=== PATIENT | male | born 1950 | race Caucasian/White ===

== ENCOUNTER 2022-09-09 11:35 | Emergency (ER) | payer OTHER ==
--- OUTSIDE RECORDS SUMMARY | 2022-09-09 11:43 | XMS REPORT | Continuity of Care Document ---
:1950 Author Organization [facility] t Address [address] [place] [address] Care Team Providers Name Role Phone Jason Isaias Villa Attending Clinician Unavailable Ryan Lambert Attending Clinician Unavailable Alberto Attending Clinician Unavailable EMANUEL DEL ROSARIO Attending Clinician Unavailable NATALIE CASTILLO Attending Clinician Unavailable Radiology Attending Clinician Unavailable Kristin Mccall Attending Clinician Unavailable Gerard Knutson MD Attending Clinician RADIOLOGY Attending Clinician Unavailable Lan Ledbetter Admitting Clinician Unavailable Alberto Admitting Clinician Unavailable Ryan Lambert Admitting Clinician Unavailable Payers Payer Name Policy Type Policy Number Effective Date Expiration Date Radha magaña MEDICARE B-[place]: [id number] 2017 NOVITAS SOLUTIONS 00:00:00 TRANSAMERICA [id number] [employer] (MEDICARE SUPPLEMENT) TRANSAMERICA C1 [id number] [facility] MEDICARE NOVITAS [id number] [facility] TRANSAMERICA C1 [id number] [facility] MEDICARE NOVITAS MB [id number] [facility] MEDICARE NOVITAS MB [id number] [facility] [place] [id number] [facility] MEDICARE PART A [id number] \\T\\ B - MEDICARE MEDICARE PART A [id number] 2017 \\T\\ B 00:00:00 COMMERCIAL [id number] 2018 NON-CONTRACT 00:00:00 GENERIC Problems Condition Condition Condition Status Onset Resolution Last Treating Co mments Source Name Details Category Date Date Treatment Clinician Date Pain of Pain of Problem Active 2021-09 Sarah left hip Left Hip 0-26 Orthop e joint Joint 00:00: dic 00 Sports Medicin e Situation Situation Problem Active 2016-09 Aza augusto with with 0-20 Orthope explicit Explicit 00:00: dic context Context 00 Sports Medicin e 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 of 9-06 Orthope hip Hip 00:00: dic 00 Sports Medicin e [id number] Atrial Problem Common flutter, Spirit unspecifie - [facility] d type [facility] [id number] Odynophagi Problem Com mon a [facility] - [facility] [id number] Iron Problem Common deficiency Spirit anemia, - [facility] unspecifie [facility] iron [facility] deficiency Medica l anemia Center type [id number] Benign Problem Common prostatic Spirit hyperplasi - [facility] a, St unspecifie [facility] d whether Medical lower Center urinary tract symptoms present Thyroid Thyroid Problem Common nodule nodule [facility] [id number] Atrial Problem Common fibrillati Spirit on, - [facility]I unspecifie [facility] [id number] Mixed Problem Common hyperlipid Spirit emia - [facility] [id number] Essential Problem Comm on (primary) Spirit hypertensi - [facility] on [facility] [id number] Nontraumat Problem C ommon 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 extent Chronic Stage 3a Problem Common kidney chronic Spirit disease kidney - [facility] stage 3A disease [facility] [id number] Gastric Problem Commo n ulcer, Spirit unspecifie - [facility] d [facility] d whether gastric ulcer hemorrhage or perforatio n present [id number] Constipati Problem Com mon on, Spirit unspecifie - [facility] d constipati [facility] on type Medical Center Allergies, Adverse Reactions, Alerts Allergy Allergy Status Severity Reaction(s) Onset Inactive Treating Comm ents Source Name Type Date Date Clinician adhesive DA Active [place] 2019-09 [facility] tape 09-23 00:00: [address] latex DA Active [place] 2019-09 [facility] 09-23 00:00: [address] adhesive DA Active [place] RASH 2019-09 [facility] tape 09-23 00:00: [address] latex DA Active [place] RASH. 2019-09 [facility] 09-23 00:00: [address] adhesive DA Active LA 2016-09 [facility] tape 0 00:00: [address] latex DA Active [place] 2016-09 [facility] 0 00:00: [address] adhesive DA Active [place] RASH 2016-09 [facility] tape 0 00:00: [address] latex DA Active [place] RASH. 2016-09 [facility] 0 00:00: [address] LATEX Allergy Active Sarah GLOVES to 9-06 Orthope substanc 00:00: dic e 00 Sports Medicin e LATEX DRUG Active Rash [facility] INGREDI 6-15 ity of 00:00: [place] [address] [facility] Latex Latex Active Unknown [facility] Social History Social Habit Start Date Stop Date Quantity Comments Source Exposure to Not sure [facility] Haile l[place] SARS-CoV-2 of Medicine (event) History of [facility] - Tobacco Use [facility] Sex Assigned At [facility] markie - [facility] Tobacco use and 2021-06-09 2021-06-09 Former user [facility] [employer]izan ollege exposure 00:00:00 00:00:00 of Medicine Alcohol intake 2021-06-09 2021-06-09 Ex-drinker [facility] Col lege 00:00:00 00:00:00 (finding) of Medicine Smoking Status Start Date Stop Date Source Never Smoker [facility] Former Smoker 2022-07-10 00:00:00 2022-07-10 00:00:00 [facility] Medications Ordered Filled Start Stop Current Ordering Indication Dosage Frequency Signature Comments Components Source Medication Medication Date Date Medication? Clinician (SIG) Name Name Nitazoxanid 2020-09 Yes 500mg Take 500 B aylor e (ALINIA) 0-04 mg by [facility] 500 MG TABS 13:58: mouth two o f 25 times Medicin daily. e Nitazoxanid 2020-09 Yes 500mg Take 500 B aylor e (ALINIA) 0-04 mg by College 500 MG TABS 13:58: mouth two o f 25 times Medicin daily. e doxycycline Yes TAKE ONE [facility] (VIBRA-TABS 05-27 () College ) 100 MG 00:00: TABLET(S) of tablet 00 BY MOUTH Medicin IN THE e EVENING WITH DINNER. levofloxaci Yes TAKE ONE Ba ylor n 05-27 () College (LEVAQUIN) 00:00: TABLET(S) of 250 MG 00 BY MOUTH Medicin tablet DAILY. e doxycycline Yes TAKE ONE [facility] (VIBRA-TABS 05-27 (1) College ) 100 MG 00:00: TABLET(S) of tablet 00 BY MOUTH Medicin IN THE e EVENING WITH DINNER. levofloxaci Yes TAKE ONE Ba ylor n 05-27 () College (LEVAQUIN) 00:00: TABLET(S) of 250 MG 00 BY MOUTH Medicin tablet DAILY. e pantoprazol Yes TAKE ONE Ba ylor e 05-15 () College (PROTONIX) 00:00: TABLET(S) of 40 MG 00 BY MOUTH Medicin tablet EVERY e MORNING. pantoprazol Yes TAKE ONE Ba ylor e 05-15 () [place] (PROTONIX) 00:00: TABLET(S) of 40 MG 00 BY MOUTH Medicin tablet EVERY e MORNING. Bupivicaine Bupivicaine 2020-0 No 5mg Common [place] Woolwine 05-30 Spirit 00:00: - [facility] Kenalog Kenalog 2020-0 No 40mg Common (Triamcinol (Triamcinol 05-30 S pirit one) one) 00:00: - [facility] Bupivicaine Bupivicaine 2020-0 No 5mg Common [place] Woolwine 05-30 Spirit 00:00: - [facility] 00 [facility] Kenalog Kenalog 2020-0 No 40mg Common (Triamcinol (Triamcinol 9-24 S pirit one) one) 00:00: - [facility] 00 [facility] Bupivicaine Bupivicaine 2020-0 No 5mg Common [place] Woolwine 9-24 Spirit 00:00: - [facility] 00 [facility] Kenalog Kenalog 2020-0 No 40mg Common (Triamcinol (Triamcinol 9-24 S pirit one) one) 00:00: - [facility] 00 [facility] Bupivicaine Bupivicaine 2020-0 No 5mg [facility] [place] Wool[place] 9-24 Spirit 00:00: - [facility] 00 [facility] Kenalog Kenalog 2020-0 No 40mg Common (Triamcinol (Triamcinol 9-24 S pirit one) one) 00:00: - [facility] 00 [facility] Bupivicaine Bupivicaine 2020-0 No 5mg [facility] [place] 9-24 Spirit 00:00: - [facility] 00 [facility] Kenalog Kenalog 2020-0 No 40mg Common (Triamcinol (Triamcinol 9-24 S pirit one) one) 00:00: - [facility] 00 [facility] Bupivicaine Bupivicaine 2020-0 No 5mg [facility] [place] 9-24 Spirit 00:00: - [facility] 00 [facility] Kenalog Kenalog 2020-0 No 40mg Common (Triamcinol (Triamcinol 9-24 S pirit one) one) 00:00: - [facility] 00 [facility] Bupivicaine Bupivicaine 2020-0 No 5mg [facility] [place] 9-24 Spirit 00:00: - [facility] 00 [facility] Kenalog Kenalog 2020-0 No 40mg Common (Triamcinol (Triamcinol 9-24 S pirit one) one) 00:00: - [facility] 00 [facility] Bupivicaine Bupivicaine 2020-0 No 5mg [facility] [place] 9-24 Spirit 00:00: - [facility] 00 [facility] Kenalog Kenalog 2020-0 No 40mg Common (Triamcinol (Triamcinol 9-24 S pirit one) one) 00:00: - [facility] 00 [facility] Bupivicaine Bupivicaine 2020-0 No 5mg Common [place] 9-24 Spirit 00:00: - [facility] 00 [facility] Kenalog Kenalog 2020-0 No 40mg Common (Triamcinol (Triamcinol 9-24 S pirit one) one) 00:00: - [facility] 00 [facility] Bupivicaine Bupivicaine 2020-0 No 5mg Common [place] 9-24 Spirit 00:00: - [facility] 00 [facility] Kenalog Kenalog 2020-0 No 40mg Common (Triamcinol (Triamcinol 9-24 S pirit one) one) 00:00: - [facility] 00 [facility] Bupivicaine Bupivicaine 2020-0 No 5mg [facility] [place] 9-24 Spirit 00:00: - [facility] 00 [facility] Kenalog Kenalog 2020-0 No 40mg Common (Triamcinol (Triamcinol 9-24 S pirit one) one) 00:00: - [facility] 00 [facility] Bupivicaine Bupivicaine 2020-0 No 5mg [facility] [place] 9-24 Spirit 00:00: - [facility] 00 [facility] Kenalog Kenalog 2020-0 No 40mg Common (Triamcinol (Triamcinol 9-24 S pirit one) one) 00:00: - [facility] 00 [facility] Bupivicaine Bupivicaine 2020-0 No 5mg [facility] [place] 9-24 Spirit 00:00: - [facility] 00 [facility] Kenalog Kenalog 2020-0 No 40mg Common (Triamcinol (Triamcinol 9-24 S pirit one) one) 00:00: - [facility] 00 [facility] LISINOPRIL 2016- Yes Take by Univ ers ORAL 7-13 mouth. ity of 13:37: [address] IBUPROFEN-F Yes 20mg Take 20 mg Univers AMOTIDINE 7-13 by mouth. ity o f ORAL 13:37: [address] LISINOPRIL Yes Take by Univ ers ORAL 7-13 mouth. ity of 13:37: [address] IBUPROFEN-F 2017-0 Yes 20mg Take 20 mg [facility] AMOTIDINE 7-13 by mouth. ity o f ORAL 13:37: [address] Xarelto Xarelto No Xarelto Pantoprazol Pantoprazol No Pantoprazo e Sodium e Sodium le Sodium Lisinopril Lisinopril No Lisinopril Azithromyci Azithromyci No Azithromyc n n in CoQ-10 100 CoQ-10 100 No 1{capsu CoQ-10 100 MG MG le_with MG _a_meal } Potassium Potassium No Potassium Chloride ER Chloride ER Chloride ER Iron 325 Iron 325 No 1{table Iron 325 (65 Fe) MG (65 Fe) MG t} (65 Fe) MG Furosemide Furosemide No Furosemide Amoxicillin Amoxicillin No Amoxicilli n Cephalexin Cephalexin No Cephalexin Aspirin 81 Aspirin 81 No Aspirin 81 Xarelto Xarelto No Xarelto Pantoprazol Pantoprazol No Pantoprazo e Sodium e Sodium le Sodium Lisinopril Lisinopril No Lisinopril Azithromyci Azithromyci No Azithromyc n n in CoQ-10 100 CoQ-10 100 No 1{capsu CoQ-10 100 MG MG le_with MG _a_meal } Potassium Potassium No Potassium Chloride ER Chloride ER Chloride ER Iron 325 Iron 325 No 1{table Iron 325 (65 Fe) MG (65 Fe) MG t} (65 Fe) MG Furosemide Furosemide No Furosemide Amoxicillin Amoxicillin No Amoxicilli n Cephalexin Cephalexin No Cephalexin Aspirin 81 Aspirin 81 No Aspirin 81 Xarelto Xarelto No Xarelto Pantoprazol Pantoprazol No Pantoprazo e Sodium e Sodium le Sodium Lisinopril Lisinopril No Lisinopril Azithromyci Azithromyci No Azithromyc n n in CoQ-10 100 CoQ-10 100 No 1{capsu CoQ-10 100 MG MG le_with MG _a_meal } Potassium Potassium No Potassium Chloride ER Chloride ER Chloride ER Iron 325 Iron 325 No 1{table Iron 325 (65 Fe) MG (65 Fe) MG t} (65 Fe) MG Furosemide Furosemide No Furosemide Amoxicillin Amoxicillin No Amoxicilli n Cephalexin Cephalexin No Cephalexin Aspirin 81 Aspirin 81 No Aspirin 81 Xarelto Xarelto No Xarelto Pantoprazol Pantoprazol No Pantoprazo e Sodium e Sodium le Sodium Lisinopril Lisinopril No Lisinopril Azithromyci Azithromyci No Azithromyc n n in CoQ-10 100 CoQ-10 100 No 1{capsu CoQ-10 100 MG MG le_with MG _a_meal } Potassium Potassium No Potassium Chloride ER Chloride ER Chloride ER Iron 325 Iron 325 No 1{table Iron 325 (65 Fe) MG (65 Fe) MG t} (65 Fe) MG Furosemide Furosemide No Furosemide Amoxicillin Amoxicillin No Amoxicilli n Cephalexin Cephalexin No Cephalexin Aspirin 81 Aspirin 81 No Aspirin 81 Vitamin E Vitamin E No 1{capsu QD Vitamin E 180 MG (400 180 MG (400 le} 180 MG UNIT) UNIT) (400 UNIT) Amoxicillin Amoxicillin No Amoxicilli n Furosemide Furosemide No Furosemide Xarelto Xarelto No Xarelto Cephalexin Cephalexin No Cephalexin Azithromyci Azithromyci No Azithromyc n n in Potassium Potassium No Potassium Chloride ER Chloride ER Chloride ER Iron 325 Iron 325 No 1{table Iron 325 (65 Fe) MG (65 Fe) MG t} (65 Fe) MG Lisinopril Lisinopril No 1{table Lisinopril 5 MG 5 MG t} 5 MG CoQ-10 100 CoQ-10 100 No 1{capsu CoQ-10 100 MG MG le_with MG _a_meal } Pantoprazol Pantoprazol No Pantoprazo e Sodium e Sodium le Sodium Docusate Docusate No 1{table QD Docusate Sodium 100 Sodium 100 t_as_ne Sodium 100 MG MG eded} MG Aspirin 81 Aspirin 81 No Aspirin 81 Vitamin E Vitamin E No 1{capsu QD Vitamin E 180 MG (400 180 MG (400 le} 180 MG UNIT) UNIT) (400 UNIT) Amoxicillin Amoxicillin No Amoxicilli n Furosemide Furosemide No Furosemide Xarelto Xarelto No Xarelto Cephalexin Cephalexin No Cephalexin Azithromyci Azithromyci No Azithromyc n n in Potassium Potassium No Potassium Chloride ER Chloride ER Chloride ER Iron 325 Iron 325 No 1{table Iron 325 (65 Fe) MG (65 Fe) MG t} (65 Fe) MG Lisinopril Lisinopril No 1{table Lisinopril 5 MG 5 MG t} 5 MG CoQ-10 100 CoQ-10 100 No 1{capsu CoQ-10 100 MG MG le_with MG _a_meal } Pantoprazol Pantoprazol No Pantoprazo e Sodium e Sodium le Sodium Docusate Docusate No 1{table QD Docusate Sodium 100 Sodium 100 t_as_ne Sodium 100 MG MG eded} MG Aspirin 81 Aspirin 81 No Aspirin 81 Vitamin E Vitamin E No 1{capsu QD Vitamin E 180 MG (400 180 MG (400 le} 180 MG UNIT) UNIT) (400 UNIT) Amoxicillin Amoxicillin No Amoxicilli n Furosemide Furosemide No Furosemide Xarelto Xarelto No Xarelto Cephalexin Cephalexin No Cephalexin Azithromyci Azithromyci No Azithromyc n n in Potassium Potassium No Potassium Chloride ER Chloride ER Chloride ER Iron 325 Iron 325 No 1{table Iron 325 (65 Fe) MG (65 Fe) MG t} (65 Fe) MG Lisinopril Lisinopril No 1{table Lisinopril 5 MG 5 MG t} 5 MG CoQ-10 100 CoQ-10 100 No 1{capsu CoQ-10 100 MG MG le_with MG _a_meal } Pantoprazol Pantoprazol No Pantoprazo e Sodium e Sodium le Sodium Docusate Docusate No 1{table QD Docusate Sodium 100 Sodium 100 t_as_ne Sodium 100 MG MG eded} MG Aspirin 81 Aspirin 81 No Aspirin 81 Vitamin E Vitamin E No 1{capsu QD Vitamin E 180 MG (400 180 MG (400 le} 180 MG UNIT) UNIT) (400 UNIT) Amoxicillin Amoxicillin No Amoxicilli n Furosemide Furosemide No Furosemide Xarelto Xarelto No Xarelto Cephalexin Cephalexin No Cephalexin Azithromyci Azithromyci No Azithromyc n n in Potassium Potassium No Potassium Chloride ER Chloride ER Chloride ER Iron 325 Iron 325 No 1{table Iron 325 (65 Fe) MG (65 Fe) MG t} (65 Fe) MG Lisinopril Lisinopril No 1{table Lisinopril 5 MG 5 MG t} 5 MG CoQ-10 100 CoQ-10 100 No 1{capsu CoQ-10 100 MG MG le_with MG _a_meal } Pantoprazol Pantoprazol No Pantoprazo e Sodium e Sodium le Sodium Docusate Docusate No 1{table QD Docusate Sodium 100 Sodium 100 t_as_ne Sodium 100 MG MG eded} MG Aspirin 81 Aspirin 81 No Aspirin 81 Potassium Potassium No Potassium Chloride ER Chloride ER Chloride ER Iron 325 Iron 325 No 1{table Iron 325 (65 Fe) MG (65 Fe) MG t} (65 Fe) MG Aspirin 81 Aspirin 81 No Aspirin 81 Xarelto Xarelto No Xarelto CoQ-10 100 CoQ-10 100 No 1{capsu CoQ-10 100 MG MG le_with MG _a_meal } Amoxicillin Amoxicillin No Amoxicilli n Vitamin E Vitamin E No 1{capsu QD Vitamin E 180 MG (400 180 MG (400 le} 180 MG UNIT) UNIT) (400 UNIT) Furosemide Furosemide No Furosemide Cephalexin Cephalexin No Cephalexin Docusate Docusate No 1{table QD Docusate Sodium 100 Sodium 100 t_as_ne Sodium 100 MG MG eded} MG Pantoprazol Pantoprazol No Pantoprazo e Sodium e Sodium le Sodium Lisinopril Lisinopril No 1{table QD Lisinopril 2.5 MG 2.5 MG t} 2.5 MG Azithromyci Azithromyci No Azithromyc n n in Potassium Potassium No Potassium Chloride ER Chloride ER Chloride ER Iron 325 Iron 325 No 1{table Iron 325 (65 Fe) MG (65 Fe) MG t} (65 Fe) MG Aspirin 81 Aspirin 81 No Aspirin 81 Xarelto Xarelto No Xarelto CoQ-10 100 CoQ-10 100 No 1{capsu CoQ-10 100 MG MG le_with MG _a_meal } Amoxicillin Amoxicillin No Amoxicilli n Vitamin E Vitamin E No 1{capsu QD Vitamin E 180 MG (400 180 MG (400 le} 180 MG UNIT) UNIT) (400 UNIT) Furosemide Furosemide No Furosemide Cephalexin Cephalexin No Cephalexin Docusate Docusate No 1{table QD Docusate Sodium 100 Sodium 100 t_as_ne Sodium 100 MG MG eded} MG Pantoprazol Pantoprazol No Pantoprazo e Sodium e Sodium le Sodium Lisinopril Lisinopril No 1{table QD Lisinopril 2.5 MG 2.5 MG t} 2.5 MG Azithromyci Azithromyci No Azithromyc n n in Potassium Potassium No Potassium Chloride ER Chloride ER Chloride ER Iron 325 Iron 325 No 1{table Iron 325 (65 Fe) MG (65 Fe) MG t} (65 Fe) MG Aspirin 81 Aspirin 81 No Aspirin 81 Xarelto Xarelto No Xarelto Aleve 220 Aleve 220 No Aleve 220 Sarah mg capsule mg capsule mg capsule Orthope RX by other RX by other RX by dic MD MD shasta FRASER Sports Medicin e CoQ-10 100 CoQ-10 100 No 1{capsu CoQ-10 100 MG MG le_with MG _a_meal } Amoxicillin Amoxicillin No Amoxicilli n Vitamin E Vitamin E No 1{capsu QD Vitamin E 180 MG (400 180 MG (400 le} 180 MG UNIT) UNIT) (400 UNIT) Furosemide Furosemide No Furosemide Cephalexin Cephalexin No Cephalexin Docusate Docusate No 1{table QD Docusate Sodium 100 Sodium 100 t_as_ne Sodium 100 MG MG eded} MG Pantoprazol Pantoprazol No Pantoprazo e Sodium e Sodium le Sodium Lisinopril Lisinopril No 1{table QD Lisinopril 2.5 MG 2.5 MG t} 2.5 MG Azithromyci Azithromyci No Azithromyc n n in CoQ-10 100 CoQ-10 100 No 1{capsu CoQ-10 100 MG MG le_with MG _a_meal } Potassium Potassium No Potassium Chloride ER Chloride ER Chloride ER Xarelto Xarelto No Xarelto Aspirin 81 Aspirin 81 No Aspirin 81 Azithromyci Azithromyci No Azithromyc n n in Pantoprazol Pantoprazol No Pantoprazo e Sodium e Sodium le Sodium Digoxin 125 Digoxin 125 No 1{table Digoxin MCG MCG t} 125 MCG Lisinopril Lisinopril No 1{table QD Lisinopril 2.5 MG 2.5 MG t} 2.5 MG Furosemide Furosemide No Furosemide Metoprolol Metoprolol No 1{table QD Metoprolol Succinate Succinate t} Succinate ER 25 MG ER 25 MG ER 25 MG Eliquis 5 Eliquis 5 No Eliquis 5 mg 5 mg mg 5 mg mg 5 mg Cephalexin Cephalexin No Cephalexin Amiodarone Amiodarone No 1{table QD Amiodarone HCl 200 MG HCl 200 MG t} HCl 200 MG Docusate Docusate No 1{table QD Docusate Sodium 100 Sodium 100 t_as_ne Sodium 100 MG MG eded} MG Iron 325 Iron 325 No 1{table Iron 325 (65 Fe) MG (65 Fe) MG t} (65 Fe) MG Amoxicillin Amoxicillin No Amoxicilli n Vitamin E Vitamin E No 1{capsu QD Vitamin E 180 MG (400 180 MG (400 le} 180 MG UNIT) UNIT) (400 UNIT) CoQ-10 100 CoQ-10 100 No 1{capsu CoQ-10 100 MG MG le_with MG _a_meal } Potassium Potassium No Potassium Chloride ER Chloride ER Chloride ER Xarelto Xarelto No Xarelto Aspirin 81 Aspirin 81 No Aspirin 81 Azithromyci Azithromyci No Azithromyc n n in Pantoprazol Pantoprazol No Pantoprazo e Sodium e Sodium le Sodium Digoxin 125 Digoxin 125 No 1{table Digoxin MCG MCG t} 125 MCG Lisinopril Lisinopril No 1{table QD Lisinopril 2.5 MG 2.5 MG t} 2.5 MG Furosemide Furosemide No Furosemide Metoprolol Metoprolol No 1{table QD Metoprolol Succinate Succinate t} Succinate ER 25 MG ER 25 MG ER 25 MG Eliquis 5 Eliquis 5 No Eliquis 5 mg 5 mg mg 5 mg mg 5 mg Cephalexin Cephalexin No Cephalexin Amiodarone Amiodarone No 1{table QD Amiodarone HCl 200 MG HCl 200 MG t} HCl 200 MG Docusate Docusate No 1{table QD Docusate Sodium 100 Sodium 100 t_as_ne Sodium 100 MG MG eded} MG amoxicillin amoxicillin No amoxicilli Sarah 500 mg 500 mg n 500 mg Orthope capsule capsule capsule dic TAKE FOUR TAKE FOUR TAKE FOUR Sports (4) (4) (4) Medicin CAPSULE(S) CAPSULE(S) CAPSULE(S) e BY MOUTH BY MOUTH BY MOUTH ONE HOUR ONE HOUR ONE HOUR PRIOR TO PRIOR TO PRIOR TO APPOINTMENT APPOINTMENT APPOINTMEN . . T. Iron 325 Iron 325 No 1{table Iron 325 (65 Fe) MG (65 Fe) MG t} (65 Fe) MG Amoxicillin Amoxicillin No Amoxicilli n Vitamin E Vitamin E No 1{capsu QD Vitamin E 180 MG (400 180 MG (400 le} 180 MG UNIT) UNIT) (400 UNIT) CoQ-10 100 CoQ-10 100 No 1{capsu CoQ-10 100 MG MG le_with MG _a_meal } Potassium Potassium No Potassium Chloride ER Chloride ER Chloride ER Xarelto Xarelto No Xarelto Aspirin 81 Aspirin 81 No Aspirin 81 Azithromyci Azithromyci No Azithromyc n n in Pantoprazol Pantoprazol No Pantoprazo e Sodium e Sodium le Sodium Digoxin 125 Digoxin 125 No 1{table Digoxin MCG MCG t} 125 MCG Lisinopril Lisinopril No 1{table QD Lisinopril 2.5 MG 2.5 MG t} 2.5 MG Furosemide Furosemide No Furosemide Metoprolol Metoprolol No 1{table QD Metoprolol Succinate Succinate t} Succinate ER 25 MG ER 25 MG ER 25 MG Eliquis 5 Eliquis 5 No Eliquis 5 mg 5 mg mg 5 mg mg 5 mg Cephalexin Cephalexin No Cephalexin Amiodarone Amiodarone No 1{table QD Amiodarone HCl 200 MG HCl 200 MG t} HCl 200 MG Docusate Docusate No 1{table QD Docusate Sodium 100 Sodium 100 t_as_ne Sodium 100 MG MG eded} MG Iron 325 Iron 325 No 1{table Iron 325 (65 Fe) MG (65 Fe) MG t} (65 Fe) MG Amoxicillin Amoxicillin No Amoxicilli n Vitamin E Vitamin E No 1{capsu QD Vitamin E 180 MG (400 180 MG (400 le} 180 MG UNIT) UNIT) (400 UNIT) Lisinopril Lisinopril No Lisinopril Aspirin 81 Aspirin 81 No Aspirin 81 Pantoprazol Pantoprazol No Pantoprazo e Sodium e Sodium le Sodium Azithromyci Azithromyci No Azithromyc n n in CoQ-10 100 CoQ-10 100 No 1{capsu CoQ-10 100 MG MG le_with MG _a_meal } Furosemide Furosemide No Furosemide Iron 325 Iron 325 No 1{table Iron 325 (65 Fe) MG (65 Fe) MG t} (65 Fe) MG Xarelto Xarelto No Xarelto Amoxicillin Amoxicillin No Amoxicilli n Cephalexin Cephalexin No Cephalexin Potassium Potassium No Potassium Chloride ER Chloride ER Chloride ER Lisinopril Lisinopril No Aspirin 81 Aspirin 81 No Pantoprazol Pantoprazol No e Sodium e Sodium Azithromyci Azithromyci No n n CoQ-10 100 CoQ-10 100 No 1{capsu MG MG le_with _a_meal } Furosemide Furosemide No Iron 325 Iron 325 No 1{table (65 Fe) MG (65 Fe) MG t} Xarelto Xarelto No Amoxicillin Amoxicillin No Cephalexin Cephalexin No Potassium Potassium No Chloride ER Chloride ER Duexis 800 Duexis 800 No Duexis 800 Sarah mg-26.6 mg mg-26.6 mg mg-26.6 mg Orthope tablet RX tablet RX tablet RX dic by other MD by other MD by other Sports MD Medicin e lisinopril lisinopril No lisinopril Sarah 5 mg tablet 5 mg tablet 5 mg O rthope TAKE ONE TAKE ONE tablet dic (1) (1) TAKE ONE Sports TABLET(S) TABLET(S) (1) Medic in BY MOUTH BY MOUTH TABLET(S) e ONCE A DAY. ONCE A DAY. BY MOUTH ONCE A DAY. Suprep Suprep No Suprep Sarah Bowel Prep Bowel Prep Bowel Prep Orthope Kit 17.5 Kit 17.5 Kit 17.5 dic gram-3.13 gram-3.13 gram-3.13 Sports gram-1.6 gram-1.6 gram-1.6 Med icin gram oral gram oral gram oral e solution solution solution USE USE USE DIRECTED BY DIRECTED BY DIRECTED THE DOCTORS THE DOCTORS BY THE OFFICE. OFFICE. DOCTORS OFFICE. Immunizations Ordered Immunization Filled Immunization Date Status Commen ts Source Name Name [facility]wa COVID-19 Moderna COVID-19 2022-06-06 Completed [facility], [facility] 2022-06-06 Com[facility] Vaccine, Bivalent Vaccine, Bivalent 08:26:00 [facility] Moderna COVID-19 Moderna COVID-19 2022-06-06 Completed [facility] Vaccine, Bivalent Vaccine, Bivalent 08:26:00 [facility] FLUZONE HIGH DOSE FLUZONE HIGH DOSE 2022-06-06 Completed [facility] OVER 65 OVER 65 08:25:00 [facility] FLUZONE HIGH DOSE FLUZONE HIGH DOSE 2022-06-06 Completed [facility] OVER 65 OVER 65 08:25:00 [facility] FLUZONE HIGH DOSE FLUZONE HIGH DOSE 2022-06-06 Completed [facility] OVER 65 OVER 65 08:25:00 - [facility] Moderna COVID-19 Moderna COVID-19 2020-10-18 Completed [facility] Vaccine Vaccine 08:59:00 - [facility] Moderna COVID-19 Moderna COVID-19 2020-10-18 Completed [facility] Vaccine Vaccine 08:59:00 - [facility] Moderna COVID-19 Moderna COVID-19 2020-10-18 Completed [facility] Vaccine Vaccine 08:59:00 - [facility] Moderna COVID-19 Moderna COVID-19 2020-10-18 Completed [facility] Vaccine Vaccine 08:59:00 - [facility] Moderna COVID-19 Moderna COVID-19 2020-10-18 Completed [facility] Vaccine Vaccine 08:59:00 - [facility] Moderna COVID-19 Moderna COVID-19 2020-10-18 Completed [facility] Vaccine Vaccine 08:59:00 - [facility] Moderna COVID-19 Moderna COVID-19 2020-10-18 Completed [facility] Vaccine Vaccine 08:59:00 - [facility] Moderna COVID-19 Moderna COVID-19 2020-10-18 Completed [facility] Vaccine Vaccine 08:59:00 - [facility] Moderna COVID-19 Moderna COVID-19 2020-10-18 Completed [facility] Vaccine Vaccine 08:59:00 - [facility] Moderna COVID-19 Moderna COVID-19 2020-10-18 Completed [facility] Vaccine Vaccine 08:59:00 - [facility] Moderna COVID-19 Moderna COVID-19 2020-10-18 Completed [facility] Vaccine Vaccine 08:59:00 - [facility] Moderna COVID-19 Moderna COVID-19 2020-10-18 Completed [facility] Vaccine Vaccine 08:59:00 - [facility] Moderna COVID-19 Moderna COVID-19 2020-10-18 Completed [facility] Vaccine Vaccine 08:59:00 - [facility] Moderna COVID-19 Moderna COVID-19 2020-10-18 Completed [facility] Vaccine Vaccine 08:59:00 - [facility] Moderna COVID-19 Moderna COVID-19 2020-10-18 Completed [facility] Vaccine Vaccine 08:59:00 - [facility] Moderna COVID-19 Moderna COVID-19 2020-10-18 Completed [facility] Vaccine Vaccine 08:59:00 - [facility] Moderna COVID-19 Moderna COVID-19 2020-09-20 Completed [facility] Vaccine Vaccine 08:59:00 - [facility] Moderna COVID-19 Moderna COVID-19 2020-09-20 Completed [facility] Vaccine Vaccine 08:59:00 - [facility] Moderna COVID-19 Moderna COVID-19 2020-09-20 Completed [facility] Vaccine Vaccine 08:59:00 - [facility] Moderna COVID-19 Moderna COVID-19 2020-09-20 Completed [facility] Vaccine Vaccine 08:59:00 - [facility] Moderna COVID-19 Moderna COVID-19 2020-09-20 Completed [facility] Vaccine Vaccine 08:59:00 - [facility] Moderna COVID-19 Moderna COVID-19 2020-09-20 Completed [facility] Vaccine Vaccine 08:59:00 - [facility] Moderna COVID-19 Moderna COVID-19 2020-09-20 Completed [facility] Vaccine Vaccine 08:59:00 - [facility] Moderna COVID-19 Moderna COVID-19 2020-09-20 Completed [facility] Vaccine Vaccine 08:59:00 - [facility] Moderna COVID-19 Moderna COVID-19 2020-09-20 Completed [facility] Vaccine Vaccine 08:59:00 - [facility] Moderna COVID-19 Moderna COVID-19 2020-09-20 Completed [facility] Vaccine Vaccine 08:59:00 - [facility] Moderna COVID-19 Moderna COVID-19 2020-09-20 Completed [facility] Vaccine Vaccine 08:59:00 - [facility] Moderna COVID-19 Moderna COVID-19 2020-09-20 Completed [facility] Vaccine Vaccine 08:59:00 - [facility] Moderna COVID-19 Moderna COVID-19 2020-09-20 Completed [facility] Vaccine Vaccine 08:59:00 - [facility] Moderna COVID-19 Moderna COVID-19 2020-09-20 Completed [facility] Vaccine Vaccine 08:59:00 - [facility] Moderna COVID-19 Moderna COVID-19 2020-09-20 Completed [facility] Vaccine Vaccine 08:59:00 - [facility] Moderna COVID-19 Moderna COVID-19 2020-09-20 Completed [facility] Vaccine Vaccine 08:59:00 [facility] Vital Signs Vital Name Observation Time Observation Value Comments Source height 2022-07-13 08:30:00 68 [in_i] [facility] weight 2022-07-13 08:30:00 136.5 [lb_av] Common [facility] temperature 2022-07-13 08:30:00 97.6 [degF] [facility] bmi 2022-07-13 08:30:00 20.75 kg/m2 [facility] oximetry 2022-07-13 08:30:00 99 % [facility] respiratory rate 2022-07-13 08:30:00 17 /min Comm on [facility] blood pressure 2022-07-13 08:30:00 101 mm[Hg] Common [facility] - systolic [facility] blood pressure 2022-07-13 08:30:00 54 mm[Hg] Common [facility] - diastolic [facility] Height 2022-07-08 00:00:00 69 [in_i] [facility] BMI (Body Mass 2022-07-08 00:00:00 25 kg/m2 [facility] Body Weight 2022-07-08 00:00:00 169 [lb_av] [facility] height 2022-03-11 08:50:00 68 [in_i] Common [facility] weight 2022-03-11 08:50:00 134.9 [lb_av] [facility] temperature 2022-03-11 08:50:00 98.4 [degF] Common S pirit [facility] bmi 2022-03-11 08:50:00 20.51 kg/m2 Common [facility] oximetry 2022-03-11 08:50:00 98 % Common [facility] respiratory rate 2022-03-11 08:50:00 17 /min Comm on [facility] blood pressure 2022-03-11 08:50:00 119 mm[Hg] Common [facility] - systolic [facility] blood pressure 2022-03-11 08:50:00 53 mm[Hg] [facility] - diastolic [facility] height 2021-11-13 08:00:00 68 [in_i] Common [facility] weight 2021-11-13 08:00:00 135.3 [lb_av] [facility] temperature 2021-11-13 08:00:00 97.8 [degF] Common [facility] bmi 2021-11-13 08:00:00 20.57 kg/m2 [facility] oximetry 2021-11-13 08:00:00 99 % [facility] respiratory rate 2021-11-13 08:00:00 16 /min Comm on [facility] blood pressure 2021-11-13 08:00:00 121 mm[Hg] [facility] - systolic [facility] blood pressure 2021-11-13 08:00:00 60 mm[Hg] [facility] - diastolic [facility] height 2021-11-13 08:20:00 68 [in_i] Common [facility] weight 2021-11-13 08:20:00 135.3 [lb_av] Common [facility] temperature 2021-11-13 08:20:00 97.8 [degF] Common [facility] bmi 2021-11-13 08:20:00 20.57 kg/m2 Common [facility] oximetry 2021-11-13 08:20:00 99 % Common [facility] respiratory rate 2021-11-13 08:20:00 16 /min Comm on [facility] blood pressure 2021-11-13 08:20:00 121 mm[Hg] Common [facility] - systolic [facility] blood pressure 2021-11-13 08:20:00 60 mm[Hg] Common [facility] - diastolic [facility] height 2021-07-24 08:20:00 68 [in_i] [facility] weight 2021-07-24 08:20:00 135.3 [lb_av] [facility] temperature 2021-07-24 08:20:00 98.2 [degF] Common [facility] bmi 2021-07-24 08:20:00 20.57 kg/m2 [facility] oximetry 2021-07-24 08:20:00 100 % [facility] respiratory rate 2021-07-24 08:20:00 16 /min Comm on [facility] blood pressure 2021-07-24 08:20:00 127 mm[Hg] Common [facility] - systolic [facility] blood pressure 2021-07-24 08:20:00 65 mm[Hg] Common [facility] - diastolic [facility] Body height 2021-06-09 18:54:00 172.7 cm [facility] Body weight 2021-06-09 18:54:00 62.143 kg [facility] BMI 2021-06-09 18:54:00 20.83 kg/m2 [facility] Systolic blood 2021-06-09 18:54:00 100 mm[Hg] [facility] pressure Medicine Diastolic blood 2021-06-09 18:54:00 62 mm[Hg] [facility] pressure Medicine Heart rate 2021-06-09 18:54:00 49 /min [facility] Procedures Procedure Date / Time Performing Clinician Source Performed XR, hip + pelvis, 2022-07-08 00:00:00 Sarah Allen hopedic unilateral, 2 or 3 view Sports M edicine [id number] 2020-07-24 00:00:00 PEPGR [facility] [id number] 2020-07-24 00:00:00 PEPGR [facility] [id number] 2020-07-24 00:00:00 PEPGR [facility] [id number] 2020-07-24 00:00:00 MCKRO [facility] [id number] 2020-07-24 00:00:00 [facility] [place] MODIFIED BARIUM SWALLOW 2020-07-03 18:38:00 Requisition, Yfn david [facility] [place] NOTICE OF BILLING 2020-07-03 18:03:17 Doctor Unassigned, [facility] PRACTICES FOR MEDICARE [facility] PATIENTS [facility] PATIENT FINANCIAL 2020-07-03 18:02:30 Doctor Unassigned, [facility] POLICY [facility] NO SHOW OR MISSED 2020-07-03 18:01:50 Doctor Unassigned, [facility] APPOINTMENT POLICY [facility] ACKNOWLEDGEMENT CONSENT/REFUSAL FOR 2020-07-03 18:01:25 Doctor Unassigned, [facility] DIAGNOSIS AND TREATMENT [facility] ASSIGNMENT OF BENEFITS 2020-07-03 18:00:50 Doctor Unassigned, [facility] Total Hip Arthroplasty 2017-06-10 00:00:00 Kelly yu [facility] Plan of Care Planned Activity Planned Date Details Comments Source Future Scheduled 2021-06-09 TSH [code = 58625-6] Ordered: [facility] Test 14:28:15 06/09/2021 of Medicine Future Scheduled 2021-06-09 T4 FREE [code = Ordered: [facility] jerrell Test 14:28:15 3024-7] 06/09/2021 of Medicine Future Scheduled 2021-06-09 T3 [code = 3053-6] Ordered: [employer] Test 14:28:15 06/09/2021 of Medicine Future Scheduled 2021-06-09 THYROID STIMULATING Ordered: [employer] Test 14:28:15 IMMUNOGLOBULIN [code 06/09/2021 of [employer] = 02538-1] Future Scheduled 2021-06-09 TSH [code = 37429-6] Ordered: [place] [facility] [employer] Test 14:28:15 06/09/2021 of Medicine Future Scheduled 2021-06-09 T4 FREE [code = Ordered: [facility] C [facility]lege Test 14:28:15 3024-7] 06/09/2021 of Medicine Future Scheduled 2021-06-09 T3 [code = 3053-6] Ordered: [employer] Test 14:28:15 06/09/2021 of Medicine Future Scheduled 2021-06-09 THYROID STIMULATING Ordered: [employer] [employer] Test 14:28:15 IMMUNOGLOBULIN [code 06/09/2021 of [employer] = 48430-2] Future Scheduled 2021-06-09 Screening for [facility] Col lege Test 13:55:56 malignant neoplasm of of Med icine colon (procedure) [code = 661885382] Future Scheduled 2021-06-09 TETANUS SHOT (ADULT) [facility] Test 13:55:56 [code = TETANUS SHOT of [facility] cine (ADULT)] Future Scheduled 2021-06-09 Hepatitis C screening [facility] Test 13:55:56 (procedure) [code = of Medic ine 119479917] Future Scheduled 2021-06-09 ZOSTER VACCINE (1 of [place] [employer] Test 13:55:56 2) [code = ZOSTER of Medicin e VACCINE (1 of 2)] Future Scheduled 2021-06-09 MEDICARE AWV [facility] Veronica ege Test 13:55:56 (Initial) [code = of Medicin e MEDICARE AWV (Initial)] Future Scheduled 2021-06-09 FALL SCREEN [code = [employer] Test 13:55:56 FALL SCREEN] of Medicine Future Scheduled 2021-06-09 PNEUMOVAX >=65 [facility] Test 13:55:56 (PPSV23) [code = of Medicine PNEUMOVAX >=65 (PPSV23)] Future Scheduled 2021-06-09 FLU VACCINE > 6 [facility] C [facility]lege Test 13:55:56 MONTHS [code = FLU of Medici ne VACCINE > 6 MONTHS] Future Scheduled 2021-06-09 Screening for [facility] Col [facility]ge Test 13:55:56 malignant neoplasm of of Med icine colon (procedure) [code = 514251753] Future Scheduled 2021-06-09 TETANUS SHOT (ADULT) [place] [employer] Test 13:55:56 [code = TETANUS SHOT of Medi cine (ADULT)] Future Scheduled 2021-06-09 [facility] [place] Test 13:55:56 (procedure) [code = of Medic ine 400849318] Future Scheduled 2021-06-09 ZOSTER VACCINE (1 of [place] [facility] [place] Test 13:55:56 2) [code = ZOSTER of Medicin e VACCINE (1 of 2)] Future Scheduled 2021-06-09 MEDICARE AWV [facility] Test 13:55:56 (Initial) [code = of Medicin e MEDICARE AWV (Initial)] Future Scheduled 2021-06-09 FALL SCREEN [code = [employer] Test 13:55:56 FALL SCREEN] of Medicine Future Scheduled 2021-06-09 PNEUMOVAX >=65 [facility] Test 13:55:56 (PPSV23) [code = of Medicine PNEUMOVAX >=65 (PPSV23)] Future Scheduled 2021-06-09 FLU VACCINE > 6 [facility] C [facility]lege Test 13:55:56 MONTHS [code = FLU of Medici ne VACCINE > 6 MONTHS] Instructions [facility] Encounters Start End Encounter Admission Attending Care Care Encounter Source Date/Time Date/Time Type Type Clinicians Facility Department ID 2022-07-09 Outpatient Gomez, [facility] [id number] Common 10:23:01 Isaias [facility] 2022-03-11 Outpatient Gomez, [facility] [id number] Common 08:41:01 Isaias [facility] 2021-11-13 Outpatient Gomez, [facility] [id number] Common 08:04:00 Isaias [facility] 2021-10-01 Outpatient Gomez, [facility] [id number] Common 13:40:22 Isaias 42610 [facility] 2021-10-01 Outpatient Gomez, STLMLC ST[facility] [id number] Common 13:39:18 Isaias 64143 [facility] 2021-10-01 Outpatient Gomez, [facility]ML[facility] [id number] Common 13:35:14 Isaias 37053 [facility] 2021-10-01 Outpatient Gomez, [facility]ML[facility] ST[facility] [id number] Common 13:28:20 Isaias 64555 [facility] 2021-10-01 Outpatient Gomez, [facility]ML[facility] [id number] Common 13:22:51 Isaias 06869 [facility] 2021-10-01 Outpatient Gomez, [facility]LML[facility] [id number] Common 13:19:37 Isaias 35909 [facility] 2021-10-01 Outpatient Gomez, [facility] [id number] Common 13:05:19 Isaias 45610 [facility] 2021-10-01 Outpatient [facility]ML[facility] [id number] Common 11:48:57 79003 [facility] 2020-07-24 Inpatient EL Petra, [facility] [id number] [facility] 07:30:[address] [facility] 2022-09-02 2022-09-02 (TEL) STLMLC STLMLC [id number] [facility] 00:00:00 00:00:00 [facility] 2022-08-14 2022-08-14 Outpatient FOG_Mathemely AOSM AOSM [id number] Sarah 00:00:00 00:00:00 _Betzy [id number] [facility] 2022-08-03 2022-08-04 Inpatient LORELEI Lambert, [facility] [id number] [facility] 17:28:00 11:35:[address] [facility] 2022-07-20 2022-07-20 (TEL) STLMLC STLMLC [id number] Co mmon 00:00:00 00:00:00 [facility] 2022-07-13 2022-07-13 [facility]ICE [facility] [id number] Co mmon 00:00:00 00:00:00 VISIT [facility] PT - CHI LEVEL 4 [facility] 2022-07-10 2022-07-10 Outpatient FOG_Mathews AOSM AOSM [id number] Sarah 00:00:00 00:00:00 _Betzy [id number] [facility] 2022-07-10 2022-07-10 (WEB) [facility] [id number] Co mmon 00:00:00 00:00:00 [facility] 2022-07-08 2022-07-08 Outpatient FOG_Mathews AOSM AOSM [id number] Sarah 00:00:00 00:00:00 _Betzy [id number] [facility] 2022-07-08 2022-07-08 Rayn AOSM [place] - Ortho [id number] Sarah 00:00:00 00:00:00 Hanane Wiggins MD: [id number] FOG_Ofc dic [facility], [place] [id number] , Ph. [phone] 2022-07-06 2022-07-06 Outpatient FOG_Mathews AOSM AOSM [id number] Sarah 00:00:00 00:00:00 _Betzy [id number] Orth [facility] Medicin e 2022-06-29 2022-06-29 Outpatient FOG_Mathews AOSM AOSM [id number] Sarah 00:00:00 00:00:00 _Betzy [id number] Orth [facility] Medicin e 2022-05-25 2022-05-25 (WEB) [facility] [id number] Co mmon 00:00:00 00:00:00 [facility] 2022-03-11 2022-03-11 OFFICE [facility] [id number] Co mmon 00:00:00 00:00:00 VISIT [facility] PT - CHI LEVEL 4 [facility] 2021-12-31 2021-12-31 (TEL) STLMLC STLMLC [id number] Co mmon 00:00:00 00:00:00 [facility] 2021-11-24 2021-11-24 (TEL) STLMLC STLMLC [id number] Co mmon 00:00:00 00:00:00 [facility] 2021-11-13 2021-11-13 OFFICE STLMLC STL[facility]C [id number] Co mmon 00:00:00 00:00:00 VISIT [facility] PT - CHI LEVEL 4 [facility] 2021-11-13 2021-11-13 SUB ANNUAL STLMLC STLMLC [id number] Common 00:00:00 00:00:00 MCR [facility] WELLNESS - CHI VISIT [facility] 2021-11-03 2021-11-03 (WEB) STLMLC STLMLC [id number] Co mmon 00:00:00 00:00:00 [facility] 2021-11-03 2021-11-03 (WEB) STLMLC STLMLC [id number] Co mmon 00:00:00 00:00:00 [facility] 2021-10-30 2021-10-30 (WEB) STLMLC STLMLC [id number] Co mmon 00:00:00 00:00:00 [facility] 2021-07-24 2021-07-24 OFFICE STLMLC STLMLC [id number] Co mmon 00:00:00 00:00:00 VISIT [facility] PT - CHI LEVEL 4 [facility] 2021-07-21 2021-07-21 (WEB) STLMLC STLMLC [id number] Co mmon 00:00:00 00:00:00 [facility] 2021-06-12 2021-06-12 (TEL) STLMLC STLMLC [id number] Co mmon 00:00:00 00:00:00 [facility] 2021-06-09 2021-06-09 Office CARIN, EMANUEL DOWLING [id number] [facility] 13:36:18 17:11:25 Visit AMBULATOR [id number] College Y 0.2.7.2.686 of [id number] [facility] marla 310 e 2021-04-25 2021-04-25 Outpatient STLMLC STLMLC [id number] Common 00:00:00 00:00:00 [facility] 2021-04-23 2021-04-23 Outpatient STLMLC STL[facility]C [id number] Common 00:00:00 00:00:00 [facility] 2021-04-21 2021-04-21 Outpatient STLMLC STL[facility]C [id number] Common 00:00:00 00:00:00 [facility] 2021-04-15 2021-04-15 Outpatient STLMLC ST[facility]C [id number] Common 00:00:00 00:00:00 [facility] 2021-04-10 2021-04-10 Outpatient STLMLC STL[facility]C [id number] Common 00:00:00 00:00:00 [facility] 2021-04-03 2021-04-03 Outpatient STLMLC ST[facility]C [id number] Common 00:00:00 00:00:00 [facility] 2021-03-26 2021-03-26 Outpatient STLMLC STLMLC [id number] Common 00:00:00 00:00:00 [facility] 2021-03-26 2021-03-26 Outpatient STLMLC STLMLC [id number] Common 00:00:00 00:00:00 [facility] 2021-03-24 2021-03-24 Outpatient STLMLC STLMLC [id number] Common 00:00:00 00:00:00 [facility] 2021-03-21 2021-03-21 Outpatient STLMLC STLMLC [id number] Common 00:00:00 00:00:00 [facility] 2021-03-20 2021-03-20 Outpatient STLMLC STLMLC [id number] Common 00:00:00 00:00:00 [facility] 2021-03-12 2021-03-12 Outpatient STLMLC STLMLC [id number] Common 00:00:00 00:00:00 [facility] 2020-10-11 2020-10-11 Outpatient R ANNA, [facility] [id number] Univers 11:40:00 11:40:00 NATALIE ity [facility] 2020-09-13 2020-09-13 Outpatient R ANNA, [facility] [id number] Univers 13:40:00 13:40:00 NATALIE ity [facility] 2020-09-12 2020-09-12 Outpatient R ANNA, [facility] [id number] Univers 10:00:00 10:00:00 NATALIE ity [facility] 2020-07-03 2020-07-03 [facility] Radiology [facility] [id number] Univers 12:59:57 23:59:00 Encounter [place] [id number] ity of [place] [id number] [address] 2020-07-03 2020-07-03 [facility] Radiology [facility] [id number] 12:59:57 23:59:00 Encounter [place] [id number] [place] 4.2.7.2.686 [place] [id number] [facility] 2020-07-03 2020-07-03 Outpatient R [facility] [id number] Univers 14:30:00 14:[facility] 2020-07-03 Ancillary Kristin [place] [facility] 1.2.8 [id number] Univers 13:41:02 14:26:02 Visit Gerard Knutson [id number] [place] [id number] Sd dical [address] 2020-07-03 2020-07-03 Ancillary Stanislav [facility] [id number] 13:41:02 14:26:02 Visit Kristin Nunez [id number] [place] 4.2.7.2.686 Professio [id number] [address] 2020-07-03 2020-07-03 Outpatient R RADIOLOGY [facility] [id number] Univers 00:00:00 00:00:00 ity of [facility] 2020-05-30 2020-05-30 Outpatient STLMLC STLMLC [id number] Common 00:00:00 00:00:00 [facility] Results Test Description Test Time Test Comments Results Result Comments Source CBC W/AUTO DIFF 2022-08-04 08:51:00 Test Item Value Reference Range Interpretation Comme nts WHITE BLOOD CELL (test code = WBC) 6.4 K/MM3 3.8-9.8 N RED BLOOD CELL (test code = RBC) 3.99 M/MM3 3.95-5.67 HEMOGLOBIN (test code = HGB) 12.6 G/DL 12.4-16.7 HEMATOCRIT (test code = HCT) 38.8 % 35.9-49.5 MEAN CELL VOLUME (test code = MCV) 97 fL 81.7-96.1 H MEAN CELL HGB (test code = MCH) 31.6 pg 27.6-33.2 N MEAN CELL HGB CONCETRATION (test code = MCHC) 32.5 % 32.9-35. 5 L RED CELL DISTRIBUTION WIDTH (test code = RDW) 13.2 % 12.1-15. 2 N PLATELET COUNT (test code = PLT) 170 K/MM3 129-368 N MEAN PLATELET VOLUME (test code = MPV) 10.0 fl 7.4-10.4 N NEUTROPHIL % (test code = NT%) 91.5 % 43-75 H IMMATURE GRANULOCYTE % (test code = IG%) 0.3 % 0.0-2.0 N LYMPHOCYTE % (test code = LY%) 5.2 % 14-44 L MONOCYTE % (test code = MO%) 3.0 % 4-13 L EOSINOPHIL % (test code = EO%) 0.0 % 0-6 N BASOPHIL % (test code = BA%) 0 % 0-2 N NUCLEATED RBC % (test code = NRBC%) 0.0 % 0-1.0 N NEUTROPHIL # (test code = NT#) 5.85 K/mm3 2.0-7.6 N IMMATURE GRANULOCYTE # (test code = IG#) 0.02 x10 3/uL 0-0.03 N LYMPHOCYTE # (test code = LY#) 0.33 K/mm3 1.0-3.8 L MONOCYTE # (test code = MO#) 0.19 K/mm3 0.1-0.8 N EOSINOPHIL # (test code = EO#) 0.00 K/mm3 0.0-0.2 N BASOPHIL # (test code = BA#) 0 K/mm3 0.0-0.2 N NUCLEATED RBC # (test code = NRBC#) 0.00 K/mm3 0.0-0.1 N BASIC METABOLIC [id number] 05:37:00 Test Item Value Reference Range Interpretation Comments SODIUM (test code = 131 MMOL/L 137-145 L NA) POTASSIUM (test code 5.0 MMOL/L 3.5-5.1 N = K) CHLORIDE (test code 107 MMOL/L 98-107 N = CL) CARBON DIOXIDE (test 16 MMOL/L 22-30 L code = CO2) ANION GAP (test code 13 MMOL/L 14-24 L = GAP) GLUCOSE (test code = 142 MG/DL 74-106 H GLU) BLOOD UREA NITROGEN 23 MG/DL 9-20 H (test code = BUN) GLOMERULAR > 60 The Glomerular FILTRATION RATE Filtration R ate is a (test code = GFR) calculated parameterbased on serum Creatinine, pat ient age and sex. GFR va luesless than 60 mL/min/ 1.73 square meters a re indicative ofCh ronic Kidney Disease. Values less than 15 mL/min/1.73squa re meters indicate Kidney failure. The calculation for GFR is based on the CK D-EPI (2020) calculat ion. This formulais race indifferent and is the recommended for afshin for GFRby the Natio nal Kidney Foundati on for Adults.The GFR will not calculate if th e sex is unknown or if thepatient's ag e is <18 years. CREATININE (test 0.90 MG/DL 0.66-1.25 code = CREAT) CALCIUM (test code = 8.7 MG/DL 8.4-10.2 N CA) PROTHROMBIN [id number] 09:48:00 Test Item Value Reference Range Interpretation Comments PROTHROMBIN TIME 14.5 SECONDS 9.4-12.7 H PATIENT (test code = PTP) INTERNATIONAL NORMAL 1.3 0.86-1.14 H The INR is to be RATIO (test code = used only for INR) monitoring oral anticoagulantth erap y. INDICATION I NR VALUE ---- ---- ---- -------1. Prophylaxis, de ep venous thrombos is, including high risk surgery. 2.0 - 3.0 2. Prophylaxis, deep venous thrombosis, hip surgery, treatm ent for deep venous thrombosis or pulmonary prevention of systemic emboli sm in patients wit h valvular heart disease, atrial fibrillation, tissue heart va lve, or acute myocar dial infarction. 2.0 - 3.0 3. Handstitching Machine Collar Feller al prosthesis hear t valves, recurre nt systemic emboli sm. 3.0 - 4.5 PTT [id number] 09:48:00 Test Item Value Reference Range Interpretation Comments PTT ACTIVATED (test code = APTT) 34.8 SECONDS 26.2-35.4 N BASIC METABOLIC [id number] 09:43:00 Test Item Value Reference Range Interpretation Comments SODIUM (test code = 140 MMOL/L 137-145 N NA) POTASSIUM (test code 4.5 MMOL/L 3.5-5.1 N = K) CHLORIDE (test code 105 MMOL/L 98-107 N = CL) CARBON DIOXIDE (test 29 MMOL/L 22-30 N code = CO2) ANION GAP (test code 11 MMOL/L 14-24 L = GAP) GLUCOSE (test code = 110 MG/DL 74-106 H GLU) BLOOD UREA NITROGEN 23 MG/DL 9-20 H (test code = BUN) GLOMERULAR > 60 The Glomerular FILTRATION RATE Filtration R ate is a (test code = GFR) calculated parameterbased on serum Creatinine, pat ient age and sex. GFR va luesless than 60 mL/min/ 1.73 square meters a re indicative ofCh ronic Kidney Disease. Values less than 15 mL/min/1.73squa re meters indicate Kidney failure. The calculation for GFR is based on the CK D-EPI (2020) calculat ion. This formulais race indifferent and is the recommended for afshin for GFRby the Natio nal Kidney Foundati on for Adults.The GFR will not calculate if th e sex is unknown or if thepatient's ag e is <18 years. CREATININE (test 1.10 MG/DL 0.66-1.25 N code = CREAT) CALCIUM (test code = 9.4 MG/DL 8.4-10.2 CA) [id number] 09:43:00 Test Item Value Reference Range Interpretation Comments MAGNESIUM (test code = MAG) 2.0 MG/DL 1.6-2.3 N CBC W/AUTO [id number] 09:19:00 Test Item Value Reference Range Interpretation Comments WHITE BLOOD CELL (test code = 6.4 K/MM3 3.8-9.8 N WBC) RED BLOOD CELL (test code = 4.70 M/MM3 3.95-5.67 N RBC) HEMOGLOBIN (test code = HGB) 14.6 G/DL 12.4-16.7 N HEMATOCRIT (test code = HCT) 44.7 % 35.9-49.5 N MEAN CELL VOLUME (test code = 95 fL 81.7-96.1 N MCV) MEAN CELL HGB (test code = MCH) 31.1 pg 27.6-33.2 N MEAN CELL HGB CONCETRATION 32.7 % 32.9-35.5 L (test code = MCHC) RED CELL DISTRIBUTION WIDTH 13.1 % 12.1-15.2 N (test code = RDW) PLATELET COUNT (test code = 212 K/MM3 129-368 N PLT) MEAN PLATELET VOLUME (test code 9.2 fl 7.4-10.4 N = MPV) NEUTROPHIL % (test code = NT%) 66.0 % 43-75 N IMMATURE GRANULOCYTE % (test 0.2 % 0.0-2.0 N code = IG%) LYMPHOCYTE % (test code = LY%) 19.2 % 14-44 N MONOCYTE % (test code = MO%) 11.8 % 4-13 N EOSINOPHIL % (test code = EO%) 2.0 % 0-6 N BASOPHIL % (test code = BA%) 0.8 % 0-2 N NUCLEATED RBC % (test code = 0.0 % 0-1.0 N NRBC%) NEUTROPHIL # (test code = NT#) 4.20 K/mm3 2.0-7.6 N IMMATURE GRANULOCYTE # (test 0.01 x10 3/uL 0-0.03 N code = IG#) LYMPHOCYTE # (test code = LY#) 1.22 K/mm3 1.0-3.8 N MONOCYTE # (test code = MO#) 0.75 K/mm3 0.1-0.8 N EOSINOPHIL # (test code = EO#) 0.13 K/mm3 0.0-0.2 N BASOPHIL # (test code = BA#) 0.05 K/mm3 0.0-0.2 N NUCLEATED RBC # (test code = 0.00 K/mm3 0.0-0.1 N NRBC#) CBC W/AUTO [id number] 12:51:00 Test Item Value Reference Range Interpretation Comments WHITE BLOOD CELL (test code = 18.6 K/MM3 3.8-9.8 H WBC) RED BLOOD CELL (test code = 3.43 M/MM3 3.95-5.67 L RBC) HEMOGLOBIN (test code = HGB) 10.7 G/DL 12.4-16.7 L HEMATOCRIT (test code = HCT) 33.6 % 35.9-49.5 L MEAN CELL VOLUME (test code = 98 fL 81.7-96.1 H MCV) MEAN CELL HGB (test code = MCH) 31.2 pg 27.6-33.2 N MEAN CELL HGB CONCETRATION 31.8 % 32.9-35.5 L (test code = MCHC) RED CELL DISTRIBUTION WIDTH 15.2 % 12.1-15.2 N (test code = RDW) PLATELET COUNT (test code = 153 K/MM3 129-368 N PLT) MEAN PLATELET VOLUME (test code 10.5 fl 7.4-10.4 H = MPV) NEUTROPHIL % (test code = NT%) 82.5 % 43-75 H IMMATURE GRANULOCYTE % (test 1.5 % 0.0-2.0 N code = IG%) LYMPHOCYTE % (test code = LY%) 5.4 % 14-44 L MONOCYTE % (test code = MO%) 10.0 % 4-13 N EOSINOPHIL % (test code = EO%) 0.4 % 0-6 N BASOPHIL % (test code = BA%) 0.2 % 0-2 N NUCLEATED RBC % (test code = 0.3 % 0-1.0 N NRBC%) NEUTROPHIL # (test code = NT#) 15.33 K/mm3 2.0-7.6 H IMMATURE GRANULOCYTE # (test 0.28 x10 3/uL 0-0.03 H code = IG#) LYMPHOCYTE # (test code = LY#) 1.01 K/mm3 1.0-3.8 N MONOCYTE # (test code = MO#) 1.86 K/mm3 0.1-0.8 H EOSINOPHIL # (test code = EO#) 0.08 K/mm3 0.0-0.2 N BASOPHIL # (test code = BA#) 0.04 K/mm3 0.0-0.2 N NUCLEATED RBC # (test code = 0.06 K/mm3 0.0-0.1 N NRBC#) - XR CHEST [id number] 08:09:00 [facility] : 1950 Sex: M Patient Name: ALEXIS GAUTHIER Unit No: [id number] EXAMS: CPT CODE: [id number] XR CHEST 1V [id number] - XR CHEST 1V. LOCATION: . HISTORY: AFIB. COMPARISON: Radiograph dated 07/28/2020. TECHNIQUE: Single AP view of the chest was obtained. FINDINGS: The heart is normal in size. Small bilateral pleural effusions and bibasilar opacities are unchanged. No acute osseous abnormality is identified. IMPRESSION: Small bilateral pleural effusions with bibasilar opacities, unchanged. at 0809 Reported and signed by: Rachel Gray MD CC: Lan Ledbetter MD; Ryan Lambert Technologist: Peyton Osborne RT(R) Transcrpt Date/Tm/Trnsp: 07/30/2020 (08) [email or web address] Orig Print D/T: S: 07/30/2020 (0812) APRIL [place] NAME: ALEXIS GAUTHIER [id number] PHYS: [place] [address] : 1950 AGE: 70 SEX: M LOC: [id number] A PHONE #: [phone] EXAM DATE: 07/30/2020 STATUS: ADM IN FAX #: [phone] RADIOLOGY NO: PAGE 1 Signed ReportCOMPREHENSIVE METABOLIC [id number] 07:04:00 Test Item Value Reference Range Interpretation Comments SODIUM (test code = 132 MMOL/L 137-145 L NA) POTASSIUM (test code 3.2 MMOL/L 3.5-5.1 L = K) CHLORIDE (test code 92 MMOL/L 98-107 L = CL) CARBON DIOXIDE (test 33 MMOL/L 22-30 H code = CO2) ANION GAP (test code 10 MMOL/L 14-24 L = GAP) GLUCOSE (test code = 118 MG/DL 74-106 H GLU) BLOOD UREA NITROGEN 32 MG/DL 9-20 H (test code = BUN) GLOMERULAR > 60 Reporting units : FILTRATION RATE ml/min/1.73 m2 (test code = GFR) (Modified MDRD Formula)Referen ce Range: > or = 6 0 ml/min/1.73 m2 CREATININE (test 1.00 MG/DL 0.66-1.25 N code = CREAT) TOTAL PROTEIN (test 4.8 G/DL 6.2-7.6 L code = PROT) ALBUMIN (test code = 2.5 G/DL 3.5-5.0 L ALB) CALCIUM (test code = 7.7 MG/DL 8.4-10.2 L CA) BILIRUBIN TOTAL 1.2 MG/DL 0.2-1.3 N Eltrombopag (test code = BILT) Interfere nce for Vitros Product TBil, BuBc: ======= ======= ======A ssay Eltrombopa g Analyte/ Max Ob served Avg. Bias Concentration Concentration Concentration== ======= ======= ======= =======TBil 7mg /dl TBil/ 1.2mg/dl +0.23mg.dl +0.20mg/dlBuBc 3.5mg/dl Bu/0.8 mg/dl +0.25mg/dl +0.24mg/dlBuBc 7 mg/dl Bu/14.2mg/dl +0.38mg/dl +0.25mg/dlBuBc 5mg/dl Bc/0mg/dl +0.25 mg/dl +0.15mg/dlBuBc 3.5mg/dl Bc/2.8 mg/dl +0.25mg/dl +0.2 3mg/dl SGOT/AST (test code 91 UNITS/L 17-59 H = AST) SGPT/ALT (test code 320 UNITS/L <50 = ALT) ALKALINE PHOSPHATASE 75 UNITS/L 38-126 (test code = ALKP) [id number] 07:04:00 Test Item Value Reference Range Interpretation Comments MAGNESIUM (test code = MAG) 2.0 MG/DL 1.6-2.3 N COMPREHENSIVE METABOLIC [id number] 06:56:00 Test Item Value Reference Range Interpretation Comments SODIUM (test code = NA) 132 MMOL/L 137-145 L POTASSIUM (test code = K) 3.2 MMOL/L 3.5-5.1 L CHLORIDE (test code = CL) 92 MMOL/L 98-107 L CARBON DIOXIDE (test code = CO2) MMOL/L 22-30 GLUCOSE (test code = GLU) MG/DL 74-106 BLOOD UREA NITROGEN (test code = MG/DL 9-20 BUN) GLOMERULAR FILTRATION RATE (test code = GFR) CREATININE (test code = CREAT) MG/DL 0.66-1.25 TOTAL PROTEIN (test code = PROT) G/DL 6.2-7.6 ALBUMIN (test code = ALB) 2.5 G/DL 3.5-5.0 L CALCIUM (test code = CA) MG/DL 8.7-9.7 BILIRUBIN TOTAL (test code = BILT) MG/DL 0.2-1.3 SGOT/AST (test code = AST) UNITS/L 15-37 SGPT/ALT (test code = ALT) UNITS/L <50 ALKALINE PHOSPHATASE (test code = UNITS/L 38-126 ALKP) [id number] 06:56:00 Test Item Value Reference Range Interpretation Comments MAGNESIUM (test code = MAG) MG/DL 1.6-2.3 COMPREHENSIVE METABOLIC [id number] 06:55:00 Test Item Value Reference Range Interpretation Comments SODIUM (test code = NA) MMOL/L 137-145 POTASSIUM (test code = K) MMOL/L 3.5-5.1 CHLORIDE (test code = CL) MMOL/L 98-107 CARBON DIOXIDE (test code = CO2) MMOL/L 22-30 GLUCOSE (test code = GLU) MG/DL 74-106 BLOOD UREA NITROGEN (test code = MG/DL 9-20 BUN) GLOMERULAR FILTRATION RATE (test code = GFR) CREATININE (test code = CREAT) MG/DL 0.66-1.25 TOTAL PROTEIN (test code = PROT) G/DL 6.2-7.6 ALBUMIN (test code = ALB) 2.5 G/DL 3.5-5.0 L CALCIUM (test code = CA) MG/DL 8.7-9.7 BILIRUBIN TOTAL (test code = BILT) MG/DL 0.2-1.3 SGOT/AST (test code = AST) UNITS/L 15-37 SGPT/ALT (test code = ALT) UNITS/L <50 ALKALINE PHOSPHATASE (test code = UNITS/L 38-126 ALKP) [id number] 06:55:00 Test Item Value Reference Range Interpretation Comments MAGNESIUM (test code = MAG) MG/DL 1.6-2.3 PROTHROMBIN [id number] 06:47:00 Test Item Value Reference Range Interpretation Comments PROTHROMBIN TIME 18.1 SECONDS 9.4-12.5 H PATIENT (test code = PTP) INTERNATIONAL NORMAL 1.6 The INR is to be RATIO (test code = used only for INR) monitoring oral anticoagulantth erap y. INDICATION I NR VALUE ---- ---- ---- -------1. Prophylaxis, de ep venous thrombos is, including high risk surgery. 2.0 - 3.0 2. Prophylaxis, deep venous thrombosis, hip surgery, treatm ent for deep venous thrombosis or pulmonary prevention of systemic emboli sm in patients wit h valvular heart disease, atrial fibrillation, tissue heart va lve, or acute myocar dial infarction. 2.0 - 3.0 3. Handstitching Machine Collar Feller al prosthesis hear t valves, recurre nt systemic emboli sm. 3.0 - 4.5 CBC W/AUTO [id number] 06:30:00 Test Item Value Reference Range Interpretation Comments WHITE BLOOD CELL (test code = 17.9 K/MM3 3.8-9.8 H WBC) RED BLOOD CELL (test code = 2.86 M/MM3 3.95-5.67 L RBC) HEMOGLOBIN (test code = HGB) 8.9 G/DL 12.4-16.7 L HEMATOCRIT (test code = HCT) 27.3 % 35.9-49.5 L MEAN CELL VOLUME (test code = 96 fL 81.7-96.1 N MCV) MEAN CELL HGB (test code = MCH) 31.1 pg 27.6-33.2 N MEAN CELL HGB CONCETRATION 32.6 % 32.9-35.5 L (test code = MCHC) RED CELL DISTRIBUTION WIDTH 14.5 % 12.1-15.2 N (test code = RDW) PLATELET COUNT (test code = 169 K/MM3 129-368 N PLT) MEAN PLATELET VOLUME (test code 10.2 fl 7.4-10.4 N = MPV) NEUTROPHIL % (test code = NT%) 81.9 % 43-75 H IMMATURE GRANULOCYTE % (test 1.2 % 0.0-2.0 N code = IG%) LYMPHOCYTE % (test code = LY%) 4.7 % 14-44 L MONOCYTE % (test code = MO%) 11.6 % 4-13 N EOSINOPHIL % (test code = EO%) 0.4 % 0-6 N BASOPHIL % (test code = BA%) 0.2 % 0-2 N NUCLEATED RBC % (test code = 0.3 % 0-1.0 N NRBC%) NEUTROPHIL # (test code = NT#) 14.66 K/mm3 2.0-7.6 H IMMATURE GRANULOCYTE # (test 0.21 x10 3/uL 0-0.03 H code = IG#) LYMPHOCYTE # (test code = LY#) 0.85 K/mm3 1.0-3.8 L MONOCYTE # (test code = MO#) 2.08 K/mm3 0.1-0.8 H EOSINOPHIL # (test code = EO#) 0.08 K/mm3 0.0-0.2 N BASOPHIL # (test code = BA#) 0.04 K/mm3 0.0-0.2 N NUCLEATED RBC # (test code = 0.06 K/mm3 0.0-0.1 N NRBC#) ARTERIAL BLOOD [id number] 17:46:00 Test Item Value Reference Range Interpretation Comments ARTERIAL BLOOD GAS PH (test code 7.33 mmHg 7.35-7.45 L = PHA) ARTERIAL BLOOD GAS PCO2 (test 38.9 mmHg 35.0-45.0 N code = PCO2A) ARTERIAL BLOOD GAS PO2 (test code 89.1 mmol/L 80.0-100.0 N = PO2A) BICARBONATE TOTAL HCO3 (test code 20.1 mmol/L 20.0-26.0 N = HCO3) BASE EXCESS (test code = MOON) -5.2 mmol/L -3.0-3.0 L ABG O2 SATURATION (test code = 96.3 % 95.0-100.0 N SATA) ABG DELIVERY (test code = SILAS) VENT ABG VENT MODE (test code = MODEA) A/C ABG VENT RESP RATE (test code = 18.0 /MIN RRA) ABG TIDAL VOLUME (test code = 400 ml TVA) ABG PEEP (test code = PEEPA) 5.0 cmH2O ABG TEMPERATURE (test code = 37.0 C >37 TEMPA) ABG SITE (test code = SITEA) AL ALLENS TEST (test code = ALLENS) NA CHECK FIO2 (test code = COHBGFFIO2) 70 % PaO2/[id number] 17:46:00 Test Item Value Reference Range Interpretation Comments PaO2/FiO2 (test code = [id number]) 127.28 mm/Hg PROTHROMBIN [id number] 11:22:00 Test Item Value Reference Range Interpretation Comments PROTHROMBIN TIME 16.9 SECONDS 9.4-12.5 H PATIENT (test code = PTP) INTERNATIONAL NORMAL 1.5 The INR is to be RATIO (test code = used only for INR) monitoring oral anticoagulantth erap y. INDICATION I NR VALUE ---- ---- ---- -------1. Prophylaxis, de ep venous thrombos is, including high risk surgery. 2.0 - 3.0 2. Prophylaxis, deep venous thrombosis, hip surgery, treatm ent for deep venous thrombosis or pulmonary prevention of systemic emboli sm in patients wit h valvular heart disease, atrial fibrillation, tissue heart va lve, or acute myocar dial infarction. 2. 0 - 3.0 3. Handstitching Machine Collar Feller al prosthesis hear t valves, recurre nt systemic emboli sm. 3.0 - 4.5 UNABLE TO DRAW BLOOD, REASON: HARDSTICKNOTIFIED PATIENT CARE STAFF: DOROTA WILLIAMSON 07/29/20 AT 0819 BY Nick BlackB-TYPE NATRIURETIC [id number] 09:15:00 Test Item Value Reference Range Interpretation Comments B-TYPE NATRIURETIC PEPTIDE (test 2135.0 PG/ML 0-100 H code = BNP) VANCOMYCIN [id number] 09:14:00 Test Item Value Reference Range Interpretation Comments VANCOMYCIN TROUGH (test 21.1 UG/ML 10.0-20.0 CALL ED TO [facility].H& code = VANCT) READBACK ON AT 0914 BY Isha Parnell COMPREHENSIVE METABOLIC [id number] 08:40:00 Test Item Value Reference Range Interpretation Comments SODIUM (test code = 131 MMOL/L 137-145 L NA) POTASSIUM (test code 3.2 MMOL/L 3.5-5.1 L = K) CHLORIDE (test code 94 MMOL/L 98-107 L = CL) CARBON DIOXIDE (test 30 MMOL/L 22-30 N code = CO2) ANION GAP (test code 10 MMOL/L 14-24 L = GAP) GLUCOSE (test code = 108 MG/DL 74-106 H GLU) BLOOD UREA NITROGEN 31 MG/DL 9-20 H (test code = BUN) GLOMERULAR > 60 Reporting units : FILTRATION RATE ml/min/1.73 m2 (test code = GFR) (Modified MDRD Formula)Referen ce Range: > or = 6 0 ml/min/1.73 m2 CREATININE (test 1.00 MG/DL 0.66-1.25 N code = CREAT) TOTAL PROTEIN (test 5.7 G/DL 6.2-7.6 L code = PROT) ALBUMIN (test code = 3.2 G/DL 3.5-5.0 L ALB) CALCIUM (test code = 8.0 MG/DL 8.4-10.2 L CA) BILIRUBIN TOTAL 1.1 MG/DL 0.2-1.3 N Eltrombopag (test code = BILT) Interfere nce for Vitros Product TBil, BuBc: ======= ======= ======A ssay Eltrombopa g Analyte/ Max Ob served Avg. Bias Concentration Concentration Concentration== ======= ======= ======= =======TBil 7mg /dl TBil/ 1.2mg/dl +0.23mg.dl +0.20mg/dlBuBc 3.5mg/dl Bu/0.8 mg/dl +0.25mg/dl +0.24mg/dlBuBc 7 mg/dl Bu/14.2mg/dl +0.38mg/dl +0.25mg/dlBuBc 5mg/dl Bc/0mg/dl +0.25 mg/dl +0.15mg/dlBuBc 3.5mg/dl Bc/2.8 mg/dl +0.25mg/dl +0.2 3mg/dl SGOT/AST (test code 173 UNITS/L 17-59 H = AST) SGPT/ALT (test code 533 UNITS/L <50 = ALT) ALKALINE PHOSPHATASE 97 UNITS/L 38-126 N (test code = ALKP) COMPREHENSIVE METABOLIC [id number] 08:39:00 Test Item Value Reference Range Interpretation Comments SODIUM (test code = NA) 131 MMOL/L 137-145 L POTASSIUM (test code = K) 3.2 MMOL/L 3.5-5.1 L CHLORIDE (test code = CL) 94 MMOL/L 98-107 L CARBON DIOXIDE (test code = CO2) MMOL/L 22-30 GLUCOSE (test code = GLU) MG/DL 74-106 BLOOD UREA NITROGEN (test code = MG/DL 9-20 BUN) GLOMERULAR FILTRATION RATE (test code = GFR) CREATININE (test code = CREAT) MG/DL 0.66-1.25 TOTAL PROTEIN (test code = PROT) 5.7 G/DL 6.2-7.6 L ALBUMIN (test code = ALB) 3.2 G/DL 3.5-5.0 L CALCIUM (test code = CA) MG/DL 8.7-9.7 BILIRUBIN TOTAL (test code = MG/DL 0.2-1.3 BILT) SGOT/AST (test code = AST) 173 UNITS/L 17-59 H SGPT/ALT (test code = ALT) UNITS/L <50 ALKALINE PHOSPHATASE (test code = UNITS/L 38-126 ALKP) COMPREHENSIVE METABOLIC [id number] 08:39:00 Test Item Value Reference Range Interpretation Comments SODIUM (test code = 131 MMOL/L 137-145 L NA) POTASSIUM (test code 3.2 MMOL/L 3.5-5.1 L = K) CHLORIDE (test code 94 MMOL/L 98-107 L = CL) CARBON DIOXIDE (test 30 MMOL/L 22-30 N code = CO2) ANION GAP (test code 10 MMOL/L 14-24 L = GAP) GLUCOSE (test code = MG/DL 74-106 GLU) BLOOD UREA NITROGEN MG/DL 9-20 (test code = BUN) GLOMERULAR > 60 Reporting units : FILTRATION RATE ml/min/1.73 m2 (test code = GFR) (Modified MDRD Formula)Referen ce Range: > or = 6 0 ml/min/1.73 m2 CREATININE (test 1.00 MG/DL 0.66-1.25 N code = CREAT) TOTAL PROTEIN (test 5.7 G/DL 6.2-7.6 L code = PROT) ALBUMIN (test code = 3.2 G/DL 3.5-5.0 L ALB) CALCIUM (test code = MG/DL 8.7-9.7 CA) BILIRUBIN TOTAL 1.1 MG/DL 0.2-1.3 N Eltrombopag (test code = BILT) Interfere nce for Vitros Product TBil, BuBc: ======= ======= ======A ssay Eltrombopa g Analyte/ Max Ob served Avg. Bias Concentration Concentration Concentration== ======= ======= ======= =======TBil 7mg /dl TBil/ 1.2mg/dl +0.23mg.dl +0.20mg/dlBuBc 3.5mg/dl Bu/0.8 mg/dl +0.25mg/dl +0.24mg/dlBuBc 7 mg/dl Bu/14.2mg/dl +0.38mg/dl +0.25mg/dlBuBc 5mg/dl Bc/0mg/dl +0.25 mg/dl +0.15mg/dlBuBc 3.5mg/dl Bc/2.8 mg/dl +0.25mg/dl +0.2 3mg/dl SGOT/AST (test code 173 UNITS/L 17-59 H = AST) SGPT/ALT (test code UNITS/L <50 = ALT) ALKALINE PHOSPHATASE UNITS/L 38-126 (test code = ALKP) COMPREHENSIVE METABOLIC [id number] 08:36:00 Test Item Value Reference Range Interpretation Comments SODIUM (test code = NA) MMOL/L 137-145 POTASSIUM (test code = K) MMOL/L 3.5-5.1 CHLORIDE (test code = CL) MMOL/L 98-107 CARBON DIOXIDE (test code = CO2) MMOL/L 22-30 GLUCOSE (test code = GLU) MG/DL 74-106 BLOOD UREA NITROGEN (test code = MG/DL 9-20 BUN) GLOMERULAR FILTRATION RATE (test code = GFR) CREATININE (test code = CREAT) MG/DL 0.66-1.25 TOTAL PROTEIN (test code = PROT) G/DL 6.2-7.6 ALBUMIN (test code = ALB) 3.2 G/DL 3.5-5.0 L CALCIUM (test code = CA) MG/DL 8.7-9.7 BILIRUBIN TOTAL (test code = BILT) MG/DL 0.2-1.3 SGOT/AST (test code = AST) UNITS/L 15-37 SGPT/ALT (test code = ALT) UNITS/L <50 ALKALINE PHOSPHATASE (test code = UNITS/L 38-126 ALKP) COMPREHENSIVE METABOLIC [id number] 08:36:00 Test Item Value Reference Range Interpretation Comments SODIUM (test code = NA) 131 MMOL/L 137-145 L POTASSIUM (test code = K) 3.2 MMOL/L 3.5-5.1 L CHLORIDE (test code = CL) 94 MMOL/L 98-107 L CARBON DIOXIDE (test code = CO2) MMOL/L 22-30 GLUCOSE (test code = GLU) MG/DL 74-106 BLOOD UREA NITROGEN (test code = MG/DL 9-20 BUN) GLOMERULAR FILTRATION RATE (test code = GFR) CREATININE (test code = CREAT) MG/DL 0.66-1.25 TOTAL PROTEIN (test code = PROT) G/DL 6.2-7.6 ALBUMIN (test code = ALB) 3.2 G/DL 3.5-5.0 L CALCIUM (test code = CA) MG/DL 8.7-9.7 BILIRUBIN TOTAL (test code = BILT) MG/DL 0.2-1.3 SGOT/AST (test code = AST) UNITS/L 15-37 SGPT/ALT (test code = ALT) UNITS/L <50 ALKALINE PHOSPHATASE (test code = UNITS/L 38-126 ALKP) CBC W/AUTO [id number] 08:29:00 Test Item Value Reference Range Interpretation Comments WHITE BLOOD CELL (test code = 23.1 K/MM3 3.8-9.8 H WBC) RED BLOOD CELL (test code = 3.36 M/MM3 3.95-5.67 L RBC) HEMOGLOBIN (test code = HGB) 10.4 G/DL 12.4-16.7 L HEMATOCRIT (test code = HCT) 33.0 % 35.9-49.5 L MEAN CELL VOLUME (test code = 98 fL 81.7-96.1 H MCV) MEAN CELL HGB (test code = MCH) 31.0 pg 27.6-33.2 N MEAN CELL HGB CONCETRATION 31.5 % 32.9-35.5 L (test code = MCHC) RED CELL DISTRIBUTION WIDTH 14.4 % 12.1-15.2 N (test code = RDW) PLATELET COUNT (test code = 151 K/MM3 129-368 PLT) MEAN PLATELET VOLUME (test code 10.2 fl 7.4-10.4 N = MPV) NEUTROPHIL % (test code = NT%) 84.1 % 43-75 H IMMATURE GRANULOCYTE % (test 1.5 % 0.0-2.0 N code = IG%) LYMPHOCYTE % (test code = LY%) 3.4 % 14-44 L MONOCYTE % (test code = MO%) 10.6 % 4-13 N EOSINOPHIL % (test code = EO%) 0.1 % 0-6 N BASOPHIL % (test code = BA%) 0.3 % 0-2 N NUCLEATED RBC % (test code = 0.3 % 0-1.0 N NRBC%) NEUTROPHIL # (test code = NT#) 19.43 K/mm3 2.0-7.6 H IMMATURE GRANULOCYTE # (test 0.35 x10 3/uL 0-0.03 H code = IG#) LYMPHOCYTE # (test code = LY#) 0.78 K/mm3 1.0-3.8 L MONOCYTE # (test code = MO#) 2.46 K/mm3 0.1-0.8 H EOSINOPHIL # (test code = EO#) 0.03 K/mm3 0.0-0.2 N BASOPHIL # (test code = BA#) 0.06 K/mm3 0.0-0.2 N NUCLEATED RBC # (test code = 0.07 K/mm3 0.0-0.1 N NRBC#) - CHEST [id number] 07:31:00 [facility] : 1950 Sex: M Patient Name: ALEXIS GAUTHIER Unit No: [id number] EXAMS: CPT CODE: [id number] XR CHEST 1V [id number] FOR EXAM: Pulmonary contusion COMPARISON: 07/27/2020 Chest, portable single frontal view. Stable positioning of mediastinal drain versus left basilar chest tube. Stable appearance of the lung richards with with diffuse lung haziness, suggestive of pulmonary edema, less likely diffuse pneumonia. H eart size upper normal as before. Trace Bilateral effusions are seen. No pneumothorax. Osseous structures appear to be intact. IMPRESSION: Stable chest/no significant interval change in mild diffuse lung haziness likely pulmonary edema, less likely diffuse pneumonia with trace bilateral effusions. Location: [facility] at 0731 Reported and signed by: Dena Mcfarlane MD CC: Lan Ledebtter MD; Ryan Lambert Technologist: Mayo Overton, RT(R) Transcrpt Date/Tm/Trnsp: 07/28/2020 (0731) [email or web address] Orig Print D/T: S: (0734) [facility] NAME: ALEXIS GAUTHIER [id number] PHYS: [place] [address] : 1950 AGE: 70 SEX: M LOC: [id number] A PHONE #: [phone] EXAM DATE: 07/28/2020 STATUS: ADM IN FAX #: [phone] RADIOLOGY NO: PAGE 1 Signed Report COMPREHENSIVE METABOLIC [id number] 06:15:00 Test Item Value Reference Range Interpretation Comments SODIUM (test code = 131 MMOL/L 137-145 L NA) POTASSIUM (test code 3.7 MMOL/L 3.5-5.1 N = K) CHLORIDE (test code 94 MMOL/L 98-107 L = CL) CARBON DIOXIDE (test 31 MMOL/L 22-30 H code = CO2) ANION GAP (test code 10 MMOL/L 14-24 L = GAP) GLUCOSE (test code = 102 MG/DL 74-106 N GLU) BLOOD UREA NITROGEN 34 MG/DL 9-20 H (test code = BUN) GLOMERULAR > 60 Reporting units : FILTRATION RATE ml/min/1.73 m2 (test code = GFR) (Modified MDRD Formula)Referen ce Range: > or = 6 0 ml/min/1.73 m2 CREATININE (test 0.90 MG/DL 0.66-1.25 N code = CREAT) TOTAL PROTEIN (test 5.0 G/DL 6.2-7.6 L code = PROT) ALBUMIN (test code = 2.7 G/DL 3.5-5.0 L ALB) CALCIUM (test code = 7.6 MG/DL 8.4-10.2 L CA) BILIRUBIN TOTAL 1.1 MG/DL 0.2-1.3 N Eltrombopag (test code = BILT) Interfere nce for Vitros Product TBil, BuBc: ======= ======= ======A ssay Eltrombopa g Analyte/ Max Ob served Avg. Bias Concentration Concentration Concentration== ======= ======= ======= =======TBil 7mg /dl TBil/ 1.2mg/dl +0.23mg.dl +0.20mg/dlBuBc 3.5mg/dl Bu/0.8 mg/dl +0.25mg/dl +0.24mg/dlBuBc 7 mg/dl Bu/14.2mg/dl +0.38mg/dl +0.25mg/dlBuBc 5mg/dl Bc/0mg/dl +0.25 mg/dl +0.15mg/dlBuBc 3.5mg/dl Bc/2.8 mg/dl +0.25mg/dl +0.2 3mg/dl SGOT/AST (test code 241 UNITS/L 17-59 H = AST) SGPT/ALT (test code 585 UNITS/L <50 = ALT) ALKALINE PHOSPHATASE 71 UNITS/L 38-126 (test code = ALKP) COMPREHENSIVE METABOLIC [id number] 06:03:00 Test Item Value Reference Range Interpretation Comments SODIUM (test code = NA) MMOL/L 137-145 POTASSIUM (test code = K) MMOL/L 3.5-5.1 CHLORIDE (test code = CL) 94 MMOL/L 98-107 L CARBON DIOXIDE (test code = CO2) MMOL/L 22-30 GLUCOSE (test code = GLU) MG/DL 74-106 BLOOD UREA NITROGEN (test code = MG/DL 9-20 BUN) GLOMERULAR FILTRATION RATE (test code = GFR) CREATININE (test code = CREAT) MG/DL 0.66-1.25 TOTAL PROTEIN (test code = PROT) G/DL 6.2-7.6 ALBUMIN (test code = ALB) 2.7 G/DL 3.5-5.0 L CALCIUM (test code = CA) MG/DL 8.7-9.7 BILIRUBIN TOTAL (test code = BILT) MG/DL 0.2-1.3 SGOT/AST (test code = AST) UNITS/L 15-37 SGPT/ALT (test code = ALT) UNITS/L <50 ALKALINE PHOSPHATASE (test code = UNITS/L 38-126 ALKP) PROTHROMBIN [id number] 05:51:00 Test Item Value Reference Range Interpretation Comments PROTHROMBIN TIME 17.1 SECONDS 9.4-12.5 H PATIENT (test code = PTP) INTERNATIONAL NORMAL 1.5 The INR is to be RATIO (test code = used only for INR) monitoring oral anticoagulantth erap y. INDICATION I NR VALUE ---- ---- ---- -------1. Prophylaxis, de ep venous thrombos is, including high risk surgery. 2.0 - 3.0 2. Prophylaxis, deep venous thrombosis, hip surgery, treatm ent for deep venous thrombosis or pulmonary prevention of systemic emboli sm in patients wit h valvular heart disease, atrial fibrillation, tissue heart va lve, or acute myocar dial infarction. 2.0 - 3.0 3. Handstitching Machine Collar Feller al prosthesis hear t valves, recurre nt systemic emboli sm. 3.0 - 4.5 CBC W/AUTO [id number] 05:31:00 Test Item Value Reference Range Interpretation Comments WHITE BLOOD CELL (test code = 20.7 K/MM3 3.8-9.8 H WBC) RED BLOOD CELL (test code = 3.26 M/MM3 3.95-5.67 L RBC) HEMOGLOBIN (test code = HGB) 10.2 G/DL 12.4-16.7 L HEMATOCRIT (test code = HCT) 31.1 % 35.9-49.5 L MEAN CELL VOLUME (test code = 95 fL 81.7-96.1 N MCV) MEAN CELL HGB (test code = MCH) 31.3 pg 27.6-33.2 N MEAN CELL HGB CONCETRATION 32.8 % 32.9-35.5 L (test code = MCHC) RED CELL DISTRIBUTION WIDTH 14.5 % 12.1-15.2 N (test code = RDW) PLATELET COUNT (test code = 113 K/MM3 129-368 L PLT) MEAN PLATELET VOLUME (test code 10.9 fl 7.4-10.4 H = MPV) NEUTROPHIL % (test code = NT%) 84.8 % 43-75 H IMMATURE GRANULOCYTE % (test 1.4 % 0.0-2.0 N code = IG%) LYMPHOCYTE % (test code = LY%) 4.4 % 14-44 L MONOCYTE % (test code = MO%) 9.3 % 4-13 N EOSINOPHIL % (test code = EO%) 0.0 % 0-6 N BASOPHIL % (test code = BA%) 0.1 % 0-2 N NUCLEATED RBC % (test code = 0.2 % 0-1.0 N NRBC%) NEUTROPHIL # (test code = NT#) 17.59 K/mm3 2.0-7.6 H IMMATURE GRANULOCYTE # (test 0.28 x10 3/uL 0-0.03 H code = IG#) LYMPHOCYTE # (test code = LY#) 0.91 K/mm3 1.0-3.8 L MONOCYTE # (test code = MO#) 1.92 K/mm3 0.1-0.8 H EOSINOPHIL # (test code = EO#) 0.01 K/mm3 0.0-0.2 N BASOPHIL # (test code = BA#) 0.03 K/mm3 0.0-0.2 N NUCLEATED RBC # (test code = 0.04 K/mm3 0.0-0.1 N NRBC#) VANCOMYCIN [id number] 20:28:00 Test Item Value Reference Range Interpretation Comments VANCOMYCIN TROUGH (test code = 8.3 UG/ML 10.0-20.0 L VANCT) [id number] 15:05:00 Test Item Value Reference Range Interpretation Comments TROPONIN-I (test 2.480 NG/ML 0.012-0.033 CALLED TO Jaylan ROCHA& code = TROPI) READBACK ON AT 1505 BY Travis Amado UNABLE TO DRAW BLOOD, REASON: CBNNOTIFIED PATIENT CARE STAFF: STEPHIE JEAN 07/27/20 AT 1156 BY Marino [id number] 10:00:00 Test Item Value Reference Range Interpretation Comments TROPONIN-I (test 2.840 NG/ML 0.012-0.033 HH CALLED TO Jaylan ROCHA& code = TROPI) READBACK ON AT 1000 BY Travis Amado LIPOPROTEIN LDL [id number] 07:46:00 Test Item Value Reference Range Interpretation Comments LIPOPROTEIN LDL DIRECT 34 mg/dL 100-129 L ===== (test code = LDLDIR) ======= ==Refe rence Interval: mg/dL mmol/L--------- ------ ------ ------ --Optimal <100 <2.6Near/above optimal 100-129 2.6-3.3Borderli ne High 130-159 3.4-4.1High 160 -189 4.1-4.9Very Hig h >=190 >=4.9==== ===== This LDL result is a direct measurement.=== ====== CPK-MB [id number] 07:46:00 Test Item Value Reference Range Interpretation Comments CREATINE KINASE (CK) (test code = 202 UNITS/L 55-170 H CK) CKMB (test code = CKMBT) 6.63 NG/ML 0.0-5.6 H CKMB INDEX (test code = CKMBI) 3.3 % 4.0-4.4 L [id number] 07:46:00 Test Item Value Reference Range Interpretation Comments TROPONIN-I (test 2.850 NG/ML 0.012-0.033 HH CALLED TO Jaylan ROCHA& code = TROPI) READBACK ON AT 0716 BY Travis Amado - US ABDOMEN [id number] 07:41:00 [facility] 1950 Sex: M Patient Name: ALEXIS GAUTHIER Unit No: [id number] EXAMS: CPT CODE: [id number] US ABDOMEN LTD 02822 EXAMINATION: - US ABDOMEN [facility]. LOCATION: [facility]. HISTORY: Elevated LFT. COMPARISON: None. TECHNIQUE:Multiple grayscale, pulse Doppler and color Doppler images of the right upper quadrant of the abdomen were obtained. FINDINGS: Examination is limited due to overlying bandage. The visualized liver pare nchyma is homogeneous in echogenicity. The main portal vein is patent. Small to moderate right pleural effusion. Trace right upper quadrant free fluid. There is no intra or extrahepatic biliary ductal dilatation. The common duct measures 3 mm. The gallbladder is without calculi or wall thickening. Nonvisualization of pancreas due to overlying bowel gas. The right kidney measures 9.6 cm. There is no hydronephrosis. The visualized portions of abdominal aorta and IVC appear unremarkable. IMPRESSION: Limited study. No cholelithiasis. Small to moderate right pleural effusion. Trace right upper quadrantfree fluid. at 0741 Reported and signedby: Otilio Gallegos CC: Lan Ledbetter MD; Oniel Martin MD; Ryan Lambert Technologist: Jessica Dailey RDMS(OB)(AB) Transcrpt Date/Tm/Trnsp: 07/27/2020 (0741) t.[email or web address] Orig Print D/T: S: 07/27/2020 (0744) [facility] NAME: ALEXIS GAUTHIER [id number] PHYS: [place] [address] : 1950 AGE: 70 SEX: M LOC: Z.SI12 A PHONE #: [phone] EXAM DATE: 07/26/2020 STATUS: ADM IN FAX #: [phone] RADIOLOGY NO: PAGE 1 Signed ReportLIPOPROTEIN LDL [id number] 07:16:00 Test Item Value Reference Range Interpretation Comments LIPOPROTEIN LDL DIRECT (test code = mg/dL 100-129 LDLDIR) CPK-MB [id number] 07:16:00 Test Item Value Reference Range Interpretation Comments CREATINE KINASE (CK) (test code = 202 UNITS/L 55-170 H CK) CKMB (test code = CKMBT) 6.63 NG/ML 0.0-5.6 H CKMB INDEX (test code = CKMBI) 3.3 % 4.0-4.4 L [id number] 07:16:00 Test Item Value Reference Range Interpretation Comments TROPONIN-I (test 2.850 NG/ML 0.012-0.033 HH CALLED TO Jaylan ROCHA& code = TROPI) READBACK ON AT 0716 BY Travis Amado COMPREHENSIVE METABOLIC [id number] 07:00:00 Test Item Value Reference Range Interpretation Comments SODIUM (test code = 131 MMOL/L 137-145 L NA) POTASSIUM (test code 4.3 MMOL/L 3.5-5.1 N = K) CHLORIDE (test code 97 MMOL/L 98-107 L = CL) CARBON DIOXIDE (test 31 MMOL/L 22-30 H code = CO2) ANION GAP (test code 7 MMOL/L 14-24 L = GAP) GLUCOSE (test code = 108 MG/DL 74-106 H GLU) BLOOD UREA NITROGEN 35 MG/DL 9-20 H (test code = BUN) GLOMERULAR > 60 Reporting units : FILTRATION RATE ml/min/1.73 m2 (test code = GFR) (Modified MDRD Formula)Referen ce Range: > or = 6 0 ml/min/1.73 m2 CREATININE (test 0.90 MG/DL 0.66-1.25 N code = CREAT) TOTAL PROTEIN (test 4.9 G/DL 6.2-7.6 L code = PROT) ALBUMIN (test code = 2.5 G/DL 3.5-5.0 L ALB) CALCIUM (test code = 7.7 MG/DL 8.4-10.2 L CA) BILIRUBIN TOTAL 1.0 MG/DL 0.2-1.3 Eltrombopag (test code = BILT) Interfere nce for Vitros Product TBil, BuBc: ======= ======= ======A ssay Eltrombopa g Analyte/ Max Ob served Avg. Bias Concentration Concentration Concentration== ======= ======= ======= =======TBil 7mg /dl TBil/ 1.2mg/dl +0.23mg.dl +0.20mg/dlBuBc 3.5mg/dl Bu/0.8 mg/dl +0.25mg/dl +0.24mg/dlBuBc 7 mg/dl Bu/14.2mg/dl +0.38mg/dl +0.25mg/dlBuBc 5mg/dl Bc/0mg/dl +0.25 mg/dl +0.15mg/dlBuBc 3.5mg/dl Bc/2.8 mg/dl +0.25mg/dl +0.2 3mg/dl SGOT/AST (test code 373 UNITS/L 17-59 H = AST) SGPT/ALT (test code 673 UNITS/L <50 = ALT) ALKALINE PHOSPHATASE 43 UNITS/L 38-126 N (test code = ALKP) [id number] 07:00:00 Test Item Value Reference Range Interpretation Comments PHOSPHOROUS (test code = PHOS) 2.5 MG/DL 2.5-4.5 N [id number] 07:00:00 Test Item Value Reference Range Interpretation Comments MAGNESIUM (test code = MAG) 2.2 MG/DL 1.6-2.3 N - XR CHEST [id number] 06:55:00 [facility] : 1950 Sex: M Patient Name: ALEXIS GAUTHIER Unit No: [id number] EXAMS: CPT CODE: [id number] XR CHEST 1V 25057 REASON FOR EXAM: Postop thoracotomy. COMPARISON July 26, 2020. Chest, portable single frontal view. A mediastinal drain may be in place. The gas distended stomach has been decompressed. The lungs are better inflated with diffuse lung haziness that may support pulmonary edema, less likely diffuse p neumonia. Heart size upper normal. Bilateral effusions are seen. No pneumothorax can be seen. Osseous structures appear to be intact. IMPRESSION: Much better inflated lungs now with diffuse lung haziness likely pulmonary edema, less likely diffuse pneumonia. Bilateral effusions are likely. Mediastinaldrain in place. Decompressed stomach. Location: [facility] at 0655 Reported and signed by: ANGEL GOMEZ M.D. CC: Lan Ledbetter MD; Laura WINKLER; Ryan Lambert Technologist: Mayo Overton, (R) Transcrpt Date/Tm/Trnsp: 07/27/2020 (0655) [email or web address] Orig Print D/T: S: 07/27/2020 (0658) [facility] NAME: BRIGIDO GAUTHIER [id number] PHYS: [place] [address] : 1950 AGE: 70 SEX: M LOC: Z.SI12 A PHONE #: [phone] EXAM DATE: 07/27/2020 STATUS: ADM IN FAX #: [phone] RADIOLOGY NO: PAGE 1 Signed ReportCPK-MB [id number] 06:47:00 Test Item Value Reference Range Interpretation Comments CREATINE KINASE (CK) (test code = 202 UNITS/L 55-170 H CK) CKMB (test code = CKMBT) 6.63 NG/ML 0.0-5.6 H CKMB INDEX (test code = CKMBI) 3.3 % 4.0-4.4 L [id number] 06:47:00 Test Item Value Reference Range Interpretation Comments TROPONIN-I (test code = TROPI) NG/ML 0.0-0.045 CPK-MB [id number] 06:38:00 Test Item Value Reference Range Interpretation Comments CREATINE KINASE (CK) (test code = 202 UNITS/L 55-170 H CK) CKMB (test code = CKMBT) NG/ML 0.0-5.6 CKMB INDEX (test code = CKMBI) % 4.0-4.4 [id number] 06:38:00 Test Item Value Reference Range Interpretation Comments TROPONIN-I (test code = TROPI) NG/ML 0.0-0.045 COMPREHENSIVE METABOLIC [id number] 06:37:00 Test Item Value Reference Range Interpretation Comments SODIUM (test code = NA) 131 MMOL/L 137-145 L POTASSIUM (test code = K) 4.3 MMOL/L 3.5-5.1 N CHLORIDE (test code = CL) 97 MMOL/L 98-107 L CARBON DIOXIDE (test code = CO2) MMOL/L 22-30 GLUCOSE (test code = GLU) MG/DL 74-106 BLOOD UREA NITROGEN (test code = MG/DL 9-20 BUN) GLOMERULAR FILTRATION RATE (test code = GFR) CREATININE (test code = CREAT) MG/DL 0.66-1.25 TOTAL PROTEIN (test code = PROT) G/DL 6.2-7.6 ALBUMIN (test code = ALB) 2.5 G/DL 3.5-5.0 L CALCIUM (test code = CA) MG/DL 8.7-9.7 BILIRUBIN TOTAL (test code = BILT) MG/DL 0.2-1.3 SGOT/AST (test code = AST) UNITS/L 15-37 SGPT/ALT (test code = ALT) UNITS/L <50 ALKALINE PHOSPHATASE (test code = UNITS/L 38-126 ALKP) [id number] 06:37:00 Test Item Value Reference Range Interpretation Comments PHOSPHOROUS (test code = PHOS) MG/DL 2.5-4.5 [id number] 06:37:00 Test Item Value Reference Range Interpretation Comments MAGNESIUM (test code = MAG) MG/DL 1.6-2.3 COMPREHENSIVE METABOLIC [id number] 06:36:00 Test Item Value Reference Range Interpretation Comments SODIUM (test code = NA) MMOL/L 137-145 POTASSIUM (test code = K) MMOL/L 3.5-5.1 CHLORIDE (test code = CL) 97 MMOL/L 98-107 L CARBON DIOXIDE (test code = CO2) MMOL/L 22-30 GLUCOSE (test code = GLU) MG/DL 74-106 BLOOD UREA NITROGEN (test code = MG/DL 9-20 BUN) GLOMERULAR FILTRATION RATE (test code = GFR) CREATININE (test code = CREAT) MG/DL 0.66-1.25 TOTAL PROTEIN (test code = PROT) G/DL 6.2-7.6 ALBUMIN (test code = ALB) 2.5 G/DL 3.5-5.0 L CALCIUM (test code = CA) MG/DL 8.7-9.7 BILIRUBIN TOTAL (test code = BILT) MG/DL 0.2-1.3 SGOT/AST (test code = AST) UNITS/L 15-37 SGPT/ALT (test code = ALT) UNITS/L <50 ALKALINE PHOSPHATASE (test code = UNITS/L 38-126 ALKP) [id number] 06:36:00 Test Item Value Reference Range Interpretation Comments PHOSPHOROUS (test code = PHOS) MG/DL 2.5-4.5 [id number] 06:36:00 Test Item Value Reference Range Interpretation Comments MAGNESIUM (test code = MAG) MG/DL 1.6-2.3 PROTHROMBIN [id number] 06:31:00 Test Item Value Reference Range Interpretation Comments PROTHROMBIN TIME 18.5 SECONDS 9.4-12.5 H PATIENT (test code = PTP) INTERNATIONAL NORMAL 1.7 The INR is to be RATIO (test code = used only for INR) monitoring oral anticoagulantth erap y. INDICATION I NR VALUE ---- ---- ---- -------1. Prophylaxis, de ep venous thrombos is, including high risk surgery. 2.0 - 3.0 2. Prophylaxis, deep venous thrombosis, hip surgery, treatm ent for deep venous thrombosis or pulmonary prevention of systemic emboli sm in patients wit h valvular heart disease, atrial fibrillation, tissue heart va lve, or acute myocar dial infarction. 2.0 - 3.0 3. Handstitching Machine Collar Feller al prosthesis hear t valves, recurre nt systemic emboli sm. 3.0 - 4.5 PTT [id number] 06:31:00 Test Item Value Reference Range Interpretation Comments PTT ACTIVATED (test code = APTT) 21.0 SECONDS 25.1-36.5 L CBC W/AUTO [id number] 06:16:00 Test Item Value Reference Range Interpretation Comments WHITE BLOOD CELL (test code = 19.9 K/MM3 3.8-9.8 H WBC) RED BLOOD CELL (test code = 2.62 M/MM3 3.95-5.67 L RBC) HEMOGLOBIN (test code = HGB) 8.3 G/DL 12.4-16.7 L HEMATOCRIT (test code = HCT) 24.7 % 35.9-49.5 L MEAN CELL VOLUME (test code = 94 fL 81.7-96.1 N MCV) MEAN CELL HGB (test code = MCH) 31.7 pg 27.6-33.2 N MEAN CELL HGB CONCETRATION 33.6 % 32.9-35.5 N (test code = MCHC) RED CELL DISTRIBUTION WIDTH 15.1 % 12.1-15.2 N (test code = RDW) PLATELET COUNT (test code = 126 K/MM3 129-368 L PLT) MEAN PLATELET VOLUME (test code 10.6 fl 7.4-10.4 H = MPV) NEUTROPHIL % (test code = NT%) 84.1 % 43-75 H IMMATURE GRANULOCYTE % (test 1.5 % 0.0-2.0 N code = IG%) LYMPHOCYTE % (test code = LY%) 5.1 % 14-44 L MONOCYTE % (test code = MO%) 9.2 % 4-13 N EOSINOPHIL % (test code = EO%) 0.0 % 0-6 N BASOPHIL % (test code = BA%) 0.1 % 0-2 N NUCLEATED RBC % (test code = 0.1 % 0-1.0 N NRBC%) NEUTROPHIL # (test code = NT#) 16.70 K/mm3 2.0-7.6 H IMMATURE GRANULOCYTE # (test 0.29 x10 3/uL 0-0.03 H code = IG#) LYMPHOCYTE # (test code = LY#) 1.01 K/mm3 1.0-3.8 N MONOCYTE # (test code = MO#) 1.83 K/mm3 0.1-0.8 H EOSINOPHIL # (test code = EO#) 0.00 K/mm3 0.0-0.2 N BASOPHIL # (test code = BA#) 0.02 K/mm3 0.0-0.2 N NUCLEATED RBC # (test code = 0.02 K/mm3 0.0-0.1 N NRBC#) ARTERIAL BLOOD [id number] 05:53:00 Test Item Value Reference Range Interpretation Comments ARTERIAL BLOOD GAS PH 7.49 mmHg 7.35-7.45 H (test code = PHA) ARTERIAL BLOOD GAS PCO2 36.8 mmHg 35.0-45.0 N (test code = PCO2A) ARTERIAL BLOOD GAS PO2 73.5 mmol/L 80.0-100.0 L (test code = PO2A) BICARBONATE TOTAL HCO3 27.5 mmol/L 20.0-26.0 H (test code = HCO3) BASE EXCESS (test code 4.3 mmol/L -3.0-3.0 H = MOON) ABG O2 SATURATION (test 95.9 % 95.0-100.0 N All critical values code = SATA) report to and readback by DR. HAM by JUAN at 07/27/2020 5:48 :33 AM ABG L/M (test code = 1 L/MIN L/M) ABG DELIVERY (test code N/C = SILAS) ABG TEMPERATURE (test 37.0 C >37 code = TEMPA) ABG SITE (test code = AL SITEA) ALLENS TEST (test code Y CHECK = ALLENS) FIO2 (test code = 24 % COHBGFFIO2) PaO2/[id number] 05:53:00 Test Item Value Reference Range Interpretation Comments PaO2/FiO2 (test code = [id number]) 306.25 mm/Hg ARTERIAL BLOOD [id number] 05:52:00 Test Item Value Reference Range Interpretation Comments ARTERIAL BLOOD GAS PH 7.49 mmHg 7.35-7.45 H (test code = PHA) ARTERIAL BLOOD GAS PCO2 36.8 mmHg 35.0-45.0 N (test code = PCO2A) ARTERIAL BLOOD GAS PO2 73.5 mmol/L 80.0-100.0 L (test code = PO2A) BICARBONATE TOTAL HCO3 27.5 mmol/L 20.0-26.0 H (test code = HCO3) BASE EXCESS (test code 4.3 mmol/L -3.0-3.0 H = MOON) ABG O2 SATURATION (test 95.9 % 95.0-100.0 N All critical values code = SATA) report to and readback by DR. HAM by JUAN at 07/27/2020 5:48 :33 AM ABG L/M (test code = 1 L/MIN L/M) ABG DELIVERY (test code N/C = SILAS) ABG TEMPERATURE (test 37.0 C >37 code = TEMPA) ABG SITE (test code = AL SITEA) ALLENS TEST (test code Y CHECK = ALLENS) FIO2 (test code = 24 % COHBGFFIO2) PaO2/[id number] 05:52:00 Test Item Value Reference Range Interpretation Comments PaO2/FiO2 (test code = [id number]) mm/Hg LACTIC [id number] 01:30:00 Test Item Value Reference Range Interpretation Comments LACTIC ACID (test code = LACT) 1.4 MMOL/L 0.7-2.1 N LACTIC [id number] 22:41:00 Test Item Value Reference Range Interpretation Comments LACTIC ACID (test code = LACT) 3.1 MMOL/L 0.7-2.1 H UNABLE TO DRAW BLOOD, REASON: CNBNOTIFIED PATIENT CARE STAFF: [facility] 07/26/20 AT 1828 BY Dilan Trammell TO DRAW BLOOD, REASON: CBNNOTIFIED PATIENT CARE STAFF: [facility] 07/26/20 AT 1108 BY Yara Masters ELACTIC [id number] 17:14:00 Test Item Value Reference Range Interpretation Comments LACTIC ACID (test code = LACT) 2.8 MMOL/L 0.7-2.1 H UNABLE TO DRAW BLOOD, REASON: CNBNOTIFIED PATIENT CARE STAFF: [facility] 07/26/20 AT 1459 BY Kendra Trammell- XR ABDOMEN 1 [id number] 16:25:00 [facility] : 1950 Sex: M Patient Name: ALEXIS GAUTHIER Unit No: [id number] EXAMS: CPT CODE: [id number] XR ABDOMEN 1 V 21181 B2 - XR ABDOMEN 1 V HISTORY: NG TUBE PLACEMENT COMPARISON: 07/26/2020 at 1351 FINDINGS: Interval placement of a nasogastric tube with its tip projected below the diaphragm. Pericardial drain in unchanged position. Marked gaseous distention of the stomach. No air-filled dilated loops of bowel are present. Moderate retained stool in the colon. There is no organomegaly. No abnormal abdominal masses or calcifications. No acute osseous abnormalities. IMPRESSION: 1. Nasogastric tube in place. 2. Gaseous distention of the stomach is again noted. 3. Moderate retained stool in the colon. Correlate for con stipation. at 1625 Reported and signed by: Shahzad Sharp MD CC: Lan Ledbetter MD; Ryan Lambert Technologist: EVERARDO Davis, RT(R)Transcrpt Date/Tm/Trnsp: 07/26/2020 (1625) [email or web address] Orig Print D/T: S: 07/26/2020 (7703) [facility] NAME: ALEXIS GAUTHIER [id number] PHYS: [place] [address] : 1950 AGE: 70 SEX: M LOC: Z.SI12 A PHONE #: [phone] EXAM DATE: 07/26/2020 STATUS: ADM IN FAX #: [phone] RADIOLOGY NO: PAGE 1 Signed ReportGLUCOSE BEDSIDE [id number] 16:23:00 Test Item Value Reference Range Interpretation Comments GLUCOSE BEDSIDE TESTING (test code 133 MG/DL 60-99 H = GLUBED) - XR ABD ACUTE [id number] 15:32:00 [facility] : 1950 Sex: M Patient Name: ALEXIS GAUTHIER Unit No: [id number] EXAMS: CPT CODE: [id number] XR ABD ACUTE W/CHEST 72404 B2 - XR ABD ACUTE W/CHEST HISTORY: Abdominal distention, constipation COMPARISON: [facility] 07/26/2020 FINDINGS: Pericardial drain is again noted. Bilateral patchy airspace opacities. Small left pleural effusion. No pneumothorax. The cardiac silhouette is within normal limits. Marked gaseous distention of the stomach. No air-filled dilated loops of bowel are present. There is no organomegaly. No abnormal abdominal masses or calcifications. No acute osseous abnormalities. IMPRESSION: 1. Pulmonary edema with small left pleural effusion. 2. Marked gaseous distention of the stomach. 3. Otherwise, nonspecific bowel gas pattern. [id number] Reported and signed by: Shahzad Sharp MD CC: Lan Ledbetter MD; Ryan Lambert Technologist: Alexis Frausto, RT(R) Transcrpt Date/Tm/Trnsp: 07/26/2020 (153) King.VB7 Orig Print D/T: S: (1535) [facility] NAME: ALEXIS GAUTHIER [id number] PHYS: [place] [address] : 1950 AGE: 70 SEX: M LOC: Z.SI12 A PHONE #: [phone] EXAM DATE: 07/26/2020 STATUS: ADM IN FAX #: [phone] RADIOLOGY NO: PAGE 1 Signed ReportLACTIC ACID 2020-07-26 12:34:00 Test Item Value Reference Range Interpretation Comments LACTIC ACID (test code = LACT) 2.6 MMOL/L 0.7-2.1 H LACTIC [id number] 08:42:00 Test Item Value Reference Range Interpretation Comments LACTIC ACID (test code = LACT) 2.1 MMOL/L 0.7-2.1 N B-TYPE NATRIURETIC [id number] 06:54:00 Test Item Value Reference Range Interpretation Comments B-TYPE NATRIURETIC PEPTIDE (test 589.0 PG/ML 0-100 H code = BNP) COMPREHENSIVE METABOLIC [id number] 06:50:00 Test Item Value Reference Range Interpretation Comments SODIUM (test code = 135 MMOL/L 137-145 L NA) POTASSIUM (test code 4.2 MMOL/L 3.5-5.1 N = K) CHLORIDE (test code 102 MMOL/L 98-107 N = CL) CARBON DIOXIDE (test 30 MMOL/L 22-30 N code = CO2) ANION GAP (test code 7 MMOL/L 14-24 L = GAP) GLUCOSE (test code = 125 MG/DL 74-106 H GLU) BLOOD UREA NITROGEN 27 MG/DL 9-20 H (test code = BUN) GLOMERULAR > 60 Reporting units : FILTRATION RATE ml/min/1.73 m2 (test code = GFR) (Modified MDRD Formula)Referen ce Range: > or = 6 0 ml/min/1.73 m2 CREATININE (test 1.00 MG/DL 0.66-1.25 N code = CREAT) TOTAL PROTEIN (test 4.7 G/DL 6.2-7.6 L code = PROT) ALBUMIN (test code = 2.7 G/DL 3.5-5.0 L ALB) CALCIUM (test code = 7.7 MG/DL 8.4-10.2 L CA) BILIRUBIN TOTAL 0.7 MG/DL 0.2-1.3 N Eltrombopag (test code = BILT) Interfere nce for Vitros Product TBil, BuBc: ======= ======= ======A ssay Eltrombopa g Analyte/ Max Ob served Avg. Bias Concentration Concentration Concentration== ======= ======= ======= =======TBil 7mg /dl TBil/ 1.2mg/dl +0.23mg.dl +0.20mg/dlBuBc 3.5mg/dl Bu/0.8 mg/dl +0.25mg/dl +0.24mg/dlBuBc 7 mg/dl Bu/14.2mg/dl +0.38mg/dl +0.25mg/dlBuBc 5mg/dl Bc/0mg/dl +0.25 mg/dl +0.15mg/dlBuBc 3.5mg/dl Bc/2.8 mg/dl +0.25mg/dl +0.2 3mg/dl SGOT/AST (test code 461 UNITS/L 17-59 H = AST) SGPT/ALT (test code 642 UNITS/L <50 = ALT) ALKALINE PHOSPHATASE 43 UNITS/L 38-126 N (test code = ALKP) [id number] 06:50:00 Test Item Value Reference Range Interpretation Comments MAGNESIUM (test code = MAG) 2.2 MG/DL 1.6-2.3 N PROTHROMBIN [id number] 06:30:00 Test Item Value Reference Range Interpretation Comments PROTHROMBIN TIME 21.2 SECONDS 9.4-12.5 H PATIENT (test code = PTP) INTERNATIONAL NORMAL 1.9 The INR is to be RATIO (test code = used only for INR) monitoring oral anticoagulantth erap y. INDICATION I NR VALUE ---- ---- ---- -------1. Prophylaxis, de ep venous thrombos is, including high risk surgery. 2.0 - 3.0 2. Prophylaxis, deep venous thrombosis, hip surgery, treatm ent for deep venous thrombosis or pulmonary prevention of systemic emboli sm in patients wit h valvular heart disease, atrial fibrillation, tissue heart va lve, or acute myocar dial infarction. 2.0 - 3.0 3. Handstitching Machine Collar Feller al prosthesis hear t valves, recurre nt systemic emboli sm. 3.0 - 4.5 PTT [id number] 06:30:00 Test Item Value Reference Range Interpretation Comments PTT ACTIVATED (test code = APTT) 30.5 SECONDS 25.1-36.5 N - XR CHEST [id number] 06:30:00 [facility] 1950 Sex: M Patient Name: ALEXIS GAUTHIER Unit No: [id number] EXAMS: CPT CODE: [id number] XR CHEST 1V [id number] one view AP 07/26/2020 6:30 AM CLINICAL INDICATION: Ventilator COMPARISON: 07/25/2020 LOCATION: W1 IMPRESSION: Cardiomediastinal contours are within normal limits. The central pulmonary vasculature is not engorged. Hazy bilateral interstitial opacities may reflect pneumonitis. There is a small v olume left pleural effusion. A mediastinal drain is present. at 0630 Reported and signed by: Ronny Romeo MD CC: Lan Ledbetter MD; Oniel Martin MD; Ryan Lambert Technologist: Doris Olea, RT(R) Transcrpt Date/Tm/Trnsp: 07/26/2020 (0630) [id number] Orig Print D/T: S: 07/26/2020 (0634) [facility] NAME: ALEXIS GAUTHIER [id number] PHYS: [place] [address] : 1950 AGE: 70 SEX: M LOC: [id number] PHONE #: [phone] EXAM DATE: 07/26/2020 STATUS: ADM IN FAX #: [phone] RADIOLOGY NO: PAGE 1 Signed ReportCOMPREHENSIVE METABOLIC [id number] 06:28:00 Test Item Value Reference Range Interpretation Comments SODIUM (test code = NA) 135 MMOL/L 137-145 L POTASSIUM (test code = K) 4.2 MMOL/L 3.5-5.1 N CHLORIDE (test code = CL) 102 MMOL/L 98-107 N CARBON DIOXIDE (test code = CO2) MMOL/L 22-30 GLUCOSE (test code = GLU) MG/DL 74-106 BLOOD UREA NITROGEN (test code = MG/DL 9-20 BUN) GLOMERULAR FILTRATION RATE (test code = GFR) CREATININE (test code = CREAT) MG/DL 0.66-1.25 TOTAL PROTEIN (test code = PROT) G/DL 6.2-7.6 ALBUMIN (test code = ALB) 2.7 G/DL 3.5-5.0 L CALCIUM (test code = CA) MG/DL 8.7-9.7 BILIRUBIN TOTAL (test code = BILT) MG/DL 0.2-1.3 SGOT/AST (test code = AST) UNITS/L 15-37 SGPT/ALT (test code = ALT) UNITS/L <50 ALKALINE PHOSPHATASE (test code = UNITS/L 38-126 ALKP) [id number] 06:28:00 Test Item Value Reference Range Interpretation Comments MAGNESIUM (test code = MAG) MG/DL 1.6-2.3 COMPREHENSIVE METABOLIC [id number] 06:27:00 Test Item Value Reference Range Interpretation Comments SODIUM (test code = NA) MMOL/L 137-145 POTASSIUM (test code = K) MMOL/L 3.5-5.1 CHLORIDE (test code = CL) 102 MMOL/L 98-107 N CARBON DIOXIDE (test code = CO2) MMOL/L 22-30 GLUCOSE (test code = GLU) MG/DL 74-106 BLOOD UREA NITROGEN (test code = MG/DL 9-20 BUN) GLOMERULAR FILTRATION RATE (test code = GFR) CREATININE (test code = CREAT) MG/DL 0.66-1.25 TOTAL PROTEIN (test code = PROT) G/DL 6.2-7.6 ALBUMIN (test code = ALB) 2.7 G/DL 3.5-5.0 L CALCIUM (test code = CA) MG/DL 8.7-9.7 BILIRUBIN TOTAL (test code = BILT) MG/DL 0.2-1.3 SGOT/AST (test code = AST) UNITS/L 15-37 SGPT/ALT (test code = ALT) UNITS/L <50 ALKALINE PHOSPHATASE (test code = UNITS/L 38-126 ALKP) [id number] 06:27:00 Test Item Value Reference Range Interpretation Comments MAGNESIUM (test code = MAG) MG/DL 1.6-2.3 CBC W/AUTO [id number] 06:14:00 Test Item Value Reference Range Interpretation Comments WHITE BLOOD CELL (test code = 19.8 K/MM3 3.8-9.8 H WBC) RED BLOOD CELL (test code = 2.92 M/MM3 3.95-5.67 L RBC) HEMOGLOBIN (test code = HGB) 9.1 G/DL 12.4-16.7 L HEMATOCRIT (test code = HCT) 27.4 % 35.9-49.5 L MEAN CELL VOLUME (test code = 94 fL 81.7-96.1 N MCV) MEAN CELL HGB (test code = MCH) 31.2 pg 27.6-33.2 N MEAN CELL HGB CONCETRATION 33.2 % 32.9-35.5 N (test code = MCHC) RED CELL DISTRIBUTION WIDTH 16.1 % 12.1-15.2 H (test code = RDW) PLATELET COUNT (test code = 133 K/MM3 129-368 PLT) MEAN PLATELET VOLUME (test code 10.2 fl 7.4-10.4 N = MPV) NEUTROPHIL % (test code = NT%) 82.0 % 43-75 H IMMATURE GRANULOCYTE % (test 1.3 % 0.0-2.0 N code = IG%) LYMPHOCYTE % (test code = LY%) 5.2 % 14-44 L MONOCYTE % (test code = MO%) 11.0 % 4-13 N EOSINOPHIL % (test code = EO%) 0.3 % 0-6 N BASOPHIL % (test code = BA%) 0.2 % 0-2 N NUCLEATED RBC % (test code = 0.0 % 0-1.0 N NRBC%) NEUTROPHIL # (test code = NT#) 16.21 K/mm3 2.0-7.6 H IMMATURE GRANULOCYTE # (test 0.25 x10 3/uL 0-0.03 H code = IG#) LYMPHOCYTE # (test code = LY#) 1.03 K/mm3 1.0-3.8 N MONOCYTE # (test code = MO#) 2.17 K/mm3 0.1-0.8 H EOSINOPHIL # (test code = EO#) 0.06 K/mm3 0.0-0.2 N BASOPHIL # (test code = BA#) 0.03 K/mm3 0.0-0.2 N NUCLEATED RBC # (test code = 0.00 K/mm3 0.0-0.1 N NRBC#) GLUCOSE BEDSIDE [id number] 03:30:00 Test Item Value Reference Range Interpretation Comments GLUCOSE BEDSIDE TESTING (test code 119 MG/DL 60-99 H = GLUBED) LACTIC [id number] 03:25:00 Test Item Value Reference Range Interpretation Comments LACTIC ACID (test code = LACT) 1.5 MMOL/L 0.7-2.1 N LACTIC [id number] 22:22:00 Test Item Value Reference Range Interpretation Comments LACTIC ACID (test code = LACT) 3.1 MMOL/L 0.7-2.1 H UNABLE TO DRAW BLOOD, REASON: CBNNOTIFIED PATIENT CARE STAFF: AIMEE 07/25/20 AT 1728 BY Audra AndersonLUCOSE BEDSIDE [id number] 22:05:00 Test Item Value Reference Range Interpretation Comments GLUCOSE BEDSIDE TESTING (test code 141 MG/DL 60-99 H = GLUBED) LACTIC [id number] 19:20:00 Test Item Value Reference Range Interpretation Comments LACTIC ACID (test code = LACT) 1.9 MMOL/L 0.7-2.1 N UNABLE TO DRAW BLOOD, REASON: CBNNOTIFIED PATIENT CARE STAFF: AIMEE 07/25/20 AT 1728 BY Audra Anderson AnLACTIC [id number] 16:09:00 Test Item Value Reference Range Interpretation Comments LACTIC ACID (test code = LACT) 2.5 MMOL/L 0.7-2.1 H UNABLE TO DRAW BLOOD, REASON: CBNNOTIFIED PATIENT CARE STAFF: RN AIMEE 07/25/20 AT 1538 BY WayneAngFLUONOFRE [id number] 15:23:00 Test Item Value Reference Range Interpretation Comments FLUID PH (test code = PHFL) 8.0 5.0-14.0 N PERICARDIAL FLUIDFLUID [id number] 15:23:00 Test Item Value Reference Range Interpretation Comments FLUID AMYLASE 53 UNITS/L Reference inte rvals and other (test code = method AMYFL) performancespec ifications have not been establ ished for this test. Thetest r esult should be integrated into the clinical contextfor inte rpretation. PERICARDIAL FLUIDBODY FLUID [id number] 15:23:00 Test Item Value Reference Range Interpretation Comments BODY FLUID 2.7 G/DL Reference inter vals and other ALBUMIN (test method code = ALBF) performancespec ifications have not been establ ished for this test. Thetest r esult should be integrated into the clinical contextfor inte rpretation. PERICARDIAL FLUIDPERICARDIAL FLD CELL [id number] 15:23:00 Test Item Value Reference Range Interpretation Comments DILUENT CHECK FOR CLEAR & pH CLEAR,pH=[address] (test code NEUTRAL = DILUENT) PERICARDIAL FLD RED COLORLESS COLOR (test code = COLPC) PERICARDIAL FLD BLOODY CLEAR APPEARANCE (test code = APPPC) PERICARDIAL FLD WBC 7333 #/MM3 (test code = WBCPC) PERICARDIAL FLD RBC 4146070 /MM3 0-0 H (test code = RBCPC) PERICARDIAL FLD 88 % POLY (test code = POLYPC) PERICARDIAL FLD 2 % 0-78 N LYMPHOCYTE (test code = LYMPHPC) PERICARDIAL FLD 9 % 0-71 N MONOCYTE (test code = MONOPC) PERICARDIAL FLD 1 % EOSINOPHIL (test code = EOSPC) PERICARDIAL FLD PATHOLOGY REVIEW NO MALIG NANT CELLS DIFF COMMENT (test IDENTIFIE D. code = COMPC) REVIEWED BY Dr Ilir patiño ON 07/25/20 PERICARDIAL FLUIDPERICARDIAL FLD [id number] 15:23:00 Test Item Value Reference Range Interpretation Comments PERICARDIAL FLD GLUCOSE (test code 172 MG/DL = GLUPC) PERICARDIAL FLUIDPERICARDIAL FLD TOTAL [id number] 15:23:00 Test Item Value Reference Range Interpretation Comments PERICARDIAL FLD TOTAL PROTEIN (test 4.6 G/DL code = PROTPC) PERICARDIAL FLUIDPERICARDIAL FLD [id number] 15:23:00 Test Item Value Reference Range Interpretation Comments PERICARDIAL FLD LDH (test code = 964 UNITS/L LDHPC) PERICARDIAL FLUIDLACTIC [id number] 13:12:00 Test Item Value Reference Range Interpretation Comments LACTIC ACID (test code = LACT) 4.4 MMOL/L 0.7-2.1 H UNABLE TO DRAW BLOOD, REASON: CBNNOTIFIED PATIENT CARE STAFF: AIMEE 07/25/20 AT 1047 BY Yara Masters EGLUCOSE BEDSIDE [id number] 12:40:00 Test Item Value Reference Range Interpretation Comments GLUCOSE BEDSIDE TESTING (test code 178 MG/DL 60-99 H = GLUBED) LACTIC [id number] 08:54:00 Test Item Value Reference Range Interpretation Comments LACTIC ACID (test 6.7 MMOL/L 0.7-2.1 HH CALLED TO YASSINE& code = LACT) READBACK ON AT 0854 BY Isha Parnell UNABLE TO DRAW BLOOD, REASON: CBNNOTIFIED PATIENT CARE STAFF: AIMEE 07/25/20 AT 0755 BY Yara Masters EPROTHROMBIN [id number] 08:45:00 Test Item Value Reference Range Interpretation Comments PROTHROMBIN TIME 18.0 SECONDS 9.4-12.5 H PATIENT (test code = PTP) INTERNATIONAL NORMAL 1.6 The INR is to be RATIO (test code = used only for INR) monitoring oral anticoagulantth erap y. INDICATION I NR VALUE ---- ---- ---- -------1. Prophylaxis, de ep venous thrombos is, including high risk surgery. 2.0 - 3.0 2. Prophylaxis, deep venous thrombosis, hip surgery, treatm ent for deep venous thrombosis or pulmonary prevention of systemic emboli sm in patients wit h valvular heart disease, atrial fibrillation, tissue heart va lve, or acute myocar dial infarction. 2.0 - 3.0 3. Handstitching Machine Collar Feller al prosthesis hear t valves, recurre nt systemic emboli sm. 3.0 - 4.5 UNABLE TO DRAW BLOOD, REASON: CBNNOTIFIED PATIENT CARE STAFF: AIMEE 07/25/20 AT [facility] BY Yara Masters EPTT [id number] 08:45:00 Test Item Value Reference Range Interpretation Comments PTT ACTIVATED (test code = APTT) 28.8 SECONDS 25.1-36.5 N UNABLE TO DRAW BLOOD, REASON: CBNNOTIFIED PATIENT CARE STAFF: AIMEE 07/25/20 AT [facility] BY Yara Masters [id number] 08:45:00 Test Item Value Reference Range Interpretation Comments FIBRINOGEN (test code = FIB) 211 mg/dL 200-393 N UNABLE TO DRAW BLOOD, REASON: CBNNOTIFIED PATIENT CARE STAFF: AIMEE 07/25/20 AT [facility] BY Yara Masters [id number] 08:45:00 Test Item Value Reference Range Interpretation Comments D-DIMER (test 1350 ng/mLFEU 0-499 H Negative Pred ictive Value code = cutoff for DVT & PE: < 500 DDIMER) ng/mL FEUInterp retation: A value of < 500 ng/mL FEU has a NegativeP redictive Value in ruling out a DVT or PE diagnosis .A value of 500 ng/mL or gr eater is considered Positive.Positi ve result cannot be used for the diagnosis of DV T andPE without using o f standard radiological pr ocedures. UNABLE TO DRAW BLOOD, REASON: CBNNOTIFIED PATIENT CARE STAFF: AIMEE 07/25/20 AT [facility] BY Yara Masters EARTERIAL BLOOD [id number] 08:29:00 Test Item Value Reference Range Interpretation Comments ARTERIAL BLOOD GAS PH (test code 7.38 mmHg 7.35-7.45 N = PHA) ARTERIAL BLOOD GAS PCO2 (test 39.4 mmHg 35.0-45.0 N code = PCO2A) ARTERIAL BLOOD GAS PO2 (test code 89.2 mmol/L 80.0-100.0 N = PO2A) BICARBONATE TOTAL HCO3 (test code 22.8 mmol/L 20.0-26.0 N = HCO3) BASE EXCESS (test code = MOON) -2.1 mmol/L -3.0-3.0 N ABG O2 SATURATION (test code = 96.7 % 95.0-100.0 N SATA) ABG L/M (test code = L/M) 4 L/MIN ABG DELIVERY (test code = SILAS) N/C ABG TEMPERATURE (test code = 37.0 C >37 TEMPA) ABG SITE (test code = SITEA) AL ALLENS TEST (test code = ALLENS) NA CHECK FIO2 (test code = COHBGFFIO2) 36 % PaO2/[id number] 08:29:00 Test Item Value Reference Range Interpretation Comments PaO2/FiO2 (test code = [id number]) mm/Hg ARTERIAL BLOOD [id number] 08:29:00 Test Item Value Reference Range Interpretation Comments ARTERIAL BLOOD GAS PH (test code 7.38 mmHg 7.35-7.45 N = PHA) ARTERIAL BLOOD GAS PCO2 (test 39.4 mmHg 35.0-45.0 N code = PCO2A) ARTERIAL BLOOD GAS PO2 (test code 89.2 mmol/L 80.0-100.0 N = PO2A) BICARBONATE TOTAL HCO3 (test code 22.8 mmol/L 20.0-26.0 N = HCO3) BASE EXCESS (test code = MOON) -2.1 mmol/L -3.0-3.0 N ABG O2 SATURATION (test code = 96.7 % 95.0-100.0 N SATA) ABG L/M (test code = L/M) 4 L/MIN ABG DELIVERY (test code = SILAS) N/C ABG TEMPERATURE (test code = 37.0 C >37 TEMPA) ABG SITE (test code = SITEA) AL ALLENS TEST (test code = ALLENS) NA CHECK FIO2 (test code = COHBGFFIO2) 36 % PaO2/[id number] 08:29:00 Test Item Value Reference Range Interpretation Comments PaO2/FiO2 (test code = [id number]) 247.77 mm/Hg PLATELET [id number] 08:29:00 Test Item Value Reference Range Interpretation Comments PLATELET COUNT (test code = PLT) 169 K/MM3 129-368 N UNABLE TO DRAW BLOOD, REASON: CBNNOTIFIED PATIENT CARE STAFF: AIMEE 07/25/20 AT 0756 BY Yara Masters E- XR CHEST [id number] 08:16:00 [facility] : 1950 Sex: M Patient Name: ALEXIS GAUTHIER Unit No: [id number] EXAMS: CPT CODE: [id number] XR CHEST 1V [id number]: - XR CHEST 1V. LOCATION: . HISTORY: Post Op Thoracotomy. COMPARISON: Radiograph dated109/23/2019 at 1801 hours. TECHNIQUE: Single AP view of the chest was obtained. FINDINGS: Endotracheal tube and mediastinal drain are unchanged in position. Esophogastric tube extend below the left hemidiaphragm. The heart is normal in size. There has been interval development of left basilar opacities. There is hazy opacification of the right hemithorax. No acute osseous abnormality is identified. IMPRESSION: Interval development of left basilar opacities, likely representing atelectasis. Hazy opacification of the right hemithorax, which may be secondary to layering pleural fluid. at 0816 Reported and signed by: Rachel Gray MD CC: Cedric Ledbetter MD; Laura WINKLER; Ryan Lambert Technologist: Peyton Osborne RT(R) Transcrpt Date/Tm/Trnsp: 07/25/2020 (0816) [email or web address] Orig Print D/T: S: 07/25/2020 (0819) [facility] NAME: ALEXIS GAUTHIER [id number] PHYS: [place] [address] : 1950 AGE: 70 SEX: M LOC: [id number].[id number] A PHONE #: [phone] EXAM DATE: 07/25/2020 STATUS:ADM IN FAX #: [phone] RADIOLOGY NO: PAGE 1 Signed ReportCOMPREHENSIVE METABOLIC [id number] 06:00:00 Test Item Value Reference Range Interpretation Comments SODIUM (test code = 146 MMOL/L 137-145 H NA) POTASSIUM (test code 3.8 MMOL/L 3.5-5.1 N = K) CHLORIDE (test code 109 MMOL/L 98-107 H = CL) CARBON DIOXIDE (test 22 MMOL/L 22-30 N code = CO2) ANION GAP (test code 19 MMOL/L 14-24 N = GAP) GLUCOSE (test code = 305 MG/DL 74-106 HH CALLED TO CATRACHO Ramirez& GLU) READBACK ON AT 0553 BY Salinas Guzman BLOOD UREA NITROGEN 16 MG/DL 9-20 N (test code = BUN) GLOMERULAR > 60 Reporting units : FILTRATION RATE ml/min/1.73 m2 (test code = GFR) (Modified MDRD Formula)Referen ce Range: > or = 6 0 ml/min/1.73 m2 CREATININE (test 1.00 MG/DL 0.66-1.25 N code = CREAT) TOTAL PROTEIN (test 4.9 G/DL 6.2-7.6 L code = PROT) ALBUMIN (test code = 3.1 G/DL 3.5-5.0 L ALB) CALCIUM (test code = 7.5 MG/DL 8.4-10.2 L CA) BILIRUBIN TOTAL 1.2 MG/DL 0.2-1.3 Eltrombopag (test code = BILT) Interfere nce for Vitros Product TBil, BuBc: ======= ======= ======A ssay Eltrombopa g Analyte/ Max Ob served Avg. Bias Concentration Concentration Concentration== ======= ======= ======= =======TBil 7mg /dl TBil/ 1.2mg/dl +0.23mg.dl +0.20mg/dlBuBc 3.5mg/dl Bu/0.8 mg/dl +0.25mg/dl +0.24mg/dlBuBc 7 mg/dl Bu/14.2mg/dl +0.38mg/dl +0.25mg/dlBuBc 5mg/dl Bc/0mg/dl +0.25 mg/dl +0.15mg/dlBuBc 3.5mg/dl Bc/2.8 mg/dl +0.25mg/dl +0.2 3mg/dl SGOT/AST (test code 378 UNITS/L 17-59 H = AST) SGPT/ALT (test code 352 UNITS/L <50 = ALT) ALKALINE PHOSPHATASE 39 UNITS/L 38-126 (test code = ALKP) [id number] 06:00:00 Test Item Value Reference Range Interpretation Comments MAGNESIUM (test code = MAG) 2.4 MG/DL 1.6-2.3 H COMPREHENSIVE METABOLIC [id number] 05:59:00 Test Item Value Reference Range Interpretation Comments SODIUM (test code = 146 MMOL/L 137-145 H NA) POTASSIUM (test code 3.8 MMOL/L 3.5-5.1 N = K) CHLORIDE (test code 109 MMOL/L 98-107 H = CL) CARBON DIOXIDE (test 22 MMOL/L 22-30 N code = CO2) ANION GAP (test code 19 MMOL/L 14-24 N = GAP) GLUCOSE (test code = 305 MG/DL 74-106 HH CALLED TO CATRACHO TERRELL) READBACK ON AT 0553 BY Kwake,Salinas er BLOOD UREA NITROGEN 16 MG/DL 9-20 N (test code = BUN) GLOMERULAR > 60 Reporting units : FILTRATION RATE ml/min/1.73 m2 (test code = GFR) (Modified MDRD Formula)Referen ce Range: > or = 6 0 ml/min/1.73 m2 CREATININE (test 1.00 MG/DL 0.66-1.25 N code = CREAT) TOTAL PROTEIN (test 4.9 G/DL 6.2-7.6 L code = PROT) ALBUMIN (test code = 3.1 G/DL 3.5-5.0 L ALB) CALCIUM (test code = 7.5 MG/DL 8.4-10.2 L CA) BILIRUBIN TOTAL 1.2 MG/DL 0.2-1.3 Eltrombopag (test code = BILT) Interfere nce for Vitros Product TBil, BuBc: ======= ======= ======A ssay Eltrombopa g Analyte/ Max Ob served Avg. Bias Concentration Concentration Concentration== ======= ======= ======= =======TBil 7mg /dl TBil/ 1.2mg/dl +0.23mg.dl +0.20mg/dlBuBc 3.5mg/dl Bu/0.8 mg/dl +0.25mg/dl +0.24mg/dlBuBc 7 mg/dl Bu/14.2mg/dl +0.38mg/dl +0.25mg/dlBuBc 5mg/dl Bc/0mg/dl +0.25 mg/dl +0.15mg/dlBuBc 3.5mg/dl Bc/2.8 mg/dl +0.25mg/dl +0.2 3mg/dl SGOT/AST (test code 378 UNITS/L 17-59 H = AST) SGPT/ALT (test code UNITS/L <50 = ALT) ALKALINE PHOSPHATASE 39 UNITS/L 38-126 (test code = ALKP) [id number] 05:59:00 Test Item Value Reference Range Interpretation Comments MAGNESIUM (test code = MAG) 2.4 MG/DL 1.6-2.3 H LACTIC [id number] 05:53:00 Test Item Value Reference Range Interpretation Comments LACTIC ACID (test 10.7 MMOL/L 0.7-2.1 HH CALLED TO CATRACHO Ramirez& code = LACT) READBACK ON AT 0553 BY Salinas Guzman COMPREHENSIVE METABOLIC [id number] 05:53:00 Test Item Value Reference Range Interpretation Comments SODIUM (test code = 146 MMOL/L 137-145 H NA) POTASSIUM (test code 3.8 MMOL/L 3.5-5.1 N = K) CHLORIDE (test code = 109 MMOL/L 98-107 H CL) CARBON DIOXIDE (test 22 MMOL/L 22-30 N code = CO2) ANION GAP (test code 19 MMOL/L 14-24 N = GAP) GLUCOSE (test code = 305 MG/DL 74-106 HH CALLED TO CATRACHO Ramirez& GLU) READBACK ON AT 0553 BY Salinas Guzman BLOOD UREA NITROGEN 16 MG/DL 9-20 N (test code = BUN) GLOMERULAR FILTRATION > 60 Report ing units: RATE (test code = ml/min/1.7 3 m2 GFR) (Modified MDRD Formula)Referen ce Range: > or = 6 0 ml/min/1.73 m2 CREATININE (test code 1.00 MG/DL 0.66-1.25 N = CREAT) TOTAL PROTEIN (test 4.9 G/DL 6.2-7.6 L code = PROT) ALBUMIN (test code = 3.1 G/DL 3.5-5.0 L ALB) CALCIUM (test code = MG/DL 8.7-9.7 CA) BILIRUBIN TOTAL (test 1.2 MG/DL 0.2-1.3 Eltrom bopag code = BILT) Interference fo r Vitros Product TBil, BuBc: ======= ======= ======A ssay Eltrombopa g Analyte/ Max Ob served Avg. Bias Concentration Concentration Concentration== ======= ======= ======= =======TBil 7mg /dl TBil/ 1.2mg/dl +0.23mg.dl +0.20mg/dlBuBc 3.5mg/dl Bu/0.8 mg/dl +0.25mg/dl +0.24mg/dlBuBc 7 mg/dl Bu/14.2mg/dl +0.38mg/dl +0.25mg/dlBuBc 5mg/dl Bc/0mg/dl +0.25 mg/dl +0.15mg/dlBuBc 3.5mg/dl Bc/2.8 mg/dl +0.25mg/dl +0.2 3mg/dl SGOT/AST (test code = UNITS/L 15-37 AST) SGPT/ALT (test code = UNITS/L <50 ALT) ALKALINE PHOSPHATASE 39 UNITS/L 38-126 (test code = ALKP) [id number] 05:53:00 Test Item Value Reference Range Interpretation Comments MAGNESIUM (test code = MAG) MG/DL 1.6-2.3 COMPREHENSIVE METABOLIC [id number] 05:53:00 Test Item Value Reference Range Interpretation Comments SODIUM (test code = 146 MMOL/L 137-145 H NA) POTASSIUM (test code 3.8 MMOL/L 3.5-5.1 N = K) CHLORIDE (test code = 109 MMOL/L 98-107 H CL) CARBON DIOXIDE (test 22 MMOL/L 22-30 N code = CO2) ANION GAP (test code 19 MMOL/L 14-24 N = GAP) GLUCOSE (test code = 305 MG/DL 74-106 HH CALLED TO CATRACHO TERRELL) READBACK ON AT 0553 BY Salinas Guzman BLOOD UREA NITROGEN 16 MG/DL 9-20 N (test code = BUN) GLOMERULAR FILTRATION > 60 Report ing units: RATE (test code = ml/min/1.7 3 m2 GFR) (Modified MDRD Formula)Referen ce Range: > or = 6 0 ml/min/1.73 m2 CREATININE (test code 1.00 MG/DL 0.66-1.25 N = CREAT) TOTAL PROTEIN (test 4.9 G/DL 6.2-7.6 L code = PROT) ALBUMIN (test code = 3.1 G/DL 3.5-5.0 L ALB) CALCIUM (test code = 7.5 MG/DL 8.4-10.2 L CA) BILIRUBIN TOTAL (test 1.2 MG/DL 0.2-1.3 Eltrom bopag code = BILT) Interference fo r Vitros Product TBil, BuBc: ======= ======= ======A ssay Eltrombopa g Analyte/ Max Ob served Avg. Bias Concentration Concentration Concentration== ======= ======= ======= =======TBil 7mg /dl TBil/ 1.2mg/dl +0.23mg.dl +0.20mg/dlBuBc 3.5mg/dl Bu/0.8 mg/dl +0.25mg/dl +0.24mg/dlBuBc 7 mg/dl Bu/14.2mg/dl +0.38mg/dl +0.25mg/dlBuBc 5mg/dl Bc/0mg/dl +0.25 mg/dl +0.15mg/dlBuBc 3.5mg/dl Bc/2.8 mg/dl +0.25mg/dl +0.2 3mg/dl SGOT/AST (test code = UNITS/L 15-37 AST) SGPT/ALT (test code = UNITS/L <50 ALT) ALKALINE PHOSPHATASE 39 UNITS/L 38-126 (test code = ALKP) [id number] 05:53:00 Test Item Value Reference Range Interpretation Comments MAGNESIUM (test code = MAG) 2.4 MG/DL 1.6-2.3 H COMPREHENSIVE METABOLIC [id number] 05:52:00 Test Item Value Reference Range Interpretation Comments SODIUM (test code = 146 MMOL/L 137-145 H NA) POTASSIUM (test code 3.8 MMOL/L 3.5-5.1 N = K) CHLORIDE (test code = 109 MMOL/L 98-107 H CL) CARBON DIOXIDE (test 22 MMOL/L 22-30 N code = CO2) ANION GAP (test code 19 MMOL/L 14-24 N = GAP) GLUCOSE (test code = MG/DL 74-106 GLU) BLOOD UREA NITROGEN 16 MG/DL 9-20 N (test code = BUN) GLOMERULAR FILTRATION > 60 Report ing units: RATE (test code = ml/min/1.7 3 m2 GFR) (Modified MDRD Formula)Referen ce Range: > or = 6 0 ml/min/1.73 m2 CREATININE (test code 1.00 MG/DL 0.66-1.25 N = CREAT) TOTAL PROTEIN (test 4.9 G/DL 6.2-7.6 L code = PROT) ALBUMIN (test code = 3.1 G/DL 3.5-5.0 L ALB) CALCIUM (test code = MG/DL 8.7-9.7 CA) BILIRUBIN TOTAL (test 1.2 MG/DL 0.2-1.3 Eltrom bopag code = BILT) Interference fo r Vitros Product TBil, BuBc: ======= ======= ======A ssay Eltrombopa g Analyte/ Max Ob served Avg. Bias Concentration Concentration Concentration== ======= ======= ======= =======TBil 7mg /dl TBil/ 1.2mg/dl +0.23mg.dl +0.20mg/dlBuBc 3.5mg/dl Bu/0.8 mg/dl +0.25mg/dl +0.24mg/dlBuBc 7 mg/dl Bu/14.2mg/dl +0.38mg/dl +0.25mg/dlBuBc 5mg/dl Bc/0mg/dl +0.25 mg/dl +0.15mg/dlBuBc 3.5mg/dl Bc/2.8 mg/dl +0.25mg/dl +0.2 3mg/dl SGOT/AST (test code = UNITS/L 15-37 AST) SGPT/ALT (test code = UNITS/L <50 ALT) ALKALINE PHOSPHATASE UNITS/L 38-126 (test code = ALKP) [id number] 05:52:00 Test Item Value Reference Range Interpretation Comments MAGNESIUM (test code = MAG) MG/DL 1.6-2.3 COMPREHENSIVE METABOLIC [id number] 05:49:00 Test Item Value Reference Range Interpretation Comments SODIUM (test code = NA) 146 MMOL/L 137-145 H POTASSIUM (test code = K) 3.8 MMOL/L 3.5-5.1 N CHLORIDE (test code = CL) 109 MMOL/L 98-107 H CARBON DIOXIDE (test code = CO2) MMOL/L 22-30 GLUCOSE (test code = GLU) MG/DL 74-106 BLOOD UREA NITROGEN (test code = MG/DL 9-20 BUN) GLOMERULAR FILTRATION RATE (test code = GFR) CREATININE (test code = CREAT) MG/DL 0.66-1.25 TOTAL PROTEIN (test code = PROT) G/DL 6.2-7.6 ALBUMIN (test code = ALB) 3.1 G/DL 3.5-5.0 L CALCIUM (test code = CA) MG/DL 8.7-9.7 BILIRUBIN TOTAL (test code = BILT) MG/DL 0.2-1.3 SGOT/AST (test code = AST) UNITS/L 15-37 SGPT/ALT (test code = ALT) UNITS/L <50 ALKALINE PHOSPHATASE (test code = UNITS/L 38-126 ALKP) [id number] 05:49:00 Test Item Value Reference Range Interpretation Comments MAGNESIUM (test code = MAG) MG/DL 1.6-2.3 PROTHROMBIN [id number] 05:38:00 Test Item Value Reference Range Interpretation Comments PROTHROMBIN TIME 17.3 SECONDS 9.4-12.5 H PATIENT (test code = PTP) INTERNATIONAL NORMAL 1.6 The INR is to be RATIO (test code = used only for INR) monitoring oral anticoagulantth erap y. INDICATION I NR VALUE ---- ---- ---- -------1. Prophylaxis, de ep venous thrombos is, including high risk surgery. 2.0 - 3.0 2. Prophylaxis, deep venous thrombosis, hip surgery, treatm ent for deep venous thrombosis or pulmonary prevention of systemic emboli sm in patients wit h valvular heart disease, atrial fibrillation, tissue heart va lve, or acute myocar dial infarction. 2. 0 - 3.0 3. Handstitching Machine [employer] Feller al prosthesis hear t valves, recurre nt systemic emboli sm. 3.0 - 4.5 PTT [id number] 05:38:00 Test Item Value Reference Range Interpretation Comments PTT ACTIVATED (test code = APTT) 28.7 SECONDS 25.1-36.5 N CBC W/AUTO [id number] 05:30:00 Test Item Value Reference Range Interpretation Comments WHITE BLOOD CELL (test code = 18.9 K/MM3 3.8-9.8 H WBC) RED BLOOD CELL (test code = 3.33 M/MM3 3.95-5.67 L RBC) HEMOGLOBIN (test code = HGB) 10.4 G/DL 12.4-16.7 L HEMATOCRIT (test code = HCT) 31.4 % 35.9-49.5 L MEAN CELL VOLUME (test code = 94 fL 81.7-96.1 N MCV) MEAN CELL HGB (test code = MCH) 31.2 pg 27.6-33.2 N MEAN CELL HGB CONCETRATION 33.1 % 32.9-35.5 N (test code = MCHC) RED CELL DISTRIBUTION WIDTH 16.5 % 12.1-15.2 H (test code = RDW) PLATELET COUNT (test code = 180 K/MM3 129-368 N PLT) MEAN PLATELET VOLUME (test code 9.4 fl 7.4-10.4 N = MPV) NEUTROPHIL % (test code = NT%) 89.7 % 43-75 H IMMATURE GRANULOCYTE % (test 0.8 % 0.0-2.0 N code = IG%) LYMPHOCYTE % (test code = LY%) 1.9 % 14-44 L MONOCYTE % (test code = MO%) 7.4 % 4-13 N EOSINOPHIL % (test code = EO%) 0.0 % 0-6 N BASOPHIL % (test code = BA%) 0.2 % 0-2 N NUCLEATED RBC % (test code = 0.0 % 0-1.0 N NRBC%) NEUTROPHIL # (test code = NT#) 16.95 K/mm3 2.0-7.6 H IMMATURE GRANULOCYTE # (test 0.15 x10 3/uL 0-0.03 H code = IG#) LYMPHOCYTE # (test code = LY#) 0.36 K/mm3 1.0-3.8 L MONOCYTE # (test code = MO#) 1.39 K/mm3 0.1-0.8 H EOSINOPHIL # (test code = EO#) 0.00 K/mm3 0.0-0.2 N BASOPHIL # (test code = BA#) 0.03 K/mm3 0.0-0.2 N NUCLEATED RBC # (test code = 0.00 K/mm3 0.0-0.1 N NRBC#) ARTERIAL BLOOD [id number] 03:58:00 Test Item Value Reference Range Interpretation Comments ARTERIAL BLOOD GAS PH (test code 7.33 mmHg 7.35-7.45 L = PHA) ARTERIAL BLOOD GAS PCO2 (test 38.9 mmHg 35.0-45.0 N code = PCO2A) ARTERIAL BLOOD GAS PO2 (test code 89.1 mmol/L 80.0-100.0 N = PO2A) BICARBONATE TOTAL HCO3 (test code 20.1 mmol/L 20.0-26.0 N = HCO3) BASE EXCESS (test code = MOON) -5.2 mmol/L -3.0-3.0 L ABG O2 SATURATION (test code = 96.3 % 95.0-100.0 N SATA) ABG DELIVERY (test code = SILAS) VENT ABG VENT RESP RATE (test code = 18.0 /MIN RRA) ABG TIDAL VOLUME (test code = 400 ml TVA) ABG PEEP (test code = PEEPA) 5.0 cmH2O ABG TEMPERATURE (test code = 37.0 C >37 TEMPA) ABG SITE (test code = SITEA) AL ALLENS TEST (test code = ALLENS) NA CHECK FIO2 (test code = COHBGFFIO2) 70 % PaO2/[id number] 03:58:00 Test Item Value Reference Range Interpretation Comments PaO2/FiO2 (test code = [id number]) mm/Hg ARTERIAL BLOOD [id number] 03:58:00 Test Item Value Reference Range Interpretation Comments ARTERIAL BLOOD GAS PH (test code 7.33 mmHg 7.35-7.45 L = PHA) ARTERIAL BLOOD GAS PCO2 (test 38.9 mmHg 35.0-45.0 N code = PCO2A) ARTERIAL BLOOD GAS PO2 (test code 89.1 mmol/L 80.0-100.0 N = PO2A) BICARBONATE TOTAL HCO3 (test code 20.1 mmol/L 20.0-26.0 N = HCO3) BASE EXCESS (test code = MOON) -5.2 mmol/L -3.0-3.0 L ABG O2 SATURATION (test code = 96.3 % 95.0-100.0 N SATA) ABG DELIVERY (test code = SILAS) VENT ABG VENT RESP RATE (test code = 18.0 /MIN RRA) ABG TIDAL VOLUME (test code = 400 ml TVA) ABG PEEP (test code = PEEPA) 5.0 cmH2O ABG TEMPERATURE (test code = 37.0 C >37 TEMPA) ABG SITE (test code = SITEA) AL ALLENS TEST (test code = ALLENS) NA CHECK FIO2 (test code = COHBGFFIO2) 70 % PaO2/[id number] 03:58:00 Test Item Value Reference Range Interpretation Comments PaO2/FiO2 (test code = [id number]) 127.28 mm/Hg GLUCOSE BEDSIDE [id number] 03:32:00 Test Item Value Reference Range Interpretation Comments GLUCOSE BEDSIDE TESTING (test code 304 MG/DL 60-99 HH = GLUBED) LACTIC [id number] 00:02:00 Test Item Value Reference Range Interpretation Comments LACTIC ACID (test 11.4 MMOL/L 0.7-2.1 HH CALLED TO CATRACHO E.& code = LACT) READBACK ON AT 0002 BY [place] GLUCOSE BEDSIDE [id number] 23:54:00 Test Item Value Reference Range Interpretation Comments GLUCOSE BEDSIDE TESTING (test code 319 MG/DL 60-99 HH = GLUBED) FLUID [id number] 23:26:00 Test Item Value Reference Range Interpretation Comments FLUID PH (test code = PHFL) 8.0 5.0-14.0 N PERICARDIAL FLUIDFLUID [id number] 23:26:00 Test Item Value Reference Range Interpretation Comments FLUID AMYLASE 53 UNITS/L Reference inte rvals and other (test code = method AMYFL) performancespec ifications have not been establ ished for this test. Thetest r esult should be integrated into the clinical contextfor inte rpretation. PERICARDIAL FLUIDBODY FLUID [id number] 23:26:00 Test Item Value Reference Range Interpretation Comments BODY FLUID 2.7 G/DL Reference inter vals and other ALBUMIN (test method code = ALBF) performancespec ifications have not been establ ished for this test. Thetest r esult should be integrated into the clinical contextfor inte rpretation. PERICARDIAL FLUIDPERICARDIAL FLD CELL [id number] 23:26:00 Test Item Value Reference Range Interpretation Comments DILUENT CHECK FOR CELL CT CLEAR & pH NEUTRAL CLEAR,pH=7 (test code = DILUENT) PERICARDIAL FLD COLOR RED COLORLESS (test code = COLPC) PERICARDIAL FLD APPEARANCE BLOODY CLEAR (test code = APPPC) PERICARDIAL FLD WBC (test 7333 #/MM3 code = WBCPC) PERICARDIAL FLD RBC (test 5920287 /MM3 0-0 H code = RBCPC) PERICARDIAL FLD POLY (test 88 % code = POLYPC) PERICARDIAL FLD LYMPHOCYTE 2 % 0-78 N (test code = LYMPHPC) PERICARDIAL FLD MONOCYTE 9 % 0-71 N (test code = MONOPC) PERICARDIAL FLD EOSINOPHIL 1 % (test code = EOSPC) PERICARDIAL FLUIDPERICARDIAL FLD [id number] 23:26:00 Test Item Value Reference Range Interpretation Comments PERICARDIAL FLD GLUCOSE (test code 172 MG/DL = GLUPC) PERICARDIAL FLUIDPERICARDIAL FLD TOTAL [id number] 23:26:00 Test Item Value Reference Range Interpretation Comments PERICARDIAL FLD TOTAL PROTEIN (test 4.6 G/DL code = PROTPC) PERICARDIAL FLUIDPERICARDIAL FLD [id number] 23:26:00 Test Item Value Reference Range Interpretation Comments PERICARDIAL FLD LDH (test code = 964 UNITS/L LDHPC) PERICARDIAL FLUIDARTERIAL BLOOD [id number] 21:50:00 Test Item Value Reference Range Interpretation Comments ARTERIAL BLOOD GAS PH 7.16 mmHg 7.35-7.45 LL (test code = PHA) ARTERIAL BLOOD GAS 37.7 mmHg 35.0-45.0 N PCO2 (test code = PCO2A) ARTERIAL BLOOD GAS PO2 137.6 mmol/L 80.0-100.0 H (test code = PO2A) BICARBONATE TOTAL HCO3 13.1 mmol/L 20.0-26.0 L (test code = HCO3) BASE EXCESS (test code -14.8 mmol/L -3.0-3.0 L = MOON) ABG O2 SATURATION 98.0 % 95.0-100.0 N All critic al values (test code = SATA) report to and readback by DR. LAMBERT by LY EL at 07/24/2020 9:45:53 PM ABG DELIVERY (test VENT code = SILAS) ABG VENT MODE (test A/C code = MODEA) ABG VENT RESP RATE 18.0 /MIN (test code = RRA) ABG TIDAL VOLUME (test 400 ml code = TVA) ABG PEEP (test code = 5.0 cmH2O PEEPA) ABG TEMPERATURE (test 37.0 C >37 code = TEMPA) ABG SITE (test code = AL SITEA) ALLENS TEST (test code NA CHECK = ALLENS) FIO2 (test code = 70 % COHBGFFIO2) PaO2/[id number] 21:50:00 Test Item Value Reference Range Interpretation Comments PaO2/FiO2 (test code = [id number]) 196.57 mm/Hg ARTERIAL BLOOD [id number] 21:49:00 Test Item Value Reference Range Interpretation Comments ARTERIAL BLOOD GAS PH 7.16 mmHg 7.35-7.45 LL (test code = PHA) ARTERIAL BLOOD GAS 37.7 mmHg 35.0-45.0 N PCO2 (test code = PCO2A) ARTERIAL BLOOD GAS PO2 137.6 mmol/L 80.0-100.0 H (test code = PO2A) BICARBONATE TOTAL HCO3 13.1 mmol/L 20.0-26.0 L (test code = HCO3) BASE EXCESS (test code -14.8 mmol/L -3.0-3.0 L = MOON) ABG O2 SATURATION 98.0 % 95.0-100.0 N All critic al values (test code = SATA) report to and readback by DR. LAMBERT by LY EL at 07/24/2020 9:45:53 PM ABG DELIVERY (test VENT code = SILAS) ABG VENT MODE (test A/C code = MODEA) ABG VENT RESP RATE 18.0 /MIN (test code = RRA) ABG TIDAL VOLUME (test 400 ml code = TVA) ABG PEEP (test code = 5.0 cmH2O PEEPA) ABG TEMPERATURE (test 37.0 C >37 code = TEMPA) ABG SITE (test code = AL SITEA) ALLENS TEST (test code NA CHECK = ALLENS) FIO2 (test code = 70 % COHBGFFIO2) PaO2/[id number] 21:49:00 Test Item Value Reference Range Interpretation Comments PaO2/FiO2 (test code = [id number]) mm/Hg FLUID [id number] 21:46:00 Test Item Value Reference Range Interpretation Comments FLUID PH (test code = PHFL) 8.0 5.0-14.0 N PERICARDIAL FLUIDFLUID [id number] 21:46:00 Test Item Value Reference Range Interpretation Comments FLUID AMYLASE 53 UNITS/L Reference inte rvals and other (test code = method AMYFL) performancespec ifications have not been establ ished for this test. Thetest r esult should be integrated into the clinical contextfor inte rpretation. PERICARDIAL FLUIDBODY FLUID [id number] 21:46:00 Test Item Value Reference Range Interpretation Comments BODY FLUID 2.7 G/DL Reference inter vals and other ALBUMIN (test method code = ALBF) performancespec ifications have not been establ ished for this test. Thetest r esult should be integrated into the clinical contextfor inte rpretation. PERICARDIAL FLUIDPERICARDIAL FLD CELL [id number] 21:46:00 Test Item Value Reference Range Interpretation Comments DILUENT CHECK FOR CELL CT CLEAR & pH NEUTRAL CLEAR,pH=7 (test code = DILUENT) PERICARDIAL FLD COLOR RED COLORLESS (test code = COLPC) PERICARDIAL FLD APPEARANCE BLOODY CLEAR (test code = APPPC) PERICARDIAL FLD WBC (test 7333 #/MM3 code = WBCPC) PERICARDIAL FLD RBC (test 8104396 /MM3 0-0 H code = RBCPC) PERICARDIAL FLUIDPERICARDIAL FLD [id number] 21:46:00 Test Item Value Reference Range Interpretation Comments PERICARDIAL FLD GLUCOSE (test code 172 MG/DL = GLUPC) PERICARDIAL FLUIDPERICARDIAL FLD TOTAL [id number] 21:46:00 Test Item Value Reference Range Interpretation Comments PERICARDIAL FLD TOTAL PROTEIN (test 4.6 G/DL code = PROTPC) PERICARDIAL FLUIDPERICARDIAL FLD [id number] 21:46:00 Test Item Value Reference Range Interpretation Comments PERICARDIAL FLD LDH (test code = 964 UNITS/L LDHPC) PERICARDIAL FLUIDBASIC METABOLIC [id number] 21:11:00 Test Item Value Reference Range Interpretation Comments SODIUM (test code = 141 MMOL/L 137-145 N NA) POTASSIUM (test code = 3.6 MMOL/L 3.5-5.1 N K) CHLORIDE (test code = 110 MMOL/L 98-107 H CL) CARBON DIOXIDE (test 15 MMOL/L 22-30 L code = CO2) GLUCOSE (test code = 309 MG/DL 74-106 HH CALLED TO CLEMENT Cabrera& XANDER) READBACK ON AT 211 BY Lyle Chambers BLOOD UREA NITROGEN 15 MG/DL 9-20 N (test code = BUN) GLOMERULAR FILTRATION > 60 Report ing units: RATE (test code = GFR) ml/mi n/1.73 m2 (Modified MDRD Formula)Referen ce Range: > or = 6 0 ml/min/1.73 m2 CREATININE (test code 0.90 MG/DL 0.66-1.25 N = CREAT) CALCIUM (test code = 7.1 MG/DL 8.4-10.2 L CA) UNABLE TO DRAW BLOOD, REASON: CBNNOTIFIED PATIENT CARE STAFF: REMEDIOS 07/24/20 AT 1958 BY Audra Anderson NO GREEN TOP WERE SENT.NOTIFIED DOROTA HIGHTOWER AT 2040 [id number] 21:11:00 Test Item Value Reference Range Interpretation Comments MAGNESIUM (test code = MAG) 1.5 MG/DL 1.6-2.3 L UNABLE TO DRAW BLOOD, REASON: CBNNOTIFIED PATIENT CARE STAFF: REMEDIOS 07/24/20 AT 1957 BY Audra Anderson An NO GREEN TOP WERE SENT.NOTIFIED DOROTA HIGHTOWER AT 2040 BASIC METABOLIC [id number] 21:09:00 Test Item Value Reference Range Interpretation Comments SODIUM (test code = 141 MMOL/L 137-145 N NA) POTASSIUM (test code = 3.6 MMOL/L 3.5-5.1 N K) CHLORIDE (test code = 110 MMOL/L 98-107 H CL) CARBON DIOXIDE (test 15 MMOL/L 22-30 L code = CO2) GLUCOSE (test code = MG/DL 74-106 GLU) BLOOD UREA NITROGEN MG/DL 9-20 (test code = BUN) GLOMERULAR FILTRATION > 60 Report ing units: RATE (test code = GFR) ml/mi n/1.73 m2 (Modified MDRD Formula)Referen ce Range: > or = 6 0 ml/min/1.73 m2 CREATININE (test code 0.90 MG/DL 0.66-1.25 N = CREAT) CALCIUM (test code = MG/DL 8.7-9.7 CA) UNABLE TO DRAW BLOOD, REASON: CBNNOTIFIED PATIENT CARE STAFF: REMEDIOS 07/24/20 AT 1957 BY Audra Anderson An NO GREEN TOP WERE SENT.NOTIFIED DOROTA HIGHTOWER AT 2040 [id number] 21:09:00 Test Item Value Reference Range Interpretation Comments MAGNESIUM (test code = MAG) MG/DL 1.6-2.3 UNABLE TO DRAW BLOOD, REASON: CBNNOTIFIED PATIENT CARE STAFF: REMEDIOS 07/24/20 AT 1957 BY Audra Anderson An NO GREEN TOP WERE SENT.NOTIFIED DOROTA HIGHTOWER AT 2040 BASIC METABOLIC [id number] 21:07:00 Test Item Value Reference Range Interpretation Comments SODIUM (test code = NA) 141 MMOL/L 137-145 N POTASSIUM (test code = K) 3.6 MMOL/L 3.5-5.1 N CHLORIDE (test code = CL) 110 MMOL/L 98-107 H CARBON DIOXIDE (test code = CO2) MMOL/L 22-30 GLUCOSE (test code = GLU) MG/DL 74-106 BLOOD UREA NITROGEN (test code = MG/DL 9-20 BUN) GLOMERULAR FILTRATION RATE (test code = GFR) CREATININE (test code = CREAT) MG/DL 0.66-1.25 CALCIUM (test code = CA) MG/DL 8.7-9.7 UNABLE TO DRAW BLOOD, REASON: CBNNOTIFIED PATIENT CARE STAFF: REMEDIOS 07/24/20 AT 1957 BY Audra Anderson An NO GREEN TOP WERE SENT.NOTIFIED DOROTA HIGHTOWER AT 2040 [id number] 21:07:00 Test Item Value Reference Range Interpretation Comments MAGNESIUM (test code = MAG) MG/DL 1.6-2.3 UNABLE TO DRAW BLOOD, REASON: CBNNOTIFIED PATIENT CARE STAFF: REMEDIOS 07/24/20 AT 1957 BY Audra Anderson An NO GREEN TOP WERE SENT.NOTIFIED DOROTA HIGHTOWER AT 2040 BASIC METABOLIC [id number] 21:06:00 Test Item Value Reference Range Interpretation Comments SODIUM (test code = NA) 141 MMOL/L 137-145 N POTASSIUM (test code = K) MMOL/L 3.5-5.1 CHLORIDE (test code = CL) 110 MMOL/L 98-107 H CARBON DIOXIDE (test code = CO2) MMOL/L 22-30 GLUCOSE (test code = GLU) MG/DL 74-106 BLOOD UREA NITROGEN (test code = MG/DL 9-20 BUN) GLOMERULAR FILTRATION RATE (test code = GFR) CREATININE (test code = CREAT) MG/DL 0.66-1.25 CALCIUM (test code = CA) MG/DL 8.7-9.7 UNABLE TO DRAW BLOOD, REASON: CBNNOTIFIED PATIENT CARE STAFF: REMEDIOS 07/24/20 AT 1957 BY Audra Anderson An NO GREEN TOP WERE SENT.NOTIFIED DOROTA HIGHTOWER AT 2040 [id number] 21:06:00 Test Item Value Reference Range Interpretation Comments MAGNESIUM (test code = MAG) MG/DL 1.6-2.3 UNABLE TO DRAW BLOOD, REASON: CBNNOTIFIED PATIENT CARE STAFF: REMEDIOS 07/24/20 AT 1957 BY Audra Anderson An NO GREEN TOP WERE SENT.NOTIFIED DOROTA HIGHTOWER AT 2040 LACTIC [id number] 21:06:00 Test Item Value Reference Range Interpretation Comments LACTIC ACID (test 8.5 MMOL/L 0.7-2.1 HH CALLED TO CLEMENT Cabrera& code = LACT) READBACK ON AT 2106 BY Lyle Chambers UNABLE TO DRAW BLOOD, REASON: CBNNOTIFIED PATIENT CARE STAFF: REMEDIOS 07/24/20 AT 1958 BY Audra Anderson AnPROTHROMBIN [id number] 21:01:00 Test Item Value Reference Range Interpretation Comments PROTHROMBIN TIME 17.8 SECONDS 9.4-12.5 H PATIENT (test code = PTP) INTERNATIONAL NORMAL 1.6 The INR is to be RATIO (test code = used only for INR) monitoring oral anticoagulantth erap y. INDICATION I NR VALUE ---- ---- ---- -------1. Prophylaxis, de ep venous thrombos is, including high risk surgery. 2.0 - 3.0 2. Prophylaxis, deep venous thrombosis, hip surgery, treatm ent for deep venous thrombosis or pulmonary prevention of systemic emboli sm in patients wit h valvular heart disease, atrial fibrillation, tissue heart va lve, or acute myocar dial infarction. 2.0 - 3.0 3. Handstitching Machine Collar Feller al prosthesis hear t valves, recurre nt systemic emboli sm. 3.0 - 4.5 PTT [id number] 21:01:00 Test Item Value Reference Range Interpretation Comments PTT ACTIVATED (test code = APTT) 38.9 SECONDS 25.1-36.5 H CBC W/AUTO [id number] 20:56:00 Test Item Value Reference Range Interpretation Comments WHITE BLOOD CELL (test code = 21.9 K/MM3 3.8-9.8 H WBC) RED BLOOD CELL (test code = 3.35 M/MM3 3.95-5.67 L RBC) HEMOGLOBIN (test code = HGB) 10.4 G/DL 12.4-16.7 L HEMATOCRIT (test code = HCT) 32.6 % 35.9-49.5 L MEAN CELL VOLUME (test code = 97 fL 81.7-96.1 H MCV) MEAN CELL HGB (test code = MCH) 31.0 pg 27.6-33.2 N MEAN CELL HGB CONCETRATION 31.9 % 32.9-35.5 L (test code = MCHC) RED CELL DISTRIBUTION WIDTH 15.7 % 12.1-15.2 H (test code = RDW) PLATELET COUNT (test code = 180 K/MM3 129-368 N PLT) MEAN PLATELET VOLUME (test code 9.0 fl 7.4-10.4 N = MPV) NEUTROPHIL % (test code = NT%) 86.4 % 43-75 H IMMATURE GRANULOCYTE % (test 1.5 % 0.0-2.0 N code = IG%) LYMPHOCYTE % (test code = LY%) 2.4 % 14-44 L MONOCYTE % (test code = MO%) 9.5 % 4-13 N EOSINOPHIL % (test code = EO%) 0.0 % 0-6 N BASOPHIL % (test code = BA%) 0.2 % 0-2 N NUCLEATED RBC % (test code = 0.0 % 0-1.0 N NRBC%) NEUTROPHIL # (test code = NT#) 18.91 K/mm3 2.0-7.6 H IMMATURE GRANULOCYTE # (test 0.32 x10 3/uL 0-0.03 H code = IG#) LYMPHOCYTE # (test code = LY#) 0.52 K/mm3 1.0-3.8 L MONOCYTE # (test code = MO#) 2.08 K/mm3 0.1-0.8 H EOSINOPHIL # (test code = EO#) 0.01 K/mm3 0.0-0.2 N BASOPHIL # (test code = BA#) 0.04 K/mm3 0.0-0.2 N NUCLEATED RBC # (test code = 0.00 K/mm3 0.0-0.1 N NRBC#) FLUID [id number] 20:45:00 Test Item Value Reference Range Interpretation Comments FLUID PH (test code = PHFL) 5.0-14.0 PERICARDIAL FLUIDFLUID [id number] 20:45:00 Test Item Value Reference Range Interpretation Comments FLUID AMYLASE 53 UNITS/L Reference inte rvals and other (test code = method AMYFL) performancespec ifications have not been establ ished for this test. Thetest r esult should be integrated into the clinical contextfor inte rpretation. PERICARDIAL FLUIDBODY FLUID [id number] 20:45:00 Test Item Value Reference Range Interpretation Comments BODY FLUID 2.7 G/DL Reference inter vals and other ALBUMIN (test method code = ALBF) performancespec ifications have not been establ ished for this test. Thetest r esult should be integrated into the clinical contextfor inte rpretation. PERICARDIAL FLUIDPERICARDIAL FLD CELL [id number] 20:45:00 Test Item Value Reference Range Interpretation Comments DILUENT CHECK FOR CELL CT CLEAR & pH NEUTRAL CLEAR,pH=7 (test code = DILUENT) PERICARDIAL FLD COLOR RED COLORLESS (test code = COLPC) PERICARDIAL FLD APPEARANCE BLOODY CLEAR (test code = APPPC) PERICARDIAL FLD WBC (test 7333 #/MM3 code = WBCPC) PERICARDIAL FLD RBC (test 4501264 /MM3 0-0 H code = RBCPC) PERICARDIAL FLUIDPERICARDIAL FLD [id number] 20:45:00 Test Item Value Reference Range Interpretation Comments PERICARDIAL FLD GLUCOSE (test code 172 MG/DL = GLUPC) PERICARDIAL FLUIDPERICARDIAL FLD TOTAL [id number] 20:45:00 Test Item Value Reference Range Interpretation Comments PERICARDIAL FLD TOTAL PROTEIN (test 4.6 G/DL code = PROTPC) PERICARDIAL FLUIDPERICARDIAL FLD [id number] 20:45:00 Test Item Value Reference Range Interpretation Comments PERICARDIAL FLD LDH (test code = 964 UNITS/L LDHPC) PERICARDIAL FLUIDGLUCOSE BEDSIDE [id number] 20:09:00 Test Item Value Reference Range Interpretation Comments GLUCOSE BEDSIDE TESTING (test code 246 MG/DL 60-99 H = GLUBED) FLUID [id number] 19:58:00 Test Item Value Reference Range Interpretation Comments FLUID PH (test code = PHFL) 5.0-14.0 PERICARDIAL FLUIDFLUID [id number] 19:58:00 Test Item Value Reference Range Interpretation Comments FLUID AMYLASE 53 UNITS/L Reference inte rvals and other (test code = method AMYFL) performancespec ifications have not been establ ished for this test. Thetest r esult should be integrated into the clinical contextfor inte rpretation. PERICARDIAL FLUIDBODY FLUID [id number] 19:58:00 Test Item Value Reference Range Interpretation Comments BODY FLUID 2.7 G/DL Reference inter vals and other ALBUMIN (test method code = ALBF) performancespec ifications have not been establ ished for this test. Thetest r esult should be integrated into the clinical contextfor inte rpretation. PERICARDIAL FLUIDPERICARDIAL FLD CELL [id number] 19:58:00 Test Item Value Reference Range Interpretation Comments DILUENT CHECK FOR CELL CT CLEAR & pH NEUTRAL CLEAR,pH=7 (test code = DILUENT) PERICARDIAL FLD COLOR RED COLORLESS (test code = COLPC) PERICARDIAL FLD APPEARANCE BLOODY CLEAR (test code = APPPC) PERICARDIAL FLD WBC (test #/MM3 code = WBCPC) PERICARDIAL FLD RBC (test 1452705 /MM3 0-0 H code = RBCPC) PERICARDIAL FLUIDPERICARDIAL FLD [id number] 19:58:00 Test Item Value Reference Range Interpretation Comments PERICARDIAL FLD GLUCOSE (test code 172 MG/DL = GLUPC) PERICARDIAL FLUIDPERICARDIAL FLD TOTAL [id number] 19:58:00 Test Item Value Reference Range Interpretation Comments PERICARDIAL FLD TOTAL PROTEIN (test 4.6 G/DL code = PROTPC) PERICARDIAL FLUIDPERICARDIAL FLD [id number] 19:58:00 Test Item Value Reference Range Interpretation Comments PERICARDIAL FLD LDH (test code = 964 UNITS/L LDHPC) PERICARDIAL FLUIDARTERIAL BLOOD [id number] 19:41:00 Test Item Value Reference Range Interpretation Comments ARTERIAL BLOOD GAS PH 7.01 mmHg 7.35-7.45 LL (test code = PHA) ARTERIAL BLOOD GAS 41.7 mmHg 35.0-45.0 N PCO2 (test code = PCO2A) ARTERIAL BLOOD GAS PO2 197.8 mmol/L 80.0-100.0 H (test code = PO2A) BICARBONATE TOTAL HCO3 10.3 mmol/L 20.0-26.0 L (test code = HCO3) BASE EXCESS (test code -20.4 mmol/L -3.0-3.0 L = MOON) ABG O2 SATURATION 98.7 % 95.0-100.0 N All critic al values (test code = SATA) report to and readback by DR MARTIN by DELMY YADAV at 07/24/2020 6:36:00 PM ABG DELIVERY (test VENT code = SILAS) ABG VENT MODE (test A/C code = MODEA) ABG VENT RESP RATE 18.0 /MIN (test code = RRA) ABG TIDAL VOLUME (test 400 ml code = TVA) ABG PEEP (test code = 5.0 cmH2O PEEPA) ABG TEMPERATURE (test 37.0 C >37 code = TEMPA) ABG SITE (test code = AL SITEA) ALLENS TEST (test code NA CHECK = ALLENS) FIO2 (test code = 70 % COHBGFFIO2) PaO2/[id number] 19:41:00 Test Item Value Reference Range Interpretation Comments PaO2/FiO2 (test code = [id number]) mm/Hg ARTERIAL BLOOD [id number] 19:41:00 Test Item Value Reference Range Interpretation Comments ARTERIAL BLOOD GAS PH 7.01 mmHg 7.35-7.45 LL (test code = PHA) ARTERIAL BLOOD GAS 41.7 mmHg 35.0-45.0 N PCO2 (test code = PCO2A) ARTERIAL BLOOD GAS PO2 197.8 mmol/L 80.0-100.0 H (test code = PO2A) BICARBONATE TOTAL HCO3 10.3 mmol/L 20.0-26.0 L (test code = HCO3) BASE EXCESS (test code -20.4 mmol/L -3.0-3.0 L = MOON) ABG O2 SATURATION 98.7 % 95.0-100.0 N All critic al values (test code = SATA) report to and readback by DR MARTIN by DELMY YADAV at 07/24/2020 6:36:00 PM ABG DELIVERY (test VENT code = SILAS) ABG VENT MODE (test A/C code = MODEA) ABG VENT RESP RATE 18.0 /MIN (test code = RRA) ABG TIDAL VOLUME (test 400 ml code = TVA) ABG PEEP (test code = 5.0 cmH2O PEEPA) ABG TEMPERATURE (test 37.0 C >37 code = TEMPA) ABG SITE (test code = AL SITEA) ALLENS TEST (test code NA CHECK = ALLENS) FIO2 (test code = 70 % COHBGFFIO2) PaO2/[id number] 19:41:00 Test Item Value Reference Range Interpretation Comments PaO2/FiO2 (test code = [id number]) 282.57 mm/Hg PROTHROMBIN [id number] 18:50:00 Test Item Value Reference Range Interpretation Comments PROTHROMBIN TIME 21.2 SECONDS 9.4-12.5 H PATIENT (test code = PTP) INTERNATIONAL NORMAL 1.9 The INR is to be RATIO (test code = used only for INR) monitoring oral anticoagulantth erap y. INDICATION INR VALUE ---- ---- ---- -------1. Prophylaxis, de ep venous thrombos is, including high risk surgery. 2.0 - 3.0 2. Prophylaxis, deep venous thrombosis, hip surgery, treatm ent for deep venous thrombosis or pulmonary prevention of systemic emboli sm in patients wit h valvular heart disease, atrial fibrillation, tissue heart va lve, or acute myocar dial infarction. 2.0 - 3.0 3. Handstitching Machine Collar Feller al prosthesis hear t valves, recurre nt systemic emboli sm. 3.0 - 4.5 PTT [id number] 18:50:00 Test Item Value Reference Range Interpretation Comments PTT ACTIVATED (test 96.7 SECONDS 25.1-36.5 HH CALLED Abhishek Durbni& code = APTT) READBACK ON AT 1850 BY Sadaf Bingham LACTIC [id number] 18:50:00 Test Item Value Reference Range Interpretation Comments LACTIC ACID (test 6.1 MMOL/L 0.7-2.1 HH CALLED AUREA Durbin& code = LACT) READBACK ON AT 1850 BY Lyle Chambers BASIC METABOLIC [id number] 18:44:00 Test Item Value Reference Range Interpretation Comments SODIUM (test code = 139 MMOL/L 137-145 N NA) POTASSIUM (test code = 3.8 MMOL/L 3.5-5.1 N K) CHLORIDE (test code = 113 MMOL/L 98-107 H CL) CARBON DIOXIDE (test 12 MMOL/L 22-30 L code = CO2) ANION GAP (test code = 18 MMOL/L 14-24 N GAP) GLUCOSE (test code = 262 MG/DL 74-106 H GLU) BLOOD UREA NITROGEN 14 MG/DL 9-20 N (test code = BUN) GLOMERULAR FILTRATION > 60 Report ing units: RATE (test code = GFR) ml/mi n/1.73 m2 (Modified MDRD Formula)Referen ce Range: > or = 6 0 ml/min/1.73 m2 CREATININE (test code 0.90 MG/DL 0.66-1.25 N = CREAT) CALCIUM (test code = 6.3 MG/DL 8.4-10.2 LL CALLED TO STEPHIE PALMA.& CA) READBACK ON AT 1844 BY Lyle Chambers HEPATIC FUNCTION [id number] 18:44:00 Test Item Value Reference Range Interpretation Comments TOTAL PROTEIN (test 4.2 G/DL 6.2-7.6 L code = PROT) ALBUMIN (test code = 2.5 G/DL 3.5-5.0 L ALB) BILIRUBIN TOTAL 1.5 MG/DL 0.2-1.3 H Eltrombopag (test code = BILT) Interfere nce for Vitros Product TBil, BuBc: ======= ======= ======A ssay Eltrombopa g Analyte/ Max Ob served Avg. Bias Concentration Concentration Concentration== ======= ======= ======= =======TBil 7mg /dl TBil/ 1.2mg/dl +0.23mg.dl +0.20mg/dlBuBc 3.5mg/dl Bu/0.8 mg/dl +0.25mg/dl +0.24mg/dlBuBc 7 mg/dl Bu/14.2mg/dl +0.38mg/dl +0.25mg/dlBuBc 5mg/dl Bc/0mg/dl +0.25 mg/dl +0.15mg/dlBuBc 3.5mg/dl Bc/2.8 mg/dl +0.25mg/dl +0.2 3mg/dl BILIRUBIN DIRECT 0.4 MG/DL 0.0-0.3 H Eltrombopag (test code = BILD) Interfere nce for Vitros Product TBil, BuBc: ======= ======= ======A ssay Eltrombopa g Analyte/ Max Ob served Avg. Bias Concentration Concentration Concentration== ======= ======= ======= =======TBil 7mg /dl TBil/ 1.2mg/dl +0.23mg.dl +0.20mg/dlBuBc 3.5mg/dl Bu/0.8 mg/dl +0.25mg/dl +0.24mg/dlBuBc 7 mg/dl Bu/14.2mg/dl +0.38mg/dl +0.25mg/dlBuBc 5mg/dl Bc/0mg/dl +0.25 mg/dl +0.15mg/dlBuBc 3.5mg/dl Bc/2.8 mg/dl +0.25mg/dl +0.2 3mg/dl SGOT/AST (test code 105 UNITS/L 17-59 H = AST) SGPT/ALT (test code 79 UNITS/L <50 = ALT) ALKALINE PHOSPHATASE 25 UNITS/L 38-126 L (test code = ALKP) BASIC METABOLIC [id number] 18:42:00 Test Item Value Reference Range Interpretation Comments SODIUM (test code = 139 MMOL/L 137-145 N NA) POTASSIUM (test code = 3.8 MMOL/L 3.5-5.1 N K) CHLORIDE (test code = 113 MMOL/L 98-107 H CL) CARBON DIOXIDE (test MMOL/L 22-30 code = CO2) GLUCOSE (test code = MG/DL 74-106 GLU) BLOOD UREA NITROGEN MG/DL 9-20 (test code = BUN) GLOMERULAR FILTRATION > 60 Report ing units: RATE (test code = GFR) ml/mi n/1.73 m2 (Modified MDRD Formula)Referen ce Range: > or = 6 0 ml/min/1.73 m2 CREATININE (test code 0.90 MG/DL 0.66-1.25 N = CREAT) CALCIUM (test code = MG/DL 8.7-9.7 CA) HEPATIC FUNCTION [id number] 18:42:00 Test Item Value Reference Range Interpretation Comments TOTAL PROTEIN (test G/DL 6.2-7.6 code = PROT) ALBUMIN (test code = 2.5 G/DL 3.5-5.0 L ALB) BILIRUBIN TOTAL (test MG/DL 0.2-1.3 code = BILT) BILIRUBIN DIRECT 0.4 MG/DL 0.0-0.3 H Eltrombopag (test code = BILD) Interfere nce for Vitros Product TBil, BuBc: ======== ======== ====Assa y Eltrombopag A nalyte/ Max Observed Av g. Bias Concentration Concentration Concentration== ======== ======== ======== ====TBil 7mg/dl TBil/ 1.2mg/dl +0.23m g.dl +0.20mg/dlBuBc 3.5mg/dl Bu/0.8mg/dl +0. 25mg/dl +0.24mg/dlBuBc 7 mg/dl Bu/14.2mg/dl +0 .38mg/dl +0.25mg/dlBuBc 5mg/dl Bc/0mg/dl +0.25 mg/dl +0.15mg/dlBuBc 3.5mg/dl Bc/2.8mg/dl +0. 25mg/dl +0.23mg/dl SGOT/AST (test code = UNITS/L 15-37 AST) SGPT/ALT (test code = UNITS/L <50 ALT) ALKALINE PHOSPHATASE UNITS/L 38-126 (test code = ALKP) BASIC METABOLIC [id number] 18:42:00 Test Item Value Reference Range Interpretation Comments SODIUM (test code = 139 MMOL/L 137-145 N NA) POTASSIUM (test code = 3.8 MMOL/L 3.5-5.1 N K) CHLORIDE (test code = 113 MMOL/L 98-107 H CL) CARBON DIOXIDE (test 12 MMOL/L 22-30 L code = CO2) ANION GAP (test code = 18 MMOL/L 14-24 N GAP) GLUCOSE (test code = MG/DL 74-106 GLU) BLOOD UREA NITROGEN MG/DL 9-20 (test code = BUN) GLOMERULAR FILTRATION > 60 Report ing units: RATE (test code = GFR) ml/mi n/1.73 m2 (Modified MDRD Formula)Referen ce Range: > or = 6 0 ml/min/1.73 m2 CREATININE (test code 0.90 MG/DL 0.66-1.25 N = CREAT) CALCIUM (test code = MG/DL 8.7-9.7 CA) HEPATIC FUNCTION [id number] 18:42:00 Test Item Value Reference Range Interpretation Comments TOTAL PROTEIN (test G/DL 6.2-7.6 code = PROT) ALBUMIN (test code = 2.5 G/DL 3.5-5.0 L ALB) BILIRUBIN TOTAL (test 1.5 MG/DL 0.2-1.3 H Eltrom bopag code = BILT) Interference fo r Vitros Product TBil, BuBc: ======== ======== ====Assa y Eltrombopag A nalyte/ Max Observed Av g. Bias Concentration Concentration Concentration== ======== ======== ======== ====TBil 7mg/dl TBil/ 1.2mg/dl +0.23m g.dl +0.20mg/dlBuBc 3.5mg/dl Bu/0.8mg/dl +0. 25mg/dl +0.24mg/dlBuBc 7 mg/dl Bu/14.2mg/dl +0 .38mg/dl +0.25mg/dlBuBc 5mg/dl Bc/0mg/dl +0.25 mg/dl +0.15mg/dlBuBc 3.5mg/dl Bc/2.8mg/dl +0. 25mg/dl +0.23mg/dl BILIRUBIN DIRECT 0.4 MG/DL 0.0-0.3 H Eltrombopag (test code = BILD) Interfere nce for Vitros Product TBil, BuBc: ======== ======== ====Assa y Eltrombopag A nalyte/ Max Observed Av g. Bias Concentration Concentration Concentration== ======== ======== ======== ====TBil 7mg/dl TBil/ 1.2mg/dl +0.23m g.dl +0.20mg/dlBuBc 3.5mg/dl Bu/0.8mg/dl +0. 25mg/dl +0.24mg/dlBuBc 7 mg/dl Bu/14.2mg/dl +0 .38mg/dl +0.25mg/dlBuBc 5mg/dl Bc/0mg/dl +0.25 mg/dl +0.15mg/dlBuBc 3.5mg/dl Bc/2.8mg/dl +0 .25mg/dl +0.23mg/dl SGOT/AST (test code = UNITS/L 15-37 AST) SGPT/ALT (test code = UNITS/L <50 ALT) ALKALINE PHOSPHATASE UNITS/L 38-126 (test code = ALKP) BASIC METABOLIC [id number] 18:42:00 Test Item Value Reference Range Interpretation Comments SODIUM (test code = 139 MMOL/L 137-145 N NA) POTASSIUM (test code = 3.8 MMOL/L 3.5-5.1 N K) CHLORIDE (test code = 113 MMOL/L 98-107 H CL) CARBON DIOXIDE (test 12 MMOL/L 22-30 L code = CO2) ANION GAP (test code = 18 MMOL/L 14-24 N GAP) GLUCOSE (test code = MG/DL 74-106 GLU) BLOOD UREA NITROGEN MG/DL 9-20 (test code = BUN) GLOMERULAR FILTRATION > 60 Report ing units: RATE (test code = GFR) ml/mi n/1.73 m2 (Modified MDRD Formula)Referen ce Range: > or = 6 0 ml/min/1.73 m2 CREATININE (test code 0.90 MG/DL 0.66-1.25 N = CREAT) CALCIUM (test code = MG/DL 8.7-9.7 CA) HEPATIC FUNCTION [id number] 18:42:00 Test Item Value Reference Range Interpretation Comments TOTAL PROTEIN (test 4.2 G/DL 6.2-7.6 L code = PROT) ALBUMIN (test code = 2.5 G/DL 3.5-5.0 L ALB) BILIRUBIN TOTAL 1.5 MG/DL 0.2-1.3 H Eltrombopag (test code = BILT) Interfere nce for Vitros Product TBil, BuBc: ======= ======= ======A ssay Eltrombopa g Analyte/ Max Ob served Avg. Bias Concentration Concentration Concentration== ======= ======= ======= =======TBil 7mg /dl TBil/ 1.2mg/dl +0.23mg.dl +0.20mg/dlBuBc 3.5mg/dl Bu/0.8 mg/dl +0.25mg/dl +0.24mg/dlBuBc 7 mg/dl Bu/14.2mg/dl +0.38mg/dl +0.25mg/dlBuBc 5mg/dl Bc/0mg/dl +0.25 mg/dl +0.15mg/dlBuBc 3.5mg/dl Bc/2.8 mg/dl +0.25mg/dl +0.2 3mg/dl BILIRUBIN DIRECT 0.4 MG/DL 0.0-0.3 H Eltrombopag (test code = BILD) Interfere nce for Vitros Product TBil, BuBc: ======= ======= ======A ssay Eltrombopa g Analyte/ Max Ob served Avg. Bias Concentration Concentration Concentration== ======= ======= ======= =======TBil 7mg /dl TBil/ 1.2mg/dl +0.23mg.dl +0.20mg/dlBuBc 3.5mg/dl Bu/0.8 mg/dl +0.25mg/dl +0.24mg/dlBuBc 7 mg/dl Bu/14.2mg/dl +0.38mg/dl +0.25mg/dlBuBc 5mg/dl Bc/0mg/dl +0.25 mg/dl +0.15mg/dlBuBc 3.5mg/dl Bc/2.8 mg/dl +0.25mg/dl +0.2 3mg/dl SGOT/AST (test code 105 UNITS/L 17-59 H = AST) SGPT/ALT (test code UNITS/L <50 = ALT) ALKALINE PHOSPHATASE UNITS/L 38-126 (test code = ALKP) BASIC METABOLIC [id number] 18:40:00 Test Item Value Reference Range Interpretation Comments SODIUM (test code = NA) 139 MMOL/L 137-145 N POTASSIUM (test code = K) 3.8 MMOL/L 3.5-5.1 N CHLORIDE (test code = CL) 113 MMOL/L 98-107 H CARBON DIOXIDE (test code = CO2) MMOL/L 22-30 GLUCOSE (test code = GLU) MG/DL 74-106 BLOOD UREA NITROGEN (test code = MG/DL 9-20 BUN) GLOMERULAR FILTRATION RATE (test code = GFR) CREATININE (test code = CREAT) MG/DL 0.66-1.25 CALCIUM (test code = CA) MG/DL 8.7-9.7 HEPATIC FUNCTION [id number] 18:40:00 Test Item Value Reference Range Interpretation Comments TOTAL PROTEIN (test code = PROT) G/DL 6.2-7.6 ALBUMIN (test code = ALB) 2.5 G/DL 3.5-5.0 L BILIRUBIN TOTAL (test code = BILT) MG/DL 0.2-1.3 BILIRUBIN DIRECT (test code = BILD) MG/DL 0.0-0.3 SGOT/AST (test code = AST) UNITS/L 15-37 SGPT/ALT (test code = ALT) UNITS/L <50 ALKALINE PHOSPHATASE (test code = UNITS/L 38-126 ALKP) BASIC METABOLIC [id number] 18:39:00 Test Item Value Reference Range Interpretation Comments SODIUM (test code = NA) MMOL/L 137-145 POTASSIUM (test code = K) MMOL/L 3.5-5.1 CHLORIDE (test code = CL) 113 MMOL/L 98-107 H CARBON DIOXIDE (test code = CO2) MMOL/L 22-30 GLUCOSE (test code = GLU) MG/DL 74-106 BLOOD UREA NITROGEN (test code = MG/DL 9-20 BUN) GLOMERULAR FILTRATION RATE (test code = GFR) CREATININE (test code = CREAT) MG/DL 0.66-1.25 CALCIUM (test code = CA) MG/DL 8.7-9.7 HEPATIC FUNCTION [id number] 18:39:00 Test Item Value Reference Range Interpretation Comments TOTAL PROTEIN (test code = PROT) G/DL 6.2-7.6 ALBUMIN (test code = ALB) 2.5 G/DL 3.5-5.0 L BILIRUBIN TOTAL (test code = BILT) MG/DL 0.2-1.3 BILIRUBIN DIRECT (test code = BILD) MG/DL 0.0-0.3 SGOT/AST (test code = AST) UNITS/L 15-37 SGPT/ALT (test code = ALT) UNITS/L <50 ALKALINE PHOSPHATASE (test code = UNITS/L 38-126 ALKP) FLUID [id number] 18:39:00 Test Item Value Reference Range Interpretation Comments FLUID PH (test code = PHFL) 5.0-14.0 PERICARDIAL FLUIDFLUID [id number] 18:39:00 Test Item Value Reference Range Interpretation Comments FLUID AMYLASE 53 UNITS/L Reference inte rvals and other (test code = method AMYFL) performancespec ifications have not been establ ished for this test. Thetest r esult should be integrated into the clinical contextfor inte rpretation. PERICARDIAL FLUIDBODY FLUID [id number] 18:39:00 Test Item Value Reference Range Interpretation Comments BODY FLUID 2.7 G/DL Reference inter vals and other ALBUMIN (test method code = ALBF) performancespec ifications have not been establ ished for this test. Thetest r esult should be integrated into the clinical contextfor inte rpretation. PERICARDIAL FLUIDPERICARDIAL FLD CELL [id number] 18:39:00 Test Item Value Reference Range Interpretation Comments DILUENT CHECK FOR CELL CT (test code = CLEAR,pH=7 DILUENT) PERICARDIAL FLD COLOR (test code = COLORLESS COLPC) PERICARDIAL FLD APPEARANCE (test code CLEAR = APPPC) PERICARDIAL FLD WBC (test code = #/MM3 WBCPC) PERICARDIAL FLD RBC (test code = /MM3 0-0 RBCPC) PERICARDIAL FLUIDPERICARDIAL FLD [id number] 18:39:00 Test Item Value Reference Range Interpretation Comments PERICARDIAL FLD GLUCOSE (test code 172 MG/DL = GLUPC) PERICARDIAL FLUIDPERICARDIAL FLD TOTAL [id number] 18:39:00 Test Item Value Reference Range Interpretation Comments PERICARDIAL FLD TOTAL PROTEIN (test 4.6 G/DL code = PROTPC) PERICARDIAL FLUIDPERICARDIAL FLD [id number] 18:39:00 Test Item Value Reference Range Interpretation Comments PERICARDIAL FLD LDH (test code = 964 UNITS/L LDHPC) PERICARDIAL FLUIDBASIC METABOLIC [id number] 18:38:00 Test Item Value Reference Range Interpretation Comments SODIUM (test code = NA) MMOL/L 137-145 POTASSIUM (test code = K) MMOL/L 3.5-5.1 CHLORIDE (test code = CL) 113 MMOL/L 98-107 H CARBON DIOXIDE (test code = CO2) MMOL/L 22-30 GLUCOSE (test code = GLU) MG/DL 74-106 BLOOD UREA NITROGEN (test code = MG/DL 9-20 BUN) GLOMERULAR FILTRATION RATE (test code = GFR) CREATININE (test code = CREAT) MG/DL 0.66-1.25 CALCIUM (test code = CA) MG/DL 8.7-9.7 HEPATIC FUNCTION [id number] 18:38:00 Test Item Value Reference Range Interpretation Comments TOTAL PROTEIN (test code = PROT) G/DL 6.2-7.6 ALBUMIN (test code = ALB) G/DL 3.5-5.0 BILIRUBIN TOTAL (test code = BILT) MG/DL 0.2-1.3 BILIRUBIN DIRECT (test code = BILD) MG/DL 0.0-0.3 SGOT/AST (test code = AST) UNITS/L 15-37 SGPT/ALT (test code = ALT) UNITS/L <50 ALKALINE PHOSPHATASE (test code = UNITS/L 38-126 ALKP) FLUID [id number] 18:38:00 Test Item Value Reference Range Interpretation Comments FLUID PH (test code = PHFL) 5.0-14.0 PERICARDIAL FLUIDFLUID [id number] 18:38:00 Test Item Value Reference Range Interpretation Comments FLUID AMYLASE 53 UNITS/L Reference inte rvals and other (test code = method AMYFL) performancespec ifications have not been establ ished for this test. Thetest r esult should be integrated into the clinical contextfor inte rpretation. PERICARDIAL FLUIDBODY FLUID [id number] 18:38:00 Test Item Value Reference Range Interpretation Comments BODY FLUID 2.7 G/DL Reference inter vals and other ALBUMIN (test method code = ALBF) performancespec ifications have not been establ ished for this test. Thetest r esult should be integrated into the clinical contextfor inte rpretation. PERICARDIAL FLUIDPERICARDIAL FLD CELL [id number] 18:38:00 Test Item Value Reference Range Interpretation Comments DILUENT CHECK FOR CELL CT (test code = CLEAR,pH=7 DILUENT) PERICARDIAL FLD COLOR (test code = COLORLESS COLPC) PERICARDIAL FLD APPEARANCE (test code CLEAR = APPPC) PERICARDIAL FLD WBC (test code = #/MM3 WBCPC) PERICARDIAL FLD RBC (test code = /MM3 0-0 RBCPC) PERICARDIAL FLUIDPERICARDIAL FLD [id number] 18:38:00 Test Item Value Reference Range Interpretation Comments PERICARDIAL FLD GLUCOSE (test code = MG/DL GLUPC) PERICARDIAL FLUIDPERICARDIAL FLD TOTAL [id number] 18:38:00 Test Item Value Reference Range Interpretation Comments PERICARDIAL FLD TOTAL PROTEIN (test 4.6 G/DL code = PROTPC) PERICARDIAL FLUIDPERICARDIAL FLD [id number] 18:38:00 Test Item Value Reference Range Interpretation Comments PERICARDIAL FLD LDH (test code = 964 UNITS/L LDHPC) PERICARDIAL FLUIDFLUID [id number] 18:36:00 Test Item Value Reference Range Interpretation Comments FLUID PH (test code = PHFL) 5.0-14.0 PERICARDIAL FLUIDFLUID [id number] 18:36:00 Test Item Value Reference Range Interpretation Comments FLUID AMYLASE (test code = AMYFL) UNITS/L PERICARDIAL FLUIDBODY FLUID [id number] 18:36:00 Test Item Value Reference Range Interpretation Comments BODY FLUID 2.7 G/DL Reference inter vals and other ALBUMIN (test method code = ALBF) performancespec ifications have not been establ ished for this test. Thetest r esult should be integrated into the clinical contextfor inte rpretation. PERICARDIAL FLUIDPERICARDIAL FLD CELL [id number] 18:36:00 Test Item Value Reference Range Interpretation Comments DILUENT CHECK FOR CELL CT (test code = CLEAR,pH=7 DILUENT) PERICARDIAL FLD COLOR (test code = COLORLESS COLPC) PERICARDIAL FLD APPEARANCE (test code CLEAR = APPPC) PERICARDIAL FLD WBC (test code = #/MM3 WBCPC) PERICARDIAL FLD RBC (test code = /MM3 0-0 RBCPC) PERICARDIAL FLUIDPERICARDIAL FLD [id number] 18:36:00 Test Item Value Reference Range Interpretation Comments PERICARDIAL FLD GLUCOSE (test code = MG/DL GLUPC) PERICARDIAL FLUIDPERICARDIAL FLD TOTAL [id number] 18:36:00 Test Item Value Reference Range Interpretation Comments PERICARDIAL FLD TOTAL PROTEIN (test G/DL code = PROTPC) PERICARDIAL FLUIDPERICARDIAL FLD [id number] 18:36:00 Test Item Value Reference Range Interpretation Comments PERICARDIAL FLD LDH (test code = UNITS/L LDHPC) PERICARDIAL FLUIDCBC W/AUTO [id number] 18:27:00 Test Item Value Reference Range Interpretation Comments WHITE BLOOD CELL (test code = 19.0 K/MM3 3.8-9.8 H WBC) RED BLOOD CELL (test code = 3.62 M/MM3 3.95-5.67 L RBC) HEMOGLOBIN (test code = HGB) 11.1 G/DL 12.4-16.7 L HEMATOCRIT (test code = HCT) 36.4 % 35.9-49.5 N MEAN CELL VOLUME (test code = 101 fL 81.7-96.1 H MCV) MEAN CELL HGB (test code = MCH) 30.7 pg 27.6-33.2 N MEAN CELL HGB CONCETRATION 30.5 % 32.9-35.5 L (test code = MCHC) RED CELL DISTRIBUTION WIDTH 15.4 % 12.1-15.2 H (test code = RDW) PLATELET COUNT (test code = 172 K/MM3 129-368 N PLT) MEAN PLATELET VOLUME (test code 8.9 fl 7.4-10.4 N = MPV) NEUTROPHIL % (test code = NT%) 83.9 % 43-75 H IMMATURE GRANULOCYTE % (test 2.6 % 0.0-2.0 H code = IG%) LYMPHOCYTE % (test code = LY%) 4.9 % 14-44 L MONOCYTE % (test code = MO%) 8.0 % 4-13 N EOSINOPHIL % (test code = EO%) 0.3 % 0-6 N BASOPHIL % (test code = BA%) 0.3 % 0-2 N NUCLEATED RBC % (test code = 0.0 % 0-1.0 N NRBC%) NEUTROPHIL # (test code = NT#) 15.92 K/mm3 2.0-7.6 H IMMATURE GRANULOCYTE # (test 0.50 x10 3/uL 0-0.03 H code = IG#) LYMPHOCYTE # (test code = LY#) 0.94 K/mm3 1.0-3.8 L MONOCYTE # (test code = MO#) 1.52 K/mm3 0.1-0.8 H EOSINOPHIL # (test code = EO#) 0.06 K/mm3 0.0-0.2 N BASOPHIL # (test code = BA#) 0.05 K/mm3 0.0-0.2 N NUCLEATED RBC # (test code = 0.00 K/mm3 0.0-0.1 N NRBC#) - XR CHEST [id number] 18:27:00 [facility] : 1950 Sex: M Patient Name: ALEXIS GAUTHIER Unit No: [id number] EXAMS: CPT CODE: [id number] XR CHEST 1V [id number] Chest Radiograph History: intubation Comparison: July 24, earlier the same day Location: H45 A single frontal view of the chest is submitted. The heart appears unchanged in size. There is mild pulmonary vascular congestion. There is a minimal patchy opacity in the right lung base. The bones appear u nchanged. IMPRESSION: There is mild pulmonary vascular congestion. Minimal patchy opacity right lung base. This could be due to atelectasis or pneumonia. There has been interval intubation. The endotracheal tube terminates at a satisfactory level. There has been interval placement of an nasogastric tube, terminating in the fundus of the stomach. The sidehole of the nasogastric tube resides in the distal esophagus and the nasogastric tube should be advanced about 10 cm. at 1827 Reported and signed by: Pawan Nava MD CC: Cedric Ledbetter MD; Oniel Martin MD; Ryan Lambert Technologist: Elin Avalos RT(R) Transcrpt Date/Tm/Trnsp: 07/24/2020 (1826) t.SDR.PMT Orig Print D/T: S: 07/24/2020 (1829) [facility] NAME: BRIGIDO GAUTHIER [id number] PHYS: [place] [address] : 1950 AGE: 70 SEX: MACCT NO: [id number] LOC: [id number].[id number] PHONE #: [phone] EXAM DATE: 07/24/2020 STATUS: ADM IN FAX #: [phone] RADIOLOGY NO: PAGE 1 Signed ReportPROTHROMBIN [id number] 18:20:00 Test Item Value Reference Range Interpretation Comments PROTHROMBIN TIME 20.8 SECONDS 9.4-12.5 H PATIENT (test code = PTP) INTERNATIONAL NORMAL 1.9 The INR is to be RATIO (test code = used only for INR) monitoring oral anticoagulantth erap y. INDICATION INR VALUE ---- ---- ---- -------1. Prophylaxis, de ep venous thrombos is, including high risk surgery. 2.0 - 3.0 2. Prophylaxis, deep venous thrombosis, hip surgery, treatm ent for deep venous thrombosis or pulmonary prevention of systemic emboli sm in patients wit h valvular heart disease, atrial fibrillation, tissue heart va lve, or acute myocar dial infarction. 2.0 - 3.0 3. Handstitching Machine [employer]eller al prosthesis hear t valves, recurre nt systemic emboli sm. 3.0 - 4.5 PTT [id number] 18:20:00 Test Item Value Reference Range Interpretation Comments PTT ACTIVATED (test 97.5 SECONDS 25.1-36.5 HH CALLED Abhishek Durbin& code = APTT) READBACK ON AT 1820 BY Sadaf Bingham [id number] 18:20:00 Test Item Value Reference Range Interpretation Comments FIBRINOGEN (test code = FIB) 166 mg/dL 200-393 L BASIC METABOLIC [id number] 18:19:00 Test Item Value Reference Range Interpretation Comments SODIUM (test code = 140 MMOL/L 137-145 N NA) POTASSIUM (test code = 3.6 MMOL/L 3.5-5.1 N K) CHLORIDE (test code = 114 MMOL/L 98-107 H CL) CARBON DIOXIDE (test 12 MMOL/L 22-30 L code = CO2) ANION GAP (test code = 18 MMOL/L 14-24 N GAP) GLUCOSE (test code = 282 MG/DL 74-106 H GLU) BLOOD UREA NITROGEN 15 MG/DL 9-20 N (test code = BUN) GLOMERULAR FILTRATION > 60 Report ing units: RATE (test code = GFR) ml/mi n/1.73 m2 (Modified MDRD Formula)Referen ce Range: > or = 6 0 ml/min/1.73 m2 CREATININE (test code 0.90 MG/DL 0.66-1.25 N = CREAT) CALCIUM (test code = 6.1 MG/DL 8.4-10.2 LL CALLED TO HYUN Durbin& CA) READBACK ON AT 1819 BY Lyle Chambers CBC W/AUTO [id number] 18:15:00 Test Item Value Reference Range Interpretation Comments WHITE BLOOD CELL (test code = 15.0 K/MM3 3.8-9.8 H WBC) RED BLOOD CELL (test code = 3.68 M/MM3 3.95-5.67 L RBC) HEMOGLOBIN (test code = HGB) 11.4 G/DL 12.4-16.7 L HEMATOCRIT (test code = HCT) 36.8 % 35.9-49.5 N MEAN CELL VOLUME (test code = 100 fL 81.7-96.1 H MCV) MEAN CELL HGB (test code = MCH) 31.0 pg 27.6-33.2 N MEAN CELL HGB CONCETRATION 31.0 % 32.9-35.5 L (test code = MCHC) RED CELL DISTRIBUTION WIDTH 15.3 % 12.1-15.2 H (test code = RDW) PLATELET COUNT (test code = 178 K/MM3 129-368 PLT) MEAN PLATELET VOLUME (test code 8.8 fl 7.4-10.4 N = MPV) NEUTROPHIL % (test code = NT%) 83.1 % 43-75 H IMMATURE GRANULOCYTE % (test 2.6 % 0.0-2.0 H code = IG%) LYMPHOCYTE % (test code = LY%) 5.9 % 14-44 L MONOCYTE % (test code = MO%) 7.9 % 4-13 N EOSINOPHIL % (test code = EO%) 0.2 % 0-6 N BASOPHIL % (test code = BA%) 0.3 % 0-2 N NUCLEATED RBC % (test code = 0.0 % 0-1.0 N NRBC%) NEUTROPHIL # (test code = NT#) 12.49 K/mm3 2.0-7.6 H IMMATURE GRANULOCYTE # (test 0.39 x10 3/uL 0-0.03 H code = IG#) LYMPHOCYTE # (test code = LY#) 0.88 K/mm3 1.0-3.8 L MONOCYTE # (test code = MO#) 1.19 K/mm3 0.1-0.8 H EOSINOPHIL # (test code = EO#) 0.03 K/mm3 0.0-0.2 N BASOPHIL # (test code = BA#) 0.05 K/mm3 0.0-0.2 N NUCLEATED RBC # (test code = 0.00 K/mm3 0.0-0.1 N NRBC#) BASIC METABOLIC [id number] 18:08:00 Test Item Value Reference Range Interpretation Comments SODIUM (test code = 140 MMOL/L 137-145 N NA) POTASSIUM (test code = 3.6 MMOL/L 3.5-5.1 N K) CHLORIDE (test code = 114 MMOL/L 98-107 H CL) CARBON DIOXIDE (test MMOL/L 22-30 code = CO2) GLUCOSE (test code = MG/DL 74-106 GLU) BLOOD UREA NITROGEN MG/DL 9-20 (test code = BUN) GLOMERULAR FILTRATION > 60 Report ing units: RATE (test code = GFR) ml/mi n/1.73 m2 (Modified MDRD Formula)Referen ce Range: > or = 6 0 ml/min/1.73 m2 CREATININE (test code 0.90 MG/DL 0.66-1.25 N = CREAT) CALCIUM (test code = MG/DL 8.7-9.7 CA) BASIC METABOLIC [id number] 18:05:00 Test Item Value Reference Range Interpretation Comments SODIUM (test code = NA) 140 MMOL/L 137-145 N POTASSIUM (test code = K) 3.6 MMOL/L 3.5-5.1 N CHLORIDE (test code = CL) 114 MMOL/L 98-107 H CARBON DIOXIDE (test code = CO2) MMOL/L 22-30 GLUCOSE (test code = GLU) MG/DL 74-106 BLOOD UREA NITROGEN (test code = MG/DL 9-20 BUN) GLOMERULAR FILTRATION RATE (test code = GFR) CREATININE (test code = CREAT) MG/DL 0.66-1.25 CALCIUM (test code = CA) MG/DL 8.7-9.7 BASIC METABOLIC [id number] 18:04:00 Test Item Value Reference Range Interpretation Comments SODIUM (test code = NA) MMOL/L 137-145 POTASSIUM (test code = K) MMOL/L 3.5-5.1 CHLORIDE (test code = CL) 114 MMOL/L 98-107 H CARBON DIOXIDE (test code = CO2) MMOL/L 22-30 GLUCOSE (test code = GLU) MG/DL 74-106 BLOOD UREA NITROGEN (test code = MG/DL 9-20 BUN) GLOMERULAR FILTRATION RATE (test code = GFR) CREATININE (test code = CREAT) MG/DL 0.66-1.25 CALCIUM (test code = CA) MG/DL 8.7-9.7 [id number] 17:22:00 Test Item Value Reference Range Interpretation Comments ACT-ISTAT (test code = ACTI) 329 SEC 74-137 H [id number] 17:22:00 Test Item Value Reference Range Interpretation Comments ACT-ISTAT (test code = ACTI) 296 SEC 74-137 H [id number] 17:22:00 Test Item Value Reference Range Interpretation Comments ACT-ISTAT (test code = ACTI) 312 SEC 74-137 H CBC W/AUTO [id number] 16:25:00 Test Item Value Reference Range Interpretation Comments WHITE BLOOD CELL (test code = 11.2 K/MM3 3.8-9.8 H WBC) RED BLOOD CELL (test code = 3.94 M/MM3 3.95-5.67 L RBC) HEMOGLOBIN (test code = HGB) 12.5 G/DL 12.4-16.7 HEMATOCRIT (test code = HCT) 39.0 % 35.9-49.5 MEAN CELL VOLUME (test code = 99 fL 81.7-96.1 H MCV) MEAN CELL HGB (test code = MCH) 31.7 pg 27.6-33.2 N MEAN CELL HGB CONCETRATION 32.1 % 32.9-35.5 L (test code = MCHC) RED CELL DISTRIBUTION WIDTH 13.5 % 12.1-15.2 N (test code = RDW) PLATELET COUNT (test code = 267 K/MM3 129-368 N PLT) MEAN PLATELET VOLUME (test code 9.6 fl 7.4-10.4 N = MPV) NEUTROPHIL % (test code = NT%) 93.7 % 43-75 H IMMATURE GRANULOCYTE % (test 0.9 % 0.0-2.0 N code = IG%) LYMPHOCYTE % (test code = LY%) 3.7 % 14-44 L MONOCYTE % (test code = MO%) 1.1 % 4-13 L EOSINOPHIL % (test code = EO%) 0.2 % 0-6 N BASOPHIL % (test code = BA%) 0.4 % 0-2 N NUCLEATED RBC % (test code = 0.0 % 0-1.0 N NRBC%) NEUTROPHIL # (test code = NT#) 10.51 K/mm3 2.0-7.6 H IMMATURE GRANULOCYTE # (test 0.10 x10 3/uL 0-0.03 H code = IG#) LYMPHOCYTE # (test code = LY#) 0.42 K/mm3 1.0-3.8 L MONOCYTE # (test code = MO#) 0.12 K/mm3 0.1-0.8 N EOSINOPHIL # (test code = EO#) 0.02 K/mm3 0.0-0.2 N BASOPHIL # (test code = BA#) 0.04 K/mm3 0.0-0.2 N NUCLEATED RBC # (test code = 0.00 K/mm3 0.0-0.1 N NRBC#) BASIC METABOLIC [id number] 14:54:00 Test Item Value Reference Range Interpretation Comments SODIUM (test code = 136 MMOL/L 137-145 L NA) POTASSIUM (test code = 4.2 MMOL/L 3.5-5.1 N K) CHLORIDE (test code = 112 MMOL/L 98-107 H CL) CARBON DIOXIDE (test 15 MMOL/L 22-30 L code = CO2) ANION GAP (test code = 13 MMOL/L 14-24 L GAP) GLUCOSE (test code = 242 MG/DL 74-106 H GLU) BLOOD UREA NITROGEN 15 MG/DL 9-20 N (test code = BUN) GLOMERULAR FILTRATION > 60 Report ing units: RATE (test code = GFR) ml/mi n/1.73 m2 (Modified MDRD Formula)Referen ce Range: > or = 6 0 ml/min/1.73 m2 CREATININE (test code 0.80 MG/DL 0.66-1.25 = CREAT) CALCIUM (test code = 7.2 MG/DL 8.4-10.2 L CA) BASIC METABOLIC [id number] 14:45:00 Test Item Value Reference Range Interpretation Comments SODIUM (test code = NA) 136 MMOL/L 137-145 L POTASSIUM (test code = K) 4.2 MMOL/L 3.5-5.1 N CHLORIDE (test code = CL) 112 MMOL/L 98-107 H CARBON DIOXIDE (test code = CO2) MMOL/L 22-30 GLUCOSE (test code = GLU) MG/DL 74-106 BLOOD UREA NITROGEN (test code = MG/DL 9-20 BUN) GLOMERULAR FILTRATION RATE (test code = GFR) CREATININE (test code = CREAT) MG/DL 0.66-1.25 CALCIUM (test code = CA) MG/DL 8.7-9.7 CBC W/AUTO [id number] 14:43:00 Test Item Value Reference Range Interpretation Comments WHITE BLOOD CELL (test code = 12.4 K/MM3 3.8-9.8 H WBC) RED BLOOD CELL (test code = 4.03 M/MM3 3.95-5.67 RBC) HEMOGLOBIN (test code = HGB) 12.5 G/DL 12.4-16.7 HEMATOCRIT (test code = HCT) 39.9 % 35.9-49.5 MEAN CELL VOLUME (test code = 99 fL 81.7-96.1 H MCV) MEAN CELL HGB (test code = MCH) 31.0 pg 27.6-33.2 N MEAN CELL HGB CONCETRATION 31.3 % 32.9-35.5 L (test code = MCHC) RED CELL DISTRIBUTION WIDTH 13.3 % 12.1-15.2 N (test code = RDW) PLATELET COUNT (test code = 266 K/MM3 129-368 N PLT) MEAN PLATELET VOLUME (test code 8.9 fl 7.4-10.4 N = MPV) NEUTROPHIL % (test code = NT%) 93.9 % 43-75 H IMMATURE GRANULOCYTE % (test 1.1 % 0.0-2.0 N code = IG%) LYMPHOCYTE % (test code = LY%) 3.1 % 14-44 L MONOCYTE % (test code = MO%) 1.4 % 4-13 L EOSINOPHIL % (test code = EO%) 0.1 % 0-6 N BASOPHIL % (test code = BA%) 0.4 % 0-2 N NUCLEATED RBC % (test code = 0.0 % 0-1.0 N NRBC%) NEUTROPHIL # (test code = NT#) 11.68 K/mm3 2.0-7.6 H IMMATURE GRANULOCYTE # (test 0.14 x10 3/uL 0-0.03 H code = IG#) LYMPHOCYTE # (test code = LY#) 0.38 K/mm3 1.0-3.8 L MONOCYTE # (test code = MO#) 0.18 K/mm3 0.1-0.8 N EOSINOPHIL # (test code = EO#) 0.01 K/mm3 0.0-0.2 N BASOPHIL # (test code = BA#) 0.05 K/mm3 0.0-0.2 N NUCLEATED RBC # (test code = 0.00 K/mm3 0.0-0.1 N NRBC#) - CHEST [id number] 14:08:00 [facility] : 1950 Sex: M Patient Name: ALEXIS GAUTHIER Unit No: [id number] EXAMS: CPT CODE: [id number] XR CHEST 1V [id number] EXAM: - XR CHEST 1V HISTORY: AFIB COMPARISON: None FINDINGS: The lungs are clear. No pleural effusion or pneumothorax. The cardiac silhouette is within normal limits. No acute osseous abnormalities.IMPRESSION: No acute cardiopulmonary disease. 20 at 1408 Reported and signed by: Shahzad Sharp MD CC: Lan Ledbetter MD; Ryan Lambert Technologist: Alexis Frausto, RT(R) Transcrpt Date/Tm/Trnsp: 07/24/2020 (1408) [id number] Orig Print D/T: S: 07/24/2020 (0206) [facility] NAME: ALEXIS GAUTHIER [id number] PHYS: [place] [address] : 1950 AGE: 70 SEX: M LOC: [id number].SI12 A PHONE #: [phone] EXAM DATE: 07/24/2020 STATUS: ADM IN FAX #: [phone] RADIOLOGY NO: PAGE 1 [id number] 09:58:00 Test Item Value Reference Range Interpretation Comments ACT-ISTAT (test code = ACTI) 340 SEC 74-137 H [id number] 09:58:00 Test Item Value Reference Range Interpretation Comments ACT-ISTAT (test code = ACTI) 340 SEC 74-137 H BASIC METABOLIC [id number] 07:40:00 Test Item Value Reference Range Interpretation Comments SODIUM (test code = 137 MMOL/L 137-145 N NA) POTASSIUM (test code = 4.4 MMOL/L 3.5-5.1 N K) CHLORIDE (test code = 103 MMOL/L 98-107 N CL) CARBON DIOXIDE (test 28 MMOL/L 22-30 N code = CO2) GLUCOSE (test code = 92 MG/DL 74-106 N GLU) BLOOD UREA NITROGEN 17 MG/DL 9-20 N (test code = BUN) GLOMERULAR FILTRATION > 60 Report ing units: RATE (test code = GFR) ml/mi n/1.73 m2 (Modified MDRD Formula)Referen ce Range: > or = 6 0 ml/min/1.73 m2 CREATININE (test code 1.00 MG/DL 0.66-1.25 N = CREAT) CALCIUM (test code = 9.3 MG/DL 8.4-10.2 N CA) RECOLLECTION NEEDED ON 07/24/20 AT 0656 BY [email or web address]: HEMOLYZEDNOTIFIED PATIENT CARE STAFF: [id number] 07:40:00 Test Item Value Reference Range Interpretation Comments MAGNESIUM (test code = MAG) 2.2 MG/DL 1.6-2.3 N RECOLLECTION NEEDED ON 07/24/20 AT 0656 BY [id number]: HEMOLYZEDNOTIFIED PATIENT CARE STAFF: [facility] METABOLIC [id number] 07:39:00 Test Item Value Reference Range Interpretation Comments SODIUM (test code = 137 MMOL/L 137-145 N NA) POTASSIUM (test code = 4.4 MMOL/L 3.5-5.1 N K) CHLORIDE (test code = 103 MMOL/L 98-107 N CL) CARBON DIOXIDE (test 28 MMOL/L 22-30 N code = CO2) GLUCOSE (test code = 92 MG/DL 74-106 N GLU) BLOOD UREA NITROGEN 17 MG/DL 9-20 N (test code = BUN) GLOMERULAR FILTRATION > 60 Report ing units: RATE (test code = GFR) ml/mi n/1.73 m2 (Modified MDRD Formula)Referen ce Range: > or = 6 0 ml/min/1.73 m2 CREATININE (test code 1.00 MG/DL 0.66-1.25 N = CREAT) CALCIUM (test code = MG/DL 8.7-9.7 CA) RECOLLECTION NEEDED ON 07/24/20 AT 06 BY [email or web address]: HEMOLYZEDNOTIFIED PATIENT CARE STAFF: [id number] 07:39:00 Test Item Value Reference Range Interpretation Comments MAGNESIUM (test code = MAG) MG/DL 1.6-2.3 RECOLLECTION NEEDED ON 07/24/20 AT 0656 BY [id number]: HEMOLYZEDNOTIFIED PATIENT CARE STAFF: LUASIC METABOLIC [id number] 07:36:00 Test Item Value Reference Range Interpretation Comments SODIUM (test code = NA) 137 MMOL/L 137-145 N POTASSIUM (test code = K) 4.4 MMOL/L 3.5-5.1 N CHLORIDE (test code = CL) 103 MMOL/L 98-107 N CARBON DIOXIDE (test code = CO2) MMOL/L 22-30 GLUCOSE (test code = GLU) MG/DL 74-106 BLOOD UREA NITROGEN (test code = MG/DL 9-20 BUN) GLOMERULAR FILTRATION RATE (test code = GFR) CREATININE (test code = CREAT) MG/DL 0.66-1.25 CALCIUM (test code = CA) MG/DL 8.7-9.7 RECOLLECTION NEEDED ON 07/24/20 AT 06 BY [id number]: HEMOLYZEDNOTIFIED PATIENT CARE STAFF: [id number] 07:36:00 Test Item Value Reference Range Interpretation Comments MAGNESIUM (test code = MAG) MG/DL 1.6-2.3 RECOLLECTION NEEDED ON 07/24/20 AT 06 BY [id number]: HEMOLYZEDNOTIFIED PATIENT CARE STAFF: LUEPROTHROMBIN [id number] 06:49:00 Test Item Value Reference Range Interpretation Comments PROTHROMBIN TIME 13.1 SECONDS 9.4-12.5 H PATIENT (test code = PTP) INTERNATIONAL NORMAL 1.2 The INR is to be RATIO (test code = used only for INR) monitoring oral anticoagulantth erap y. INDICATION I NR VALUE ---- ---- ---- -------1. Prophylaxis, de ep venous thrombos is, including high risk surgery. 2.0 - 3.0 2. Prophylaxis, deep venous thrombosis, hip surgery, treatm ent for deep venous thrombosis or pulmonary prevention of systemic emboli sm in patients wit h valvular heart disease, atrial fibrillation, tissue heart va lve, or acute myocar dial infarction. 2.0 - 3.0 3. Handstitching Machine Collar Feller al prosthesis hear t valves, recurre nt systemic emboli sm. 3.0 - 4.5 PTT [id number] 06:49:00 Test Item Value Reference Range Interpretation Comments PTT ACTIVATED (test code = APTT) 31.1 SECONDS 25.1-36.5 N CBC W/AUTO [id number] 06:39:00 Test Item Value Reference Range Interpretation Comments WHITE BLOOD CELL (test code = 6.6 K/MM3 3.8-9.8 N WBC) RED BLOOD CELL (test code = 4.85 M/MM3 3.95-5.67 N RBC) HEMOGLOBIN (test code = HGB) 15.4 G/DL 12.4-16.7 N HEMATOCRIT (test code = HCT) 47.2 % 35.9-49.5 N MEAN CELL VOLUME (test code = 97 fL 81.7-96.1 H MCV) MEAN CELL HGB (test code = MCH) 31.8 pg 27.6-33.2 N MEAN CELL HGB CONCETRATION 32.6 % 32.9-35.5 L (test code = MCHC) RED CELL DISTRIBUTION WIDTH 13.4 % 12.1-15.2 N (test code = RDW) PLATELET COUNT (test code = 251 K/MM3 129-368 N PLT) MEAN PLATELET VOLUME (test code 8.9 fl 7.4-10.4 N = MPV) NEUTROPHIL % (test code = NT%) 71.0 % 43-75 N IMMATURE GRANULOCYTE % (test 0.6 % 0.0-2.0 N code = IG%) LYMPHOCYTE % (test code = LY%) 11.3 % 14-44 L MONOCYTE % (test code = MO%) 14.2 % 4-13 H EOSINOPHIL % (test code = EO%) 2.3 % 0-6 N BASOPHIL % (test code = BA%) 0.6 % 0-2 N NUCLEATED RBC % (test code = 0.0 % 0-1.0 N NRBC%) NEUTROPHIL # (test code = NT#) 4.67 K/mm3 2.0-7.6 N IMMATURE GRANULOCYTE # (test 0.04 x10 3/uL 0-0.03 H code = IG#) LYMPHOCYTE # (test code = LY#) 0.74 K/mm3 1.0-3.8 L MONOCYTE # (test code = MO#) 0.93 K/mm3 0.1-0.8 H EOSINOPHIL # (test code = EO#) 0.15 K/mm3 0.0-0.2 N BASOPHIL # (test code = BA#) 0.04 K/mm3 0.0-0.2 N NUCLEATED RBC # (test code = 0.00 K/mm3 0.0-0.1 N NRBC#) COVID 19 Asymptomatic IH [id number] 16:28:00 Test Item Value Reference Range Interpretation Comments COVID 19 NEGATIVE Negative "Negative resul ts from Asymptomatic IH AG patients with symptom (test code = onset beyondfiv e days, COVNONPUIAG) should be treat ed as presumptive, andconfirmation with a molecular assay , if necessary forpa tient management may be performed. Nega tive results do notr ule out COVID-19 and sh ould not be used as the sole basisfor treatm ent or patient managem ent decisions, includinginfect ion control decisio ns. Negative result s should beconsidered in the context of a pa tients recent exposure s,history, and the presenc e of clinical signs and symptomsconsist ent with COVID-19.This t est detects both vi able andnon-viable S ARS-CoV and SARS CoV-2. Test performance dep endson the amount of virus (antigen) in the sample." [place] MODIFIED BARIUM [id number] 20:13:39HISTORY: Dysphagia. TECHNIQUE: Swallowing function was evaluated with the patient sittingupright in a chair, using video-assisted C-arm fluoroscopy, in the presenceof speech therapist. Swallowing function was evaluated using thin barium,thick barium, barium mixed with pudding, piece of oanh cracker.FINDINGS: Swallowing function appeared normal. Patient was able to formbolus of food, initiation of swallowing without any significant difficultyand the food material as well as barium flowed through the cervicalesophagus without any obstruction or aspiration. A persistent linear filling defect is seen in the upper cervical esophagusclose to the level of larynx which could be a mucosal web. 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 Otherwise normal study. [facility], Radiant Results Inft User - 07/03/2020 3:14 PM CDTHISTORY: Dysphagia.TECHNIQUE: Swallowing function was evaluated with the patient sittingupright in a chair, using video-assisted C-arm fluoroscopy, in the presenceof speech therapist. Swallowing function was evaluated using thin barium,thick barium, barium mixed with pudding, piece of oanh cracker.FINDINGS: Swallowing function appeared normal. 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 Otherwise normal study.[facility]
[2022-09-09 12:10] LABS: Urine Blood 3+ (Negative); Urine Glucose Negative (Negative); Urine Protein 1+ (Negative); Urine Specific Gravity 1.015 (1.005-1.030); Urine pH 6.5 (5.0-7.0)
[2022-09-09 12:27] LABS: Urine Bacteria None Seen /HPF (<20); Urine RBC >50 /HPF (None Seen)
[2022-09-09] MEDS ORDERED: CEFTRIAXONE 1000 MG/VIAL ONE (12:45)
[2022-09-09] MEDS ORDERED: NA CHLORIDE 0.9% 500 ML ONE (12:45)
[2022-09-09] MEDS ORDERED: NA CHLORIDE 0.9% 50 ML IV ONE (12:45)
--- NOTE | 2022-09-09 12:45 | RAD REPORT ---
EXAM DESCRIPTION: CT - Stone Protocol - 09/09/2022 12:32 pm CLINICAL HISTORY: Hematuria COMPARISON: None. TECHNIQUE: Computed axial tomography of the abdomen pelvis was obtained without oral or IV contrast. Lack of IV and oral contrast limits evaluation of solid organs, appendix, bowel, and vessels. Hopson l reformatted images were obtained and reviewed. All CT scans are performed using dose optimization technique as appropriate and may include automated exposure control or mA/KV adjustment according to patient size. FINDINGS: A renal calculus is not seen. An ureteral calculus is not noted. A bladder calculus is not present. No hydronephrosis. The liver, spleen, pancreas and adrenals appear grossly normal There is no evidence of diverticulitis. The appendix appears normal Left inguinal hernia repair. Left hip arthroplasty. Right testicle within the inguinal canal. Partial fusion right SI joint. Moderate amount of stool wit hin the colon IMPRESSION: Negative for a genitourinary calculus
--- NOTE | 2022-09-09 13:14 | RAD REPORT ---
EXAM DESCRIPTION: Foster Single View09/09/2022 12:34 pm CLINICAL HISTORY: Cough COMPARISON: 2011 FINDINGS: Seven millimeter nodular opacity overlies right upper lobe. It is deep equivocally calcifi ed. The remainder of the lungs appear clear of acute infiltrate. The heart is normal size IMPRESSION: 7 millimeter nodular opacity overlies the right upper lobe. This may represent a lung g ranuloma. Other considerations include a noncalcified lung nodule and sclerotic foci within the rib. It is recommended that the patient have a followup chest film including obliques in 3 months for re-e valuation
[2022-09-09 13:34] LABS: Absolute Lymphocytes (CBC) 0.6 K/uL (0.7-4.9); Hematocrit 46.7 % (39.6-49.0); Lymphocytes % 10.1 % (15.3-44.8); MCV 93.8 fL (80-100); MPV 7.7 fL (7.6-11.3); Protime INR 1.98; RBC Red Blood Cell Count 4.97 M/uL (4.33-5.43)
[2022-09-09 13:50] LABS: Albumin 3.7 g/dL (3.4-5.0); Bilirubin Direct 0.2 mg/dL (0-0.2); Bilirubin Total 0.6 mg/dL (0.2-1.0); Magnesium 2.1 mg/dL (1.6-2.4); Potassium 4.6 mmol/L (3.5-5.1); Protein, Total 6.8 g/dL (6.4-8.2); Troponin High Sensitivity 13.8 pg/mL (<58.9)
[2022-09-09] MEDS ORDERED: NA CHLORIDE 0.9% 1,000 ML ONE (14:15)
--- NOTE | 2022-09-09 14:27 | EDPHYS ---
Physician Documentation [facility] Name: Dale Gauthier Age: 72 yrs Sex: Male : 1950 Arrival Date: 09/09/2022 Time: 11:41 Bed 24 Private MD: CHUCKY Physician Domo Rahman HPI: 09/09 14:15 This 72 yrs old Male presents to ER via Ambulatory with complaints of Urinary iraida Problem. 14:15 The patient presents with urinary symptoms, hematuria. Onset: The symptoms/episode iraida began/occurred 1 day(s) ago. Modifying factors: The symptoms are alleviated by nothing, the symptoms are aggravated by nothing. Associated signs and symptoms: The patient has no apparent associated signs or symptoms. Severity of symptoms: At their worst the symptoms were mild, in the emergency department the symptoms are unchanged. The patient has not experienced similar symptoms in the past. hematuria, no complaints of pain. Historical: - Allergies: 11:57 Latex, Natural Rubber (Rash); aa5 - PMHx: 11:57 Atrial Flutter; aa5 - PSHx: 11:57 Skin Cancer to scalp and hand; Heart Ablation; Left hip Replacement; Left Achilles; aa5 Hernia (left groin); Tonsillectomy; - Immunization history:: Adult Immunizations unknown. - Social history:: Smoking status: Patient denies any tobacco usage or history of. - Family history:: not pertinent. ROS: 14:17 Constitutional: Negative for fever, chills, and weight loss, Eyes: Negative for injury, iraida pain, redness, and discharge, ENT: Negative for injury, pain, and discharge, Neck: Negative for injury, pain, and swelling, Cardiovascular: Negative for chest pain, palpitations, and edema, Respiratory: Negative for shortness of breath, cough, wheezing, and pleuritic chest pain, Abdomen/GI: Negative for abdominal pain, nausea, vomiting, diarrhea, and constipation, Back: Negative for injury and pain, MS/Extremity: Negative for injury and deformity, Skin: Negative for injury, rash, and discoloration, Neuro: Negative for headache, weakness, numbness, tingling, and seizure, Psych: Negative for depression, anxiety, suicide ideation, homicidal ideation, and hallucinations, Allergy/Immunology: Negative for hives, rash, and allergies, Endocrine: Negative for neck swelling, polydipsia, polyuria, polyphagia, and marked weight changes, Hematologic/Lymphatic: Negative for swollen nodes, abnormal bleeding, and unusual bruising. 14:17 : Positive for hematuria. Exam: 14:17 Constitutional: This is a well developed, well nourished patient who is awake, alert, iraida and in no acute distress. Head/Face: Normocephalic, atraumatic. Eyes: Pupils equal round and reactive to light, extra-ocular motions intact. Lids and lashes normal. Conjunctiva and sclera are non-icteric and not injected. Cornea within normal limits. Periorbital areas with no swelling, redness, or edema. ENT: Nares patent. No nasal discharge, no septal abnormalities noted. Tympanic membranes are normal and external auditory canals are clear. Oropharynx with no redness, swelling, or masses, exudates, or evidence of obstruction, uvula midline. Mucous membranes moist. Neck: Trachea midline, no thyromegaly or masses palpated, and no cervical lymphadenopathy. Supple, full range of motion without nuchal rigidity, or vertebral point tenderness. No Meningismus. Chest/axilla: Normal chest wall appearance and motion. Nontender with no deformity. No lesions are appreciated. Cardiovascular: Regular rate and rhythm with a normal S1 and S2. No gallops, murmurs, or rubs. Normal PMI, no JVD. No pulse deficits. Respiratory: Lungs have equal breath sounds bilaterally, clear to auscultation and percussion. No rales, rhonchi or wheezes noted. No increased work of breathing, no retractions or nasal flaring. Abdomen/GI: Soft, non-tender, with normal bowel sounds. No distension or tympany. No guarding or rebound. No evidence of tenderness throughout. Back: No spinal tenderness. No costovertebral tenderness. Full range of motion. Male : Normal genitalia with no discharge or lesions. Skin: Warm, dry with normal turgor. Normal color with no rashes, no lesions, and no evidence of cellulitis. MS/ Extremity: Pulses equal, no cyanosis. Neurovascular intact. Full, normal range of motion. Neuro: Awake and alert, GCS 15, oriented to person, place, time, and situation. Cranial nerves II-XII grossly intact. Motor strength 5/5 in all extremities. Sensory grossly intact. Cerebellar exam normal. Normal gait. Psych: Awake, alert, with orientation to person, place and time. Behavior, mood, and affect are within normal limits. 14:17 ECG was reviewed by the Attending Physician. Vital Signs: 11:55 BP 156 / 59; Pulse 46; Resp 16 S; Temp 98.6(TE); Pulse Ox 100% on R/A; Weight 62.14 kg aa5 (R); Height 5 ft. 8 in. (172.72 cm) (R); 12:30 BP 156 / 58; Pulse 49; Resp 18; Pulse Ox 100% on R/A; eh3 13:30 BP 148 / 61; Pulse 42; Resp 18; Pulse Ox 100% on R/A; eh3 14:30 BP 149 / 66; Pulse 44; Resp 18; Pulse Ox 100% on R/A; eh3 11:55 Body Mass Index 20.83 (62.14 kg, 172.72 cm) aa5 MDM: 11:45 Patient medically screened. [facility] 14:19 Differential diagnosis: nonspecific abdominal pain, UTI, urinary retention, iraida prostatitis, urethritis. Data reviewed: vital signs, nurses notes, lab test result(s), EKG, radiologic studies, CT scan, plain films. Data interpreted: patient monitor: rate is 49 beats/min, rhythm is regular, Pulse oximetry: on room air is 100 %. Test interpretation: by ED physician or midlevel provider: ECG, plain radiologic studies. Counseling: I had a detailed discussion with the patient and/or guardian regarding: the historical points, exam findings, and any diagnostic results supporting the discharge/admit diagnosis, lab results, radiology results, the need for outpatient follow up, for definitive care, a family practitioner, a urologist. 09/09 11:51 Order name: Urine Microscopic Only; Complete Time: 13:53 iraida 09/09 12:10 Order name: Urine Dipstick-Ancillary; Complete Time: 13:53 EDMS 09/09 12:17 Order name: Basic Metabolic Panel; Complete Time: 13:53 iraida 09/09 12:17 Order name: CBC with Diff; Complete Time: 13:53 iraida 09/09 12:17 Order name: LFT's; Complete Time: 13:53 iraida 09/09 12:17 Order name: Magnesium; Complete Time: 13:53 iraida 09/09 12:17 Order name: NT PRO-BNP; Complete Time: 13:53 [facility] 09/09 12:17 Order name: PT-INR; Complete Time: 13:53 [facility] 09/09 12:17 Order name: Troponin HS; Complete Time: 13:53 [facility] 09/09 12:17 Order name: XRAY Chest (1 view); Complete Time: 13:53 [facility] 09/09 12:17 Order name: CT Stone Protocol; Complete Time: 13:53 [facility] 09/09 12:30 Order name: Urine Culture [facility] 09/09 11:51 Order name: Urine Dipstick-Ancillary (obtain specimen); Complete Time: 12:19 [facility] 09/09 12:17 Order name: EKG; Complete Time: 12:18 [facility] 09/09 12:17 Order name: Cardiac monitoring; Complete Time: 12:19 [facility] 09/09 12:17 Order name: EKG - Nurse/Tech; Complete Time: 13:22 [facility] 09/09 12:17 Order name: IV Saline Lock; Complete Time: 13:22 [facility] 09/09 12:17 Order name: Labs collected and sent; Complete Time: 13:25 [facility] 09/09 12:17 Order name: O2 Per Protocol; Complete Time: 12:19 [facility] 09/09 12:17 Order name: O2 Sat Monitoring; Complete Time: 12:19 [facility] EC:17 Rate is 47 beats/min. Rhythm is regular. QRS Boyers is Normal. ID interval is normal. QRS iraida interval is normal. QT interval is normal. No Q waves. T waves are Normal. No ST changes noted. Clinical impression: Sinus bradycardia and No evidence of ischemia. Interpreted by me. Reviewed by me. Administered Medications: 13:00 Drug: Rocephin (cefTRIAXone) 1 grams Route: IV; Rate: per protocol; Site: right forearm;3 14:00 Follow up: Response: No adverse reaction; IV Status: Completed infusion; IV Intake: [id number] 13:45 Drug: NS 0.9% 500 ml Route: IV; Rate: bolus; Site: right forearm; eh3 14:45 Follow up: IV Status: Completed infusion; IV Intake: 500ml eh3 14:46 Not Given (Patient Refused): NS 0.9% 1000 ml IV at 125 ml/hr continuous eh3 Disposition Summary: 09/09/22 14:26 Discharge Ordered Location: Home iraida Problem: new iraida Symptoms: have improved iraida Condition: Stable iraida Diagnosis - Hematuria, unspecified iraida - Paroxysmal atrial fibrillation iraida Followup: iraida - With: Private Physician - When: 2 - 3 days - Reason: Recheck today's complaints, Continuance of care, Re-evaluation by your physician Followup: iraida - With: Isaias Gomez DO - When: 2 - 3 days - Reason: Recheck today's complaints, Re-evaluation by your physician Followup: iraida - With: Presley Rodrigues MD - When: 2 - 3 days - Reason: Recheck today's complaints, Re-evaluation by your physician Discharge Instructions: - Discharge Summary Sheet iraida - Atrial Fibrillation iraida - Hematuria, Adult iraida - Atrial Fibrillation, [id number] iraida Forms: - Medication Reconciliation Form iraida - Thank You Letter iraida - Antibiotic Education iraida - Prescription Opioid Use iraida Prescriptions: - Cephalexin 500 mg Oral Capsule - take 1 capsule by ORAL route every 6 hours for 7 days; 28 capsule; Refills: 0, iraida Product Selection Permitted Signatures: Dispatcher [employer] EDDomo Lynn MD MD cha Mickail, Joel, PA PA jmm Calderon, Audri, RN RN aa5 Jessica Mckeon RN RN eh3 Corrections: (The following items were deleted from the chart) 12:00 11:57 Allergies: No Known Allergies; marilin gaston
--- NOTE | 2022-09-09 14:27 | ER ---
Nurse's Notes [facility] Name: Dale Gauthier Age: 72 yrs Sex: Male : 1950 Arrival Date: 09/09/2022 Time: 11:41 Bed 24 Private MD: Diagnosis: Hematuria, unspecified;Paroxysmal atrial fibrillation Presentation: 09/09 11:55 Chief complaint: Patient states: "my urine seemed unusual today and I think it's aa5 blood". Coronavirus screen: At this time, the client does not indicate any symptoms associated with coronavirus-19. Ebola Screen: Patient denies travel to an Ebola-affected area in the 21 days before illness onset. Initial Sepsis Screen: Does the patient meet any 2 criteria? No. Patient's initial sepsis screen is negative. Does the patient have a suspected source of infection? No. Patient's initial sepsis screen is negative. Risk Assessment: Do you want to hurt yourself or someone else? Patient reports no desire to harm self or others. Onset of symptoms was September 09, 2022. 11:55 Acuity: HOLLY 3 aa5 11:55 Method Of Arrival: Ambulatory aa5 Historical: - Allergies: 11:57 Latex, Natural Rubber (Rash); aa5 - PMHx: 11:57 Atrial Flutter; aa5 - PSHx: 11:57 Skin Cancer to scalp and hand; Heart Ablation; Left hip Replacement; Left Achilles; aa5 Hernia (left groin); Tonsillectomy; - Immunization history:: Adult Immunizations unknown. - Social history:: Smoking status: Patient denies any tobacco usage or history of. - Family history:: not pertinent. Screenin:30 [facility] ED Fall Risk Assessment (Adult) History of falling in the last 3 months, eh3 including since admission No falls in past 3 months (0 pts) Confusion or Disorientation No (0 pts) Intoxicated or Sedated No (0 pts) Impaired Gait No (0 pts) Mobility Assist Device Used No (0 pt) Altered Elimination No (0 pt) Score/Fall Risk Level 0 - 2 = Low Risk. Abuse screen: Denies threats or abuse. Denies injuries from another. Nutritional screening: No deficits noted. Tuberculosis screening: No symptoms or risk factors identified. Assessment: 12:30 General: Appears in no apparent distress. comfortable, Behavior is calm, cooperative, eh3 appropriate for age. Pain: Denies pain. Neuro: Level of Consciousness is awake, alert, obeys commands, Oriented to person, place, time, situation. Cardiovascular: Capillary refill < 3 seconds Patient's skin is warm and dry. Respiratory: Airway is patent Respiratory effort is even, unlabored, Respiratory pattern is regular, symmetrical. GI: No signs and/or symptoms were reported involving the gastrointestinal system. Abdomen is flat, non-distended. : Reports blood in urine since last night. EENT: No signs and/or symptoms were reported regarding the EENT system. Derm: petechiae on lo lower legs. Musculoskeletal: Circulation, motion, and sensation intact. Range of motion: intact in all extremities. 13:30 Reassessment: Patient appears in no apparent distress at this time. Patient and/or eh3 family updated on plan of care and expected duration. Pain level reassessed. Patient is alert, oriented x 3, equal unlabored respirations, skin warm/dry/pink. 14:30 Reassessment: Patient appears in no apparent distress at this time. Patient and/or eh3 family updated on plan of care and expected duration. Pain level reassessed. Patient is alert, oriented x 3, equal unlabored respirations, skin warm/dry/pink. Vital Signs: 11:55 BP 156 / 59; Pulse 46; Resp 16 S; Temp 98.6(TE); Pulse Ox 100% on R/A; Weight 62.14 kg aa5 (R); Height 5 ft. 8 in. (172.72 cm) (R); 12:30 BP 156 / 58; Pulse 49; Resp 18; Pulse Ox 100% on R/A; eh3 13:30 BP 148 / 61; Pulse 42; Resp 18; Pulse Ox 100% on R/A; eh3 14:30 BP 149 / 66; Pulse 44; Resp 18; Pulse Ox 100% on R/A; eh3 11:55 Body Mass Index 20.83 (62.14 kg, 172.72 cm) aa5 ED Course: 11:41 Patient arrived in ED. rg4 11:45 Domo Rahman MD is Attending Physician. iraida 11:55 Arm band placed on. aa5 11:56 Triage completed. aa5 12:19 Jessica Mckeon, DOROTA is Primary Nurse. eh3 12:30 Patient has correct armband on for positive identification. Bed in low position. Call eh3 light in reach. Side rails up X2. Adult w/ patient. Client placed on continuous cardiac and pulse oximetry monitoring. NIBP monitoring applied. Door closed. Noise minimized. Warm blanket given. 12:30 Missed attempt(s): 20 gauge in left forearm. Bleeding controlled, band aid applied, eh3 catheter tip intact. 12:33 CT Stone Protocol In Process Unspecified. EDMS 12:36 XRAY Chest (1 view) In Process Unspecified. EDMS 13:27 Initial lab(s) drawn, by me, sent to lab. Inserted saline lock: 20 gauge in right jw7 forearm, using aseptic technique. Blood collected. 13:28 Basic Metabolic Panel Sent. jw7 13:28 CBC with Diff Sent. jw7 13:28 LFT's Sent. jw7 13:28 Magnesium Sent. jw7 13:28 NT PRO-BNP Sent. jw7 13:28 PT-INR Sent. jw7 13:28 Troponin HS Sent. [facility] 14:24 Isaias Gomez DO is Referral Physician. iraida 14:24 Presley Rodrigues MD is Referral Physician. iraida 14:50 No provider procedures requiring assistance completed. IV discontinued, intact, eh3 bleeding controlled, No redness/swelling at site. Pressure dressing applied. Administered Medications: 13:00 Drug: Rocephin (cefTRIAXone) 1 grams Route: IV; Rate: per protocol; Site: right forearm;eh3 14:00 Follow up: Response: No adverse reaction; IV Status: Completed infusion; IV Intake: [id number] 13:45 Drug: NS 0.9% 500 ml Route: IV; Rate: bolus; Site: right forearm; eh3 14:45 Follow up: IV Status: Completed infusion; IV Intake: 500ml eh3 14:46 Not Given (Patient Refused): NS 0.9% 1000 ml IV at 125 ml/hr continuous eh3 Medication: 14:50 VIS not applicable for this client. eh3 Intake: 14:00 IV: 50ml; Total: 50ml. eh3 14:45 IV: 500ml; Total: 550ml. eh3 Outcome: 14:26 Discharge ordered by . iraida 14:50 Patient left the ED. eh3 14:50 Discharged to home ambulatory. eh3 14:50 Condition: stable 14:50 Discharge instructions given to patient, family, Instructed on discharge instructions, follow up and referral plans. medication usage, Demonstrated understanding of instructions, follow-up care, medications, Prescriptions given X 1. Signatures: Dispatcher [employer] Domo Benavides MD MD cha Calderon, Audri, RN RN aa5 Gloria Hodge4 Ursula Seaman7 Jessica Mckeon RN RN eh3 Corrections: (The following items were deleted from the chart) 12:00 11:57 Allergies: No Known Allergies; marilin gaston
[2022-09-09 15:00] VITALS: TEMP 98.6; O2SAT 100
[2022-09-09 15:05] VITALS: BP 156/58
--- NOTE | 2022-09-10 15:23 | EKG ---
Test Date: 2022-09-09 Test Time: 12:51:42 Inspector Packer: PAPA MEASUREMENT RESULTS: Intervals: Rate: 47 MD: 192 QRSD: 86 QT: 478 QTc: 423 [place]: P: 95 MD: 192 QRS: -6 T: 75 INTERPRETIVE STATEMENTS: Sinus bradycardia Low voltage QRS Nonspecific ST abnormality Abnormal ECG Compared to ECG 02/08/2008 06:36:56 Low QRS voltage now present ST (T wave) deviation now present Electronically Signed On 09-10-22 15:21:42 PACKING ROOM WORKER by Karel Perera
== END 2022-09-09 14:50 | disposition home or self-care (01) ==
LOC: ER 11:35
DX: R31.9 Hematuria, unspecified (principal); I48.0 Paroxysmal atrial fibrillation; Z91.040 Latex allergy status; Z91.048 Other nonmedicinal substance allergy status
CPT/HCPCS: 96365; 96361; 93005; 87088; 85025; 87086; 80048; 36415; 83735; 85610; 80076; 84484; 83880; 76377; 74176; 71045; 99284; J7040; J7030; 81003; 81015